=== PATIENT | male | born 1955 ===

== ENCOUNTER 2020-06-27 08:20 | Outpatient (REF) | payer OTHER, SELFPAY ==
[2020-06-27 09:43] LABS: Hematocrit 43.5 % (42-52); Hemoglobin 14.7 g/dl (14.0-18.0); Mean Corpuscular HGB Conc 33.8 g/dl (31.0-36.0); Mean Corpuscular Hemoglobin 31.7 pg (27.0-33.0); Mean Corpuscular Volume 93.8 fL (80-98); Mean Platelet Volume 11.2 fL (9.4-12.4); Platelet Count 212 X10*3/uL (160-400); Red Blood Count 4.64 X10*6/uL (4.60-5.80); Red Cell Distribution Width 12.4 % (11.0-16.0)
[2020-06-27 10:06] LABS: Estimated Average Glucose 128 mg/dL; Hemoglobin A1c % 6.1 %
[2020-06-27 10:27] LABS: Alanine Aminotransferase 22 U/L (0-40); Albumin Level 4.4 g/dL (3.5-5.0); Alkaline Phosphatase 80 U/L (39-117); Anion Gap 12 (12-20); Aspartate Amino Transferase 19 U/L (5-37); Bilirubin Total 1.2 mg/dL (0.0-1.0); Blood Urea Nitrogen 20 mg/dL (9-16); Calcium 8.7 mg/dL (8.4-10.2); Carbon Dioxide 25 mmol/L (22-29); Chloride 106 mmol/L (96-108); Cholesterol 213 mg/dL; Estimated Glomerular Filt Rate > 60; Glucose Random 116 mg/dL (60-115); HDL Cholesterol 46 mg/dL; LDL Cholesterol Calculated 134 mg/dl; Potassium 4.4 mmol/l (3.3-5.1); Sodium 139 mmol/L (135-145); Total Protein 6.8 g/dL (6.5-8.0); Triglycerides 168 mg/dL
[2020-06-27 10:39] LABS: Prostate Specific Antigen 1.99 ng/mL (<0.05-4.0); Vitamin D 25-OH Total 28.1 ng/mL (>30)
[2020-06-27 10:43] LABS: Creatinine Urine 149.12 mg/dL
== END 2020-06-27 08:21 | disposition home or self-care (01) ==
LOC: HO.LAB 08:20
PROVIDERS: PCP Nurse Practitioner Family; Visit Provider Nurse Practitioner Family
DX: E55.9 Vitamin D deficiency, unspecified (principal); E78.2 Mixed hyperlipidemia; I10 Essential (primary) hypertension; N52.9 Male erectile dysfunction, unspecified; R73.09 Other abnormal glucose; Z71.89 Other specified counseling; Z87.442 Personal history of urinary calculi
CPT/HCPCS: 36415; 80053; 80061; 82043; 82306; 83036; 84153; 85027

== ENCOUNTER 2020-07-16 11:06 | Outpatient (REF) | payer MEDICARE, SELFPAY ==
--- NOTE | 2020-07-16 11:12 | XR_ITS ---
EXAMINATION: XR CERVICAL SPINE CLINICAL INFORMATION: Headache, neck pain. COMPARISON: None TECHNIQUE: 6 views of the cervical spine were obtained. FINDINGS: There is mild straightening of the normal cervical lordosis with normal spinal alignment. Mild to moderate multilevel degenerative disc disease is seen most pronounced at C5-6 and C6-7. There is no acute fracture. Mild neural foraminal narrowing is seen at C5-6 and C6-7. The facet joints are unremarkable. The odontoid process is intact. The prevertebral soft tissues are unremarkable. XR/XR cervical spine 4V IMPRESSION: Mild to moderate multilevel degenerative changes as detailed above. Mild straightening of the normal cervical lordosis may be secondary to positioning and/or muscle spasm.
== END 2020-07-16 11:07 | disposition home or self-care (01) ==
LOC: HO.XRAY 11:06
PROVIDERS: PCP Nurse Practitioner Family; Visit Provider Nurse Practitioner Family
DX: M54.2 Cervicalgia (principal); R51.9 Headache, unspecified
CPT/HCPCS: 72050

== ENCOUNTER 2021-06-13 07:29 | Outpatient (REF) | payer MEDICARE, SELFPAY ==
[2021-06-13 09:21] LABS: Cholesterol 225 mg/dL; HDL Cholesterol 41 mg/dL; LDL Cholesterol Calculated 136 mg/dl; Triglycerides 244 mg/dL
== END 2021-06-13 07:30 | disposition home or self-care (01) ==
LOC: HO.LAB 07:29
PROVIDERS: PCP General Practice; Visit Provider General Practice
DX: E78.2 Mixed hyperlipidemia (principal)
CPT/HCPCS: 36415; 80061

== ENCOUNTER 2021-07-13 15:11 | Outpatient (REF) | payer MEDICARE, SELFPAY ==
--- NOTE | ~2021-07-13 | XR_ITS ---
EXAMINATION: XR CHEST CLINICAL INFORMATION: Essential hypertension. COMPARISON: Chest radiograph dated from 11/16/2018. TECHNIQUE: 2 views of the chest were obtained. FINDINGS: No significant abnormality is noted involving the heart, lungs, mediastinum, bony thorax or soft tissues. XR/XR chest 2V IMPRESSION: Unremarkable examination.
== END 2021-07-13 15:12 | disposition home or self-care (01) ==
LOC: HO.XRAY 15:11
PROVIDERS: Absent Provider General Practice; PCP General Practice; Visit Provider Emergency Medicine
DX: I10 Essential (primary) hypertension (principal); M79.622 Pain in left upper arm
CPT/HCPCS: 71046

== ENCOUNTER 2021-07-31 09:03 | Outpatient (REF) | payer MEDICARE, SELFPAY | END 2021-07-31 09:04 | disposition home or self-care (01) | LOC: HO.HMGCLDS 09:03 | PROVIDERS: Visit Provider Internal Medicine | DX: Z20.822 Contact with and (suspected) exposure to COVID-19 (principal) | CPT/HCPCS: C9803; U0003; U0005 ==

== ENCOUNTER 2021-09-21 08:25 | Outpatient (REF) | payer MEDICARE, SELFPAY ==
[2021-09-21 09:45] LABS: Binax Internal Control QC Valid; Binax Now Covid-19 Ag Negative (Negative)
== END 2021-09-21 08:26 | disposition home or self-care (01) ==
LOC: HO.LAB 08:25
PROVIDERS: Visit Provider Internal Medicine
DX: Z20.822 Contact with and (suspected) exposure to COVID-19 (principal)
CPT/HCPCS: C9803

== ENCOUNTER 2021-09-30 07:24 | Outpatient (REF) | payer MEDICARE, SELFPAY ==
--- NOTE | ~2021-09-30 | XR_ITS ---
EXAMINATION: XR HIP, LEFT CLINICAL INFORMATION: Left hip pain. COMPARISON: None TECHNIQUE: AP view of the pelvis as well as AP and frog-leg lateral views of the left hip. FINDINGS: Bilateral coxa varus angulation at the hips. Mild bilateral hip joint space narrowing with small marginal osteophytes. Small marginal osteophytes at the symphysis pubis. No osseous erosion. No fracture or dislocation. No abnormal soft tissue calcification. XR/XR hip LT w PEL1V IMPRESSION: 1. Bilateral coxa varus angulation of the hips. 2. Mild bilateral hip osteoarthritis. 3. Mild degenerative arthritis at the symphysis pubis.
--- NOTE | ~2021-09-30 | XR_ITS ---
EXAMINATION: XR LUMBOSACRAL SPINE CLINICAL INFORMATION: Lumbago, left-sided sciatica COMPARISON: CT abdomen and pelvis noncontrast 08/01/2017, lumbar spine radiographs 03/03/2015. TECHNIQUE: 4 views of the lumbar spine are obtained. FINDINGS: There is normal lumbar segmentation with 5 nonrib-bearing lumbar vertebrae of normal height. There is borderline levocurvature upper lumbar spine similar to prior study. Spina bifida occulta again noted lumbosacral junction. There is no interval lumbar vertebral compression or destructive process or definite spondylolisthesis. Again, there is borderline wedging vertebral body L1. Degenerative disc changes again noted at L1-L2 with L2-L3 and facet degeneration lumbosacral junction. The SI joints and visualized sacrum are unremarkable. Accentuated sacral kyphosis contour is stable. There is a calculus overlying lower pole right kidney approximately 0.6 cm. Other calculi noted previously is not visible on current exam. Surgical clips right upper quadrant are consistent with prior cholecystectomy. No gas unremarkable. XR/XR lumbar spine 2-3V IMPRESSION: 1. Mild wedging T1 similar to prior exams. No acute vertebral compression, spondylolisthesis, or or destructive process. 2. Degenerative disc changes L1-L2 and L2-L3, facet degeneration lumbosacral junction.
== END 2021-09-30 07:25 | disposition home or self-care (01) ==
LOC: HO.XRAY 07:24
PROVIDERS: Absent Provider General Practice; PCP General Practice; Visit Provider Internal Medicine
DX: M25.552 Pain in left hip (principal); M54.42 Lumbago with sciatica, left side
CPT/HCPCS: 72100; 73502

== ENCOUNTER 2021-12-18 09:31 | Outpatient (REF) | payer OTHER, SELFPAY ==
[2021-12-18 10:08] LABS: COVID-19 Test Negative (Negative)
== END 2021-12-18 09:32 | disposition home or self-care (01) ==
LOC: HO.LAB 09:31
PROVIDERS: Visit Provider Internal Medicine
DX: Z20.822 Contact with and (suspected) exposure to COVID-19 (principal)
CPT/HCPCS: 87635; C9803

== ENCOUNTER → 2021-12-23 13:40 | Outpatient (BNVA) | payer OTHER, SELFPAY | PROVIDERS: PCP General Practice; Visit Provider Psychiatry & Neurology Neurology | DX: G24.3 Spasmodic torticollis (principal); M54.2 Cervicalgia | CPT/HCPCS: 99212 ==

== ENCOUNTER → 2022-01-28 10:27 | Outpatient (REF) | payer OTHER, SELFPAY ==
--- NOTE | ~2022-01-28 | XR_ITS ---
EXAMINATION: XR CERVICAL SPINE CLINICAL INFORMATION: Cervicalgia COMPARISON: Cervical spine radiograph from 09/15/2019 TECHNIQUE: 4 views of the cervical spine were obtained. FINDINGS: No acute visible fracture or dislocation. Moderate multilevel degenerative changes disc space narrowing, endplate sclerosis, osteophyte formation, and facet arthropathy. Very slight grade 1 anterolisthesis of C4 on C5. Visualized dens is intact. Lateral masses are symmetric. Vertebral body heights and disc spaces are maintained. Prevertebral soft tissues are unremarkable. Posterior elements are intact. Paraspinal soft tissues are unremarkable. Visualized portions of the upper chest are unremarkable. XR/XR cervical spine 3V IMPRESSION: 1. No acute visible fracture or dislocation. 2. Moderate multilevel degenerative changes. 3. Very slight grade 1 anterolisthesis of C4 on C5
== END | disposition home or self-care (01) ==
LOC: HO.XRAY 10:27
PROVIDERS: PCP General Practice; Visit Provider Psychiatry & Neurology Neurology
DX: M54.2 Cervicalgia (principal)
CPT/HCPCS: 72040

== ENCOUNTER 2022-02-11 06:57 | Outpatient (RCR) | payer OTHER, SELFPAY ==
[2022-02-11 07:08] VITALS: BP 155/82; PULSE 72; O2SAT 97
== END 2022-03-31 14:49 | disposition home or self-care (01) ==
LOC: HO.PT 06:57
PROVIDERS: PCP General Practice; Visit Provider General Practice
DX: M54.2 Cervicalgia (principal)
CPT/HCPCS: 97112; 97162

== ENCOUNTER → 2022-02-23 08:17 | Outpatient (BNVA) | payer OTHER, SELFPAY | PROVIDERS: PCP General Practice; Visit Provider Nurse Practitioner Family | DX: R25.1 Tremor, unspecified (principal); G24.3 Spasmodic torticollis; M54.2 Cervicalgia | CPT/HCPCS: 99212 ==

== ENCOUNTER 2022-06-17 13:18 | Outpatient (REF) | payer OTHER, SELFPAY ==
--- NOTE | 2022-06-17 09:00 | EMG_ITS ---
Right median and ulnar motor and sensory studies were performed. Right radial sensory study was performed. Paraspinal muscles were tested with a needle. IMPRESSION: 1. Mild right median neuropathy across carpal tunnel. 2. Right mid to upper chronic cervical radiculopathy. MD TRACEE Matute/JASE / [id number]
== END 2022-06-17 13:19 | disposition home or self-care (01) ==
LOC: HO.NEURO 13:18
PROVIDERS: Visit Provider Nurse Practitioner Family
DX: G24.3 Spasmodic torticollis (principal); M54.2 Cervicalgia
CPT/HCPCS: 95886; 95909

== ENCOUNTER → 2022-06-29 09:13 | Outpatient (BNVA) | payer OTHER, SELFPAY | PROVIDERS: PCP General Practice; Visit Provider Nurse Practitioner Family | DX: M54.2 Cervicalgia (principal); R25.1 Tremor, unspecified; G47.33 Obstructive sleep apnea (adult) (pediatric); G56.01 Carpal tunnel syndrome, right upper limb | CPT/HCPCS: 99212 ==

== ENCOUNTER → 2022-11-02 08:03 | Outpatient (BNVA) | payer OTHER, SELFPAY | PROVIDERS: PCP General Practice; Visit Provider Nurse Practitioner Family | DX: M48.02 Spinal stenosis, cervical region (principal); M54.2 Cervicalgia; G24.9 Dystonia, unspecified; G47.33 Obstructive sleep apnea (adult) (pediatric); R25.1 Tremor, unspecified | CPT/HCPCS: 99212 ==

== ENCOUNTER 2022-11-10 11:15 | Outpatient (REF) | payer OTHER, SELFPAY ==
--- NOTE | ~2022-11-10 | XR_ITS ---
EXAMINATION: XR CHEST CLINICAL INFORMATION: Bilateral posterior chest pain COMPARISON: None available. TECHNIQUE: 2 views of the chest were obtained. FINDINGS: No significant abnormality is noted involving the heart, lungs, mediastinum, bony thorax or soft tissues. XR/XR chest 2V IMPRESSION: Unremarkable chest examination.
== END 2022-11-10 11:16 | disposition home or self-care (01) ==
LOC: HO.XRAY 11:15
PROVIDERS: PCP General Practice; Visit Provider Emergency Medicine
DX: R07.89 Other chest pain (principal)
CPT/HCPCS: 71046

== ENCOUNTER → 2022-11-23 12:20 | Outpatient (REF) | payer OTHER, SELFPAY | LOC: HO.SL 12:20 | PROVIDERS: Visit Provider Nurse Practitioner Family | DX: G47.33 Obstructive sleep apnea (adult) (pediatric) (principal) | CPT/HCPCS: 95806 ==

== ENCOUNTER → 2022-12-01 08:05 | Outpatient (BNVA) | payer OTHER, SELFPAY | PROVIDERS: PCP General Practice; Visit Provider Physician Assistant | DX: M54.12 Radiculopathy, cervical region (principal) | CPT/HCPCS: 99202 ==

== ENCOUNTER → 2022-12-07 08:39 | Outpatient (BNVA) | payer OTHER, SELFPAY | PROVIDERS: PCP General Practice; Visit Provider Physician Assistant | DX: R25.1 Tremor, unspecified (principal) | CPT/HCPCS: 99202 ==

== ENCOUNTER 2022-12-25 19:36 | Emergency (ER) | payer OTHER, SELFPAY ==
--- NOTE | ~2022-12-25 | CT_ITS ---
EXAMINATION: CT ABDOMEN AND PELVIS WITHOUT CONTRAST CLINICAL INFORMATION: Left-sided flank pain. COMPARISON: Renal ultrasound 06/26/2019. CT abdomen/pelvis 08/01/2017. TECHNIQUE: Multidetector volumetric imaging was performed from the superior aspect of the liver through the pubic symphysis. Sagittal and coronal reformatted images were obtained on the technologist's workstation. This CT examination was performed using dose optimization techniques as appropriate, variously including the following: *Automated exposure control *Adjustment of mA and/or kV according to patient size (this includes techniques or standardized protocols for targeted exams where dose is matched to indication/reason for exam; i.e. extremities or head) *Use of iterative reconstruction technique DLP: 740 mGy-cm FINDINGS: LUNG BASES: Multiple calcified granulomas. Evaluation of parenchymal details and a small pulmonary nodules is limited due to motion. No focal consolidation or pleural effusion. LIVER, GALLBLADDER, AND BILIARY TREE: Decreased attenuation of the liver parenchyma suggesting hepatic steatosis. Otherwise, liver is normal in size and shape. No discrete focal lesion is limited noncontrast examination. Cholecystectomy. No biliary ductal dilatation. PANCREAS: Limited noncontrast examination, unremarkable. SPLEEN: Unremarkable. ADRENAL GLANDS: No adrenal mass. KIDNEYS AND URETERS: There is a 3 mm calculus in the left ureteropelvic junction with mild upstream hydronephrosis. There is a 0.6 cm nonobstructive calculus in the lower right kidney and an additional 0.2 cm calculus in the interpolar right kidney. No evidence of right-sided hydroureteronephrosis. There is a 3.5 cm simple fluid attenuating cortical cyst in the upper left kidney, for which no imaging follow-up is recommended. BLADDER: Partially under distended limiting assessment of wall thickening. No calcified intraluminal calculi or significant perivesical fat stranding. GASTROINTESTINAL TRACT: Nonspecific gastric distention, likely related with postprandial state. The small bowel is nondilated. Normal appendix. Colonic diverticulosis. No pericolonic inflammatory changes or evidence of bowel obstruction. ABDOMINAL WALL: Small left-sided greater than right fat-containing inguinal hernias. LYMPH NODES: No lymphadenopathy. VASCULAR: Abdominal aorta is normal in caliber. PELVIC VISCERA: Mild prostatomegaly. OSSEOUS STRUCTURES: No acute or aggressive appearing osseous abnormalities. Degenerative changes of the spine. CT/CT abdomen pelvis wo IV con IMPRESSION: 1. There is a 3 mm calculus in the left ureteropelvic junction with mild upstream hydroureteronephrosis. 2. Nonobstructive right-sided renal calculi. 3. Nonspecific gastric distention, possibly related with postprandial state. However, gastroparesis is not excluded, correlate clinically. 4. Hepatic steatosis. 5. Diverticulosis but no evidence of acute diverticulitis.
[2022-12-25 19:53] VITALS: BP 145/84; PULSE 88; RESP 16; TEMP 36.7; O2SAT 95; BMI 33.4
--- NOTE | 2022-12-25 19:57 | ED.GENADULT ---
HPI - General Adult General Chief complaint: General Medical <BIN Salazar - Last Filed: 12/25/22 20:02> Stated complaint: lower back and abd pain, difficulty breathing <BIN Salazar - Last Filed: 12/25/22 20:02> Time Seen by Provider: 12/25/22 20:32 <BIN Salazar - Last Filed: 12/25/22 20:02> Source: patient <Riley Rascon MD - Last Filed: 12/26/22 01:22> Mode of arrival: ambulatory <Riley Rascon MD - Last Filed: 12/26/22 01:22> Limitations: no limitations <Riley Rascon MD - Last Filed: 12/26/22 01:22> History of Present Illness HPI narrative: Patient with history of kidney stone noticed sudden onset of pain in the left flank left upper abdomen radiating to left testicle and left thigh no fever no chills no hematuria no urinary symptom <Riley Rascon MD - Last Filed: 12/26/22 01:22> Related Data Home medications: Home Medications Medication Instructions Recorded Confirmed acetaminophen 650 mg 650 mg PO Q8H PRN 12/23/21 11/02/22 tablet,extended release (Mapap Arthritis Pain) fluticasone propionate 50 spray intranasal 12/23/21 11/02/22 mcg/actuation nasal spray,suspension sildenafil 100 mg tablet (Viagra) 50 - 100 mg PO DAILY PRN 12/23/21 11/02/22 ergocalciferol (vitamin D2) 1,250 1,250 mcg PO QWEEK 06/29/22 11/02/22 mcg (50,000 unit) capsule lisinopril 10 1 tab PO DAILY 06/29/22 11/02/22 mg-hydrochlorothiazide 12.5 mg tablet ketorolac 0.5 % eye drops 1 drp ophthalmic (eye) TID 11/02/22 11/02/22 Previous Rx's Medication Instructions Recorded azelastine 137 mcg (0.1 %) nasal 2 spray intranasal BID 28 days #30 11/02/22 spray aerosol mL oxycodone 5 mg tablet 5 mg PO Q6H PRN pain #20 tabs 12/25/22 tamsulosin 0.4 mg capsule (Flomax) 0.4 mg PO BEDTIME #10 caps 12/25/22 <BIN Salazar - Last Filed: 12/25/22 20:02> Allergies/adverse reactions: Allergies Allergy/AdvReac Type Severity Reaction Status Date / Time No Known Allergies Allergy Verified 12/07/22 09:30 <BIN Salazar - Last Filed: 12/25/22 20:02> Review of Systems Review of Systems: Yes all other systems are reviewed and are negative <Riley Rascon MD - Last Filed: 12/26/22 01:22> [facility] Past Medical History Medical History: Medical History HTN (hypertension) Hyperlipidemia Obesity <BIN Salazar - Last Filed: 12/25/22 20:02> Surgical History: Surgical History Hx of carpal tunnel repair Hx of cataract surgery Hx of cholecystectomy Hx of hernia repair Hx of tonsillectomy <BIN Salazar - Last Filed: 12/25/22 20:02> Family History Family History: Family History Sister Diabetes Son GALLO (obstructive sleep apnea) <BIN Salazar - Last Filed: 12/25/22 20:02> Social History Social History: Social History Alcohol intake: never Patient Tobacco Use Status: Never used Tobacco Advance Directives: No Advance Directives Information Provided: Yes Current occupational status: employed 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, 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 <BIN Salazar - Last Filed: 12/25/22 20:02> Physical Exam ED Vital Signs: Vital Signs - 24 hr 12/25/22 19:53 12/25/22 21:05 12/25/22 22:53 Temperature 98.1 F Pulse Rate 88 90 77 Respiratory Rate 16 16 16 Blood Pressure 145/84 H 136/72 122/66 Pulse Oximetry 95 95 95 Oxygen Delivery Method Room Air Room Air Room Air BMI result Body Mass Index 33.4 <BIN Salazar - Last Filed: 12/25/22 20:02> Vital Signs - 24 hr 12/25/22 19:53 12/25/22 21:05 12/25/22 22:53 Temperature 98.1 F Pulse Rate 88 90 77 Respiratory Rate 16 16 16 Blood Pressure 145/84 H 136/72 122/66 Pulse Oximetry 95 95 95 Oxygen Delivery Method Room Air Room Air Room Air BMI result Body Mass Index 33.4 <Riley Rascon MD - Last Filed: 12/26/22 01:22> Appearance: Alert. Oriented X3. In moderate distress. Eyes: No pallor it ENT: Pharynx normal. Oral Mucosa moist Neck: Normal inspection. Neck supple. CVS: Normal heart rate and rhythm. Pulses normal. Respiratory: No respiratory distress. Equal air entry bilateral, no wheezing/rales/rhonchi Abdomen: Soft tender left CVA and left upper abdomen. Bowel sounds are present, no mass palpable, L CVA tenderness Skin: Skin warm and dry. Normal skin color. Normal skin turgor. Extremities: No lower extremity edema. No calf tenderness left sciatic notch tenderness SLR positive at 60 degree left side Neuro: Oriented X 3. No motor deficit. No sensory deficit.No cerebellar signs , cranial nerves II-XII intact <Riley Rascon MD - Last Filed: 12/26/22 01:22> Course Course Course Narrative: This is an RME: Additional HPI, ROS, PE not included below will be deferred to primary provider. This is a 67-year-old male, with a past medical history of hypertension, hyperlipidemia, sleep apnea, and kidney stones presents emergency number with complaints of left-sided flank pain x 45 minutes. Patient denies any nausea or vomiting. Symptoms feel somewhat similar to kidney stones in the past. VSS. No urinary symptoms. No fevers or chills. Pt stable to return to the waiting room until treatment room becomes available. Plan: Labs, UA, CT abd and pelvis. <BIN Salazar - Last Filed: 12/25/22 20:02> Medications Administered Discontinued Medications Generic Name Dose Route Start Last Admin Trade Name Freq PRN Reason Stop Dose Admin Sodium Chloride 1,000 mls @ 999 mls/hr 12/25/22 20:45 12/25/22 22:52 Ns IV 12/25/22 21:45 Infused .Q1H1M ONE Infusion Ketorolac Tromethamine 30 mg 12/25/22 20:44 12/25/22 21:04 Ketorolac Tromethamine 30 Mg/Ml Vial IVPUSH 12/25/22 20:45 30 mg ONCE ONE Administration Morphine Sulfate 4 mg 12/25/22 20:45 12/25/22 21:02 Morphine Sulfate 4 Mg/Ml Cartridge IVPUSH 12/25/22 20:46 4 mg ONCE ONE Administration Protocol Ondansetron HCl 4 mg 12/25/22 20:45 12/25/22 21:02 Ondansetron Hcl 4 Mg/2 Ml Vial IVPUSH 12/25/22 20:46 4 mg ONCE ONE Administration Oxycodone HCl 10 mg 12/25/22 22:19 12/25/22 22:51 Oxycodone Hcl Immed Release 5 Mg Tablet PO 12/25/22 22:20 10 mg ONCE ONE Administration Tamsulosin HCl 0.4 mg 12/25/22 22:19 12/25/22 22:51 Tamsulosin Hcl 0.4 Mg Capsule PO 12/25/22 22:20 0.4 mg ONCE ONE Administration <BIN Salazar - Last Filed: 12/25/22 20:02> Medications Administered Discontinued Medications Generic Name Dose Route Start Last Admin Trade Name Freq PRN Reason Stop Dose Admin Sodium Chloride 1,000 mls @ 999 mls/hr 12/25/22 20:45 12/25/22 22:52 Ns IV 12/25/22 21:45 Infused .Q1H1M ONE Infusion Ketorolac Tromethamine 30 mg 12/25/22 20:44 12/25/22 21:04 Ketorolac Tromethamine 30 Mg/Ml Vial IVPUSH 12/25/22 20:45 30 mg ONCE ONE Administration Morphine Sulfate 4 mg 12/25/22 20:45 12/25/22 21:02 Morphine Sulfate 4 Mg/Ml Cartridge IVPUSH 12/25/22 20:46 4 mg ONCE ONE Administration Protocol Ondansetron HCl 4 mg 12/25/22 20:45 12/25/22 21:02 Ondansetron Hcl 4 Mg/2 Ml Vial IVPUSH 12/25/22 20:46 4 mg ONCE ONE Administration Oxycodone HCl 10 mg 12/25/22 22:19 12/25/22 22:51 Oxycodone Hcl Immed Release 5 Mg Tablet PO 12/25/22 22:20 10 mg ONCE ONE Administration Tamsulosin HCl 0.4 mg 12/25/22 22:19 12/25/22 22:51 Tamsulosin Hcl 0.4 Mg Capsule PO 12/25/22 22:20 0.4 mg ONCE ONE Administration <Riley Rascon MD - Last Filed: 12/26/22 01:22> Medical Decision Making Medical Decision Making [facility] Narrative: Patient is a 3 mm proximal left ureteric stone with mild hydronephrosis felt better after IV pain medication pain-free at time of discharge advised to follow up with his urologist will give him Flomax along with oxycodone for pain control <Riley Rascon MD - Last Filed: 12/26/22 01:22> Lab Data [facility] Lab Attestation statement: I reviewed the patient's lab results. <Riley Rascon MD - Last Filed: 12/26/22 01:22> Result Diagrams: 12/25/22 20:17 12/25/22 20:17 <BIN Salazar - Last Filed: 12/25/22 20:02> Labs: Lab Results 12/25/22 12/25/22 12/25/22 Range/Units 20:17 20:17 20:17 WBC 5.7 (4.8-10.8) X10*3/uL RBC 4.35 L (4.60-5.80) X10*6/uL Hgb 14.0 (14.0-18.0) g/dl Hct 40.7 L (42.0-52.0) % MCV 93.6 (80.0-98.0) fL MCH 32.2 (27.0-33.0) pg MCHC 34.4 (31.0-36.0) g/dl RDW 12.5 (11.0-16.0) % Plt Count 200 (160-400) X10*3/uL MPV 10.5 (9.4-12.4) fL Immature Gran % (Auto) 0.5 H (0.0-0.4) % Neut % (Auto) 57.7 (45-73) % Lymph % (Auto) 29.0 (20-40) % Door % (Auto) 9.2 (2-11) % Eos % (Auto) 2.7 (0-4) % Baso % (Auto) 0.9 (0-2) % Lymph # (Auto) 1.6 (1.2-4.9) X10*3/uL Door # (Auto) 0.5 (0.1-1.2) X10*3/uL Eos # (Auto) 0.2 (0.0-0.4) X10*3/uL Baso # (Auto) 0.1 (0.0-0.2) X10*3/uL Abs Immat Gran (auto) 0.03 (0.00-0.03) X10*3/uL Absolute Neuts (auto) 3.3 (2.0-8.3) x10*3/uL Absolute Nucleated RBC 0.000 (0.0-0.012) X10*3/uL Nucleated RBC % (auto) 0.0 (0.0-0.2) /100WBC Sodium 143 (135-145) mmol/L Potassium 3.9 (3.3-5.1) mmol/L Chloride 106 (96-108) mmol/L Carbon Dioxide 28 (22-29) mmol/L Anion Gap 13 (12-20) BUN 24 H (9-16) mg/dL Creatinine 1.53 H (0.5-1.4) mg/dL Estim Creat Clear Calc 52.1 Estimated GFR 45 Random Glucose 127 H (60-115) mg/dL Calcium 9.7 D (8.4-10.2) mg/dL Magnesium 2.1 (1.6-2.6) mg/dL Total Bilirubin 0.4 (0.0-1.0) mg/dL Direct Bilirubin 0.1 (0.0-0.5) mg/dL AST 16 (5-37) U/L ALT 19 (0-40) U/L Alkaline Phosphatase 81 (39-117) U/L Total Protein 6.8 (6.5-8.0) g/dL Albumin 4.2 (3.5-5.0) g/dL Lipase 64 (8-78) U/L Urine Color Yellow Urine Appearance Clear Urine pH 6.5 (5.0-9.0) Ur Specific Kake 1.015 (1.005-1.025) Urine Protein Negative (Neg-Trace) mg/dL Urine Glucose (UA) Negative (Negative) mg/dL Urine Ketones Negative (Negative) mg/dL Urine Blood Small (1+) H (Negative) Urine Nitrite Negative (Negative) Ur Leukocyte Esterase Negative (Negative) Urine RBC >20 H (0-2) /HPF Urine WBC 0-5 (0-5) /HPF Ur Squamous Epith Cells 0-2 (0-2) /HPF Urine Bacteria None Seen (None Seen) Hyaline Casts 0-2 (0-2) /LPF <BIN Salazar - Last Filed: 12/25/22 20:02> Lab Results 12/25/22 12/25/22 12/25/22 Range/Units 20:17 20:17 20:17 WBC 5.7 (4.8-10.8) X10*3/uL RBC 4.35 L (4.60-5.80) X10*6/uL Hgb 14.0 (14.0-18.0) g/dl Hct 40.7 L (42.0-52.0) % MCV 93.6 (80.0-98.0) fL MCH 32.2 (27.0-33.0) pg MCHC 34.4 (31.0-36.0) g/dl RDW 12.5 (11.0-16.0) % Plt Count 200 (160-400) X10*3/uL MPV 10.5 (9.4-12.4) fL Immature Gran % (Auto) 0.5 H (0.0-0.4) % Neut % (Auto) 57.7 (45-73) % Lymph % (Auto) 29.0 (20-40) % Door % (Auto) 9.2 (2-11) % Eos % (Auto) 2.7 (0-4) % Baso % (Auto) 0.9 (0-2) % Lymph # (Auto) 1.6 (1.2-4.9) X10*3/uL Door # (Auto) 0.5 (0.1-1.2) X10*3/uL Eos # (Auto) 0.2 (0.0-0.4) X10*3/uL Baso # (Auto) 0.1 (0.0-0.2) X10*3/uL Abs Immat Gran (auto) 0.03 (0.00-0.03) X10*3/uL Absolute Neuts (auto) 3.3 (2.0-8.3) x10*3/uL Absolute Nucleated RBC 0.000 (0.0-0.012) X10*3/uL Nucleated RBC % (auto) 0.0 (0.0-0.2) /100WBC Sodium 143 (135-145) mmol/L Potassium 3.9 (3.3-5.1) mmol/L Chloride 106 (96-108) mmol/L Carbon Dioxide 28 (22-29) mmol/L Anion Gap 13 (12-20) BUN 24 H (9-16) mg/dL Creatinine 1.53 H (0.5-1.4) mg/dL Estim Creat Clear Calc 52.1 Estimated GFR 45 Random Glucose 127 H (60-115) mg/dL Calcium 9.7 D (8.4-10.2) mg/dL Magnesium 2.1 (1.6-2.6) mg/dL Total Bilirubin 0.4 (0.0-1.0) mg/dL Direct Bilirubin 0.1 (0.0-0.5) mg/dL AST 16 (5-37) U/L ALT 19 (0-40) U/L Alkaline Phosphatase 81 (39-117) U/L Total Protein 6.8 (6.5-8.0) g/dL Albumin 4.2 (3.5-5.0) g/dL Lipase 64 (8-78) U/L Urine Color Yellow Urine Appearance Clear Urine pH 6.5 (5.0-9.0) Ur Specific Kake 1.015 (1.005-1.025) Urine Protein Negative (Neg-Trace) mg/dL Urine Glucose (UA) Negative (Negative) mg/dL Urine Ketones Negative (Negative) mg/dL Urine Blood Small (1+) H (Negative) Urine Nitrite Negative (Negative) Ur Leukocyte Esterase Negative (Negative) Urine RBC >20 H (0-2) /HPF Urine WBC 0-5 (0-5) /HPF Ur Squamous Epith Cells 0-2 (0-2) /HPF Urine Bacteria None Seen (None Seen) Hyaline Casts 0-2 (0-2) /LPF <Riley Rascon MD - Last Filed: 12/26/22 01:22> Radiology Impression Discussion of test interpretation with radiology: I have reviewed the radiologist's reading. <Riley Rascon MD - Last Filed: 12/26/22 01:22> Radiologist Impression: CT/CT abdomen pelvis wo IV con IMPRESSION: 1.? There is a 3 mm calculus in the left ureteropelvic junction with mild upstream hydroureteronephrosis. 2.? Nonobstructive right-sided renal calculi. 3.? Nonspecific gastric distention, possibly related with postprandial state. However, gastroparesis is not excluded, correlate clinically. 4.? Hepatic steatosis. 5.? Diverticulosis but no evidence of acute diverticulitis <Riley Rascon MD - Last Filed: 12/26/22 01:22> Discharge Plan Discharge Clinical Impression: Kidney stone on left side <BIN Salazar - Last Filed: 12/25/22 20:02> Patient Disposition: Home, Self-Care <BIN Salazar - Last Filed: 12/25/22 20:02> Instructions: Kidney Stones (ED) <BIN Salazar - Last Filed: 12/25/22 20:02> Additional Instructions: Drink plenty of fluids Pain medication as prescribed Take Flomax daily till you have pain/stone Follow with PCP/urologist <BIN Salazar - Last Filed: 12/25/22 20:02> Prescriptions: New oxycodone 5 mg tablet 5 mg PO Q6H PRN (Reason: pain) Qty: 20 0RF Rx Instructions: Partial Fill upon patient request. tamsulosin [Flomax] 0.4 mg capsule 0.4 mg PO BEDTIME Qty: 10 0RF No Action ketorolac 0.5 % drops 1 drp ophthalmic (eye) TID azelastine 137 mcg (0.1 %) aerosol,spray 2 spray intranasal BID 28 Days Qty: 30 3RF Rx Instructions: administer into each nostril fluticasone propionate 50 mcg/actuation spray,suspension intranasal sildenafil [Viagra] 100 mg tablet 50 - 100 mg PO DAILY PRN acetaminophen [Mapap Arthritis Pain] 650 mg tablet extended release 650 mg PO Q8H PRN lisinopril-hydrochlorothiazide 10-12.5 mg tablet 1 tab PO DAILY ergocalciferol (vitamin D2) 1,250 mcg (50,000 unit) capsule 1,250 mcg PO QWEEK <BIN Salazar - Last Filed: 12/25/22 20:02> Interventions: ED Discharge Assessment Last Done: 12/25/22 22:52 <BIN Salazar - Last Filed: 12/25/22 20:02> Discharge Date/Time: 12/25/22 23:01 <BIN Salazar - Last Filed: 12/25/22 20:02>
[2022-12-25 20:22] LABS: MANUAL DIFF FLAG NO
[2022-12-25 20:23] LABS: Basophils Absolute Auto 0.1 X10*3/uL (0.0-0.2); Basophils Percent Auto 0.9 % (0-2); Eosinophils Absolute Auto 0.2 X10*3/uL (0.0-0.4); Eosinophils Percent Auto 2.7 % (0-4); Hematocrit 40.7 % (42.0-52.0); Imm Gran Abs Auto 0.03 X10*3/uL (0.00-0.03); Imm Gran Pct Auto 0.5 % (0.0-0.4); Lymphocytes Absolute Auto 1.6 X10*3/uL (1.2-4.9); Mean Corpuscular HGB Conc 34.4 g/dl (31.0-36.0); Mean Corpuscular Hemoglobin 32.2 pg (27.0-33.0); Mean Corpuscular Volume 93.6 fL (80.0-98.0); Mean Platelet Volume 10.5 fL (9.4-12.4); Monocytes Absolute Auto 0.5 X10*3/uL (0.1-1.2); Monocytes Percent Auto 9.2 % (2-11); Neutrophils Absolute Auto 3.3 x10*3/uL (2.0-8.3); Neutrophils Percent Auto 57.7 % (45-73); Platelet Count 200 X10*3/uL (160-400); Red Blood Count 4.35 X10*6/uL (4.60-5.80); Red Cell Distribution Width 12.5 % (11.0-16.0); White Blood Count 5.7 X10*3/uL (4.8-10.8)
[2022-12-25 20:25] LABS: Appearance Urine Clear; Color Urine Yellow; Glucose Urine UA Negative (Negative); Leukocyte Esterase Urine Negative (Negative); Nitrite Urine Negative (Negative); PH 6.5 (5.0-9.0); Specific Gravity - Urine 1.015 (1.005-1.025); UMIC TRIGGER UACC YES; Urine Blood Small (1+) (Negative); Urine Ketones Negative (Negative); Urine Protein Negative (Neg-Trace)
[2022-12-25 20:38] LABS: Alanine Aminotransferase 19 U/L (0-40); Albumin Level 4.2 g/dL (3.5-5.0); Alkaline Phosphatase 81 U/L (39-117); Anion Gap 13 (12-20); Aspartate Amino Transferase 16 U/L (5-37); Bilirubin Direct 0.1 mg/dL (0.0-0.5); Bilirubin Total 0.4 mg/dL (0.0-1.0); Blood Urea Nitrogen 24 mg/dL (9-16); Calcium 9.7 mg/dL (8.4-10.2); Carbon Dioxide 28 mmol/L (22-29); Chloride 106 mmol/L (96-108); Creatinine Clr Calc Pharmacy 52.1; Estimated Glomerular Filt Rate 45; Glucose Random 127 mg/dL (60-115); Lipase 64 U/L (8-78); Magnesium 2.1 mg/dL (1.6-2.6); Potassium 3.9 mmol/L (3.3-5.1); Sodium 143 mmol/L (135-145); Total Protein 6.8 g/dL (6.5-8.0)
[2022-12-25] MEDS: ondansetron HCL 4 MG/2 ML VIAL IVPUSH (21:02)
[2022-12-25] MEDS: 0.9 % Sodium Chloride 1,000 ML 999 ML IV (21:02)
[2022-12-25] MEDS: Morphine Sulfate 4 MG/ML CARTRIDGE IVPUSH (21:02)
[2022-12-25] MEDS: Ketorolac Tromethamine 30 MG/ML VIAL IVPUSH (21:04)
[2022-12-25 21:05] VITALS: BP 136/72; PULSE 90; RESP 16; O2SAT 95
[2022-12-25 22:17] LABS: Bacteria Urine None Seen (None Seen); Hyaline Casts Urine 0-2 /LPF (0-2); RBC Urine >20 /HPF (0-2); Squamous Epithelial Cell Urine 0-2 /HPF (0-2); WBC Urine 0-5 /HPF (0-5)
[2022-12-25] MEDS: oxyCODONE HCl Immed Release 5 MG TABLET 10 MG PO (22:51)
[2022-12-25] MEDS: Tamsulosin HCL 0.4 MG CAPSULE PO (22:51)
[2022-12-25 22:53] VITALS: BP 122/66; PULSE 77; RESP 16; O2SAT 95
== END 2022-12-25 23:01 | disposition home or self-care (01) ==
PROVIDERS: Physician Assistant Medical; Emergency Provider Internal Medicine; PCP General Practice
DX: N13.2 Hydronephrosis with renal and ureteral calculous obstruction (principal); I10 Essential (primary) hypertension; E78.5 Hyperlipidemia, unspecified; Z79.899 Other long term (current) drug therapy
CPT/HCPCS: 36415; 74176; 80048; 80076; 81001; 83690; 83735; 85025; 96361; 96374; 96375; 99284; J1885; J2270; J2405

== ENCOUNTER → 2023-01-12 08:45 | Outpatient (BNVA) | payer OTHER, SELFPAY | PROVIDERS: PCP General Practice; Visit Provider Nurse Practitioner Family | DX: N40.1 Benign prostatic hyperplasia with lower urinary tract symptoms (principal); N13.8 Other obstructive and reflux uropathy; N39.43 Post-void dribbling; N20.0 Calculus of kidney; Z12.5 Encounter for screening for malignant neoplasm of prostate; Z79.899 Other long term (current) drug therapy | CPT/HCPCS: 51798; 99202 ==

== ENCOUNTER 2023-04-11 10:13 | Outpatient (REF) | payer OTHER, SELFPAY | END 2023-04-11 10:14 | disposition home or self-care (01) | LOC: HO.HMGCX 10:13 | PROVIDERS: PCP General Practice; Visit Provider Nurse Practitioner Family | DX: Z13.89 Encounter for screening for other disorder (principal) ==

== ENCOUNTER 2023-04-12 07:31 | Outpatient (REF) | payer OTHER, SELFPAY ==
[2023-04-12 09:39] LABS: PSA,Total (Free>4and<10) 2.69 ng/mL (0.00-4.00)
== END 2023-04-12 07:32 | disposition home or self-care (01) ==
LOC: HO.LAB 07:31
PROVIDERS: PCP General Practice; Visit Provider Nurse Practitioner Family
DX: Z12.5 Encounter for screening for malignant neoplasm of prostate (principal); N40.0 Benign prostatic hyperplasia without lower urinary tract symptoms
CPT/HCPCS: 36415; 84153

== ENCOUNTER 2023-04-15 08:11 | Outpatient (REF) | payer OTHER, SELFPAY ==
--- NOTE | ~2023-04-15 | US_ITS ---
EXAMINATION: US RETROPERITONEAL COMPLETE (RENAL) CLINICAL INFORMATION: Calculus of kidney. COMPARISON: CT abdomen and pelvis 12/25/2022. Renal ultrasound 06/26/2019 and 01/26/2018. X-ray abdomen KUB 01/21/2016. TECHNIQUE: Real-time imaging of the kidneys and bladder. Limited visualization due to bowel gas. FINDINGS: RIGHT KIDNEY: 11.4 x 5.5 x 6.3 cm (SAG x AP x TRV). There is a 5.0 x 5.3 x 4.4 cm hypoechoic mass superior to the right kidney, difficult to characterize due to limited visualization, possibly related to the right adrenal gland versus an exophytic right renal mass. No hydronephrosis. No renal calculi. Limited visualization. LEFT KIDNEY: 12.6 x 4.8 x 4.1 cm (SAG x AP x TRV). Upper pole 4.3 x 2.8 x 3.7 cm Bosniak 1 cyst. There is no indication for follow up imaging. Limited visualization. Midpole: 0.3 cm and 0.2 cm echogenic foci are characteristic of renal calculi. No hydronephrosis. BLADDER: Partially distended, limiting evaluation. Bilateral ureteral jets are demonstrated. Prevoid bladder volume is 191 mL. Postvoid bladder volume is 8.6 mL. Enlarged prostate, volume 46.8 mL, indents the floor of the bladder. US/US retroperitoneal comp IMPRESSION: 1. A 5.3 cm hypoechoic mass superior to the right kidney, difficult to characterize due to limited visualization, possibly related to the right adrenal gland versus an exophytic right renal mass. 2. Midpole 0.3 cm and 0.2 cm echogenic left renal calculi. No hydronephrosis. 3. Enlarged prostate, volume 46.8 mL, indents the floor of the bladder.
== END 2023-04-15 08:12 | disposition home or self-care (01) ==
LOC: HO.HMGCX 08:11
PROVIDERS: PCP General Practice; Visit Provider Nurse Practitioner Family
DX: N20.0 Calculus of kidney (principal); N39.43 Post-void dribbling
CPT/HCPCS: 76770

== ENCOUNTER 2023-04-18 17:37 | Outpatient (REF) | payer OTHER, SELFPAY ==
[2023-04-19 05:29] LABS: CT PCR NOT DETECTED (Not Detect.); NG PCR NOT DETECTED (Not Detect.)
== END 2023-04-18 17:38 | disposition home or self-care (01) ==
LOC: HO.HHCLNP 17:37
PROVIDERS: Visit Provider Internal Medicine
DX: R30.0 Dysuria (principal)
CPT/HCPCS: 0353U; 87086

== ENCOUNTER 2023-04-22 08:23 | Outpatient (AMB) | payer OTHER, SELFPAY ==
--- NOTE | 2023-04-22 08:35 | MHC.OFFVIS ---
Intake Intake Visit Reasons: 6w/US/PSA(set) Intake Note: Patient presents for follow up ultrasound/psa/nephrolithiasis/BPH Urology Medications: Vitamin B6 Blood Thinner: none PVR: 38ml's Inclusion Internship Required: No Information Interpreted: non-clinical only Accompanied by: Self / Same As Patient Allergies No Known Allergies Allergy (Verified 04/22/23 09:10) Medication List - Last Reconciled 04/22/23 by BO Rg-JAH acetaminophen ER (Mapap Arthritis Pain) 650 mg PO Q8H PRN ergocalciferol (vitamin D2) 1,250 mcg PO QWEEK fluticasone propionate 50 mcg/actuation sprays intranasal ketorolac 0.5% 1 drp ophthalmic (eye) TID lisinopril-hydrochlorothiazide 10-12.5 mg 1 tab PO DAILY pyridoxine (vitamin B6) 100 mg PO DAILY 90 days tamsulosin 0.4 mg PO QAM HPI HPI Comments History of Present Illness Details Palomo is a pleasant 67-year-old male patient of Dr. Lundy. He has a past medical history of hyperlipidemia, hypertension, GALLO, obesity, and cervical radiculopathy. He presents to the office today for a follow up. Of note, patient was seen approximately 3 months ago as a new patient for urinary dribbling and longstanding history of nephrolithiasis at which time a retroperitoneal ultrasound was ordered for further assessment evaluation. These results reviewed with the patient today. There is a 5.0 x 5.3 x 4.4 cm hypoechoic mass superior to the right kidney, difficult to characterize due to limited visualization, possibly related to the right adrenal gland versus an exophytic right renal mass. No hydronephrosis. No renal calculi. Limited visualization. Left kidney with upper pole 4.3 x 2.8 x 3.7 cm Bosniak 1 cyst. There is no indication for follow up imaging. Midpole: 0.3 cm and 0.2 cm echogenic foci are characteristic of renal calculi. No hydronephrosis. The bladder is partially distended, limiting evaluation. Bilateral ureteral jets are demonstrated. Prevoid bladder volume is approximately 200 mL. Postvoid bladder volume is approximately 10 mL. Enlarged prostate with a volume of approximately 45 mL. Patient with previous CT in November showing there is a 3.5 cm simple fluid attenuating cortical cyst in the upper left kidney, for which no imaging follow-up is recommended. However besides stones being noted within the right kidney no mass and or cyst noted in November imaging. Discussed ultrasound results compared to CT findings at length. Discussed further work up for assessment and evaluation. Patient agreeable. Discussed at length enlarged prostate noted on ultrasound as well as PSA 04/20--2.7. Discussed continuation of surveillance monitoring verses trial from master I would given lower urinary tract symptoms. He otherwise currently denies urinary urgency, urinary frequency, incontinence, hematuria, dysuria, foul smelling urine,flank pain, fever, and or chills. He does report urinary dribbling, nocturia, and changes to urinary stream. In office urinalysis results reviewed with the patient today. PVR 38 mL. Discussed at length importance of drinking adequate amount of fluid daily. Discussed pelvic floor exercises for urinary dribbling. Discussed limiting fluids 3-4 hours prior to bed to assist with decreasing episodes of nocturia. Patient otherwise denies any other issues or concerns at this time. 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 Review of Systems Const Reports as per HPI Eyes Reports no additional complaints ENT Reports no additional complaints Card Reports as per HPI Resp Reports as per HPI GI Reports no additional complaints Reports as per HPI Musc Reports no additional complaints Neuro Reports no additional complaints Psych Reports no additional complaints Endo Reports no additional complaints Ezekiel/Lymph Reports no additional complaints Aller/Immun Reports no additional complaints Physical Exam Const General: cooperative, healthy appearing, comfortable, no acute distress, well developed, alert and awake Orientation/consciousness: patient oriented x3 Limitations: no limitations HEENT Head: Yes normal to inspection, Yes normocephalic and Yes atraumatic Ears: hearing grossly normal bilaterally Eyes General: appearance normal, both eyes and all related structures Neck Neck: Yes normal visual inspection and Yes trachea midline Chest Chest palpation & inspection: normal inspection of the chest Resp Effort & Inspection: normal respiratory effort and able to speak in complete sentences Cardio Rate: regular rate GI Inspection: Yes normal to inspection General: Yes no CVA tenderness Back/Spine/Pelvis Back: no CVA tenderness Skin General skin exam: no rashes or lesions noted Neuro General: patient oriented x3 Extrem General: Yes normal to inspection Psych Appearance: grossly normal and well kempt Mental Status: mental status grossly normal Speech and movement: Normal speech and movement present and Clear speech present Affect: normal affect Attitude: cooperative Thought process: Normal thought process present Thought content: Normal thought content present Insight: Good insight present (Psych) Judgement: Good judgement present (Psych) Office Procedures Post Void Residual Post Residual Void Post Void Residual (PVR): 38 [id number] Void Residual by ultrasound Results AMB Urinalysis, Automated UA Leukoctes 0 Vesna/uL Last Edit by [employer] on 04/22/23 08:59 UA Nitrite Last Edit by [employer] on 04/22/23 08:59 UA Urobilinogen 0.2 mg/dL Last Edit by [employer] on 04/22/23 08:59 UA Protein 15 mg/dL Last Edit by [employer] on 04/22/23 08:59 UA pH 6.0 Last Edit by [employer] on 04/22/23 08:59 UA Blood 0 Ray/uL Last Edit by [employer] on 04/22/23 08:59 UA Specific [place] 1.025 Last Edit by [employer] on 04/22/23 08:59 UA Ketone Negative Last Edit by [employer] on 04/22/23 08:59 UA Bilirubin 0 mg/dL Last Edit by [employer] on 04/22/23 08:59 UA Glucose 0 mg/dL Last Edit by [employer] on 04/22/23 08:59 Results Reviewed Results Reviewed: Laboratory Last Values Urine pH (Auto) 6.0 04/22/23 08:45 Specific [place] (Auto) 1.025 04/22/23 08:45 Urine Protein (Auto) 15 mg/dL 04/22/23 08:45 Glucose (UA)(Auto) 0 mg/dL 04/22/23 08:45 Urine Ketones (Auto) Negative 04/22/23 08:45 Urine Blood (Auto) 0 Ray/uL 04/22/23 08:45 Urine Bilirubin (Auto) 0 mg/dL 04/22/23 08:45 Urine Urobilinogen (Auto) 0.2 mg/dL 04/22/23 08:45 Leukocyte Esterase (Auto) 0 Vesna/uL 04/22/23 08:45 Date of Service: 04/15/23 Procedure(s): US retroperitoneal comp FINDINGS: RIGHT KIDNEY: 11.4 x 5.5 x 6.3 cm (SAG x AP x TRV). There is a 5.0 x 5.3 x 4.4 cm hypoechoic mass superior to the right kidney, difficult to characterize due to limited visualization, possibly related to the right adrenal gland versus an exophytic right renal mass. No hydronephrosis. No renal calculi. Limited visualization. LEFT KIDNEY: 12.6 x 4.8 x 4.1 cm (SAG x AP x TRV). Upper pole 4.3 x 2.8 x 3.7 cm Bosniak 1 cyst. There is no indication for follow up imaging. Limited visualization. Midpole: 0.3 cm and 0.2 cm echogenic foci are characteristic of renal calculi. No hydronephrosis. BLADDER: Partially distended, limiting evaluation. Bilateral ureteral jets are demonstrated. Prevoid bladder volume is 191 mL. Postvoid bladder volume is 8.6 mL. Enlarged prostate, volume 46.8 mL, indents the floor of the bladder. IMPRESSION: 1. A 5.3 cm hypoechoic mass superior to the right kidney, difficult to characterize due to limited visualization, possibly related to the right adrenal gland versus an exophytic right renal mass. ? 2. Midpole 0.3 cm and 0.2 cm echogenic left renal calculi. No hydronephrosis. ? 3. Enlarged prostate, volume 46.8 mL, indents the floor of the bladder. 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 PVR 38 mL. Recent PSA results reviewed with the patient today; as noted above Recent retroperitoneal ultrasound results reviewed with the patient today; as noted above Previous CT results reviewed with the patient today; as noted above. Will obtain MRI renal mass protocol further assessment evaluation. Discussed, educated, and encouraged to continue drinking adequate amount of fluid daily. Discussed adding 1 oz of lemon juice to water daily. Discussed near future in office cystoscopy if symptoms persist and/or worsen. Start finasteride as discussed and prescribed. Follow-up in 1 month with imaging to be completed prior or sooner with any questions, concerns, and or issues. Orders: Orders MR abdomen wo/w con 04/22/23 N28.89 - Other specified disorders of kidney and ureter AMB Urinalysis Automated 04/22/23 N20.0 - Calculus of kidney, Z13.9 - Encounter for screening, unspecified AMB Post Void Residual by ultrasound 04/22/23 N39.43 - Post-void dribbling Medications: New finasteride 5 mg PO DAILY 90 days 90 tabs 3RF N40.0 - Benign prostatic hyperplasia without lower urinary tract symptoms Patient Instructions: The patient had an opportunity to ask questions regarding the treatment plan. All questions were answered. Physical exam, labs, and imaging were discussed and reviewed in detail. As well as risks, benefits, and discussion of treatment choices. No major barriers to understanding were identified. The patient expressed understanding and agreement with the above treatment plan. The patient was made aware they should contact our office by phone for worsening of their current condition, the appearance of new symptoms, or with any questions or concerns. Compliance is encouraged with any medications and follow up testing that is ordered. It is a privilege to be allowed the opportunity to participate in? your urological care.? Again, if you have any questions or concerns If you have any questions or concerns please do not hesitate to contact me. The office is [phone]. This note is constructed using voice recognition software. While every effort has been made to ensure accuracy research interviewer errors may have been included. Yours sincerely, Catarina Guevara, INVENTORY CONTROL CLERK-BC Coding Level of Care Code Est Pt Level 4 (42632) Diagnoses Renal mass N28.89 Angiolipoma D17.9 Recurrent nephrolithiasis N20.0 Urinary dribbling N39.43 Weak urinary stream R39.12 CPT Codes Post Residual Void - PVR CPT Code: 84297-Qtta Void Residual by ultrasound ([id number])
== END 2023-04-22 09:23 | disposition home or self-care (01) ==
PROVIDERS: PCP General Practice; Visit Provider Nurse Practitioner Family
DX: Z13.9 Encounter for screening, unspecified (principal); N20.0 Calculus of kidney
CPT/HCPCS: 99214

== ENCOUNTER → 2023-04-22 08:23 | Outpatient (BNVA) | payer OTHER, SELFPAY | PROVIDERS: Visit Provider Nurse Practitioner Family | DX: N28.89 Other specified disorders of kidney and ureter (principal); N20.0 Calculus of kidney; N39.43 Post-void dribbling; R39.12 Poor urinary stream; D17.9 Benign lipomatous neoplasm, unspecified | CPT/HCPCS: 51798; 81003; 99212 ==

== ENCOUNTER 2023-05-09 01:27 | Emergency (ER) | payer OTHER, SELFPAY ==
--- NOTE | ~2023-05-09 | XR_ITS ---
EXAMINATION: XR CHEST CLINICAL INFORMATION: Pain COMPARISON: 01/10/2023 TECHNIQUE: Frontal view of the chest was obtained. FINDINGS: The cardiomediastinal silhouette is normal. There is no focal lung consolidation or pleural effusion. The bony structures and soft tissues are unremarkable. XR/XR chest 1V IMPRESSION: No active cardiopulmonary disease.
--- NOTE | ~2023-05-09 | CT_ITS ---
EXAMINATION: CT ABDOMEN AND PELVIS WITHOUT CONTRAST CLINICAL INFORMATION: Abdominal pain. COMPARISON: None available. TECHNIQUE: Multidetector volumetric imaging was performed from the superior aspect of the liver through the pubic symphysis. Sagittal and coronal reformatted images were obtained on the technologist's workstation. This CT examination was performed using dose optimization techniques as appropriate, variously including the following: *Automated exposure control *Adjustment of mA and/or kV according to patient size (this includes techniques or standardized protocols for targeted exams where dose is matched to indication/reason for exam; i.e. extremities or head) *Use of iterative reconstruction technique DLP: 845 mGy-cm FINDINGS: LUNG BASES: The visualized lung bases are unremarkable. LIVER, GALLBLADDER, AND BILIARY TREE: The liver is of diminished attenuation. No focal liver lesions are seen. There is no intrahepatic biliary duct dilatation has been a prior cholecystectomy. PANCREAS: Unremarkable. SPLEEN: Unremarkable. ADRENAL GLANDS: Unremarkable. KIDNEYS AND URETERS: The kidneys are normal in size and position. There is a 4 cm cyst upper pole left kidney. There is a nonobstructing calculus within the right renal pelvis measuring 6 mm. There is also a 1 to 2 mm right midpole calculus. There is no hydronephrosis. BLADDER: Unremarkable. GASTROINTESTINAL TRACT: The small and large bowel are unremarkable. The appendix is unremarkable. ABDOMINAL WALL: No significant hernia is appreciated. LYMPH NODES: Normal. VASCULAR: Unremarkable. PELVIC VISCERA: Unremarkable. OSSEOUS STRUCTURES: There is diffuse thoracolumbar disc degenerative change. CT/CT abdomen pelvis wo IV con IMPRESSION: No left renal calculi or hydronephrosis. Nonobstructing right renal calculi. Fatty infiltration of the liver. Fleischner guidelines were followed.
--- NOTE | 2023-05-09 01:28 | ECG_ITS ---
Test Reason : CHEST PAIN Blood Pressure : / mmHG Vent. Rate : 068 BPM Atrial Rate : 068 BPM P-R Int : 162 ms QRS Dur : 140 ms QT Int : 386 ms P-R-T Axes : 054 -39 008 degrees QTc Int : 410 ms Normal sinus rhythm Left axis deviation Right bundle branch block Minimal voltage criteria for LVH, may be normal variant ( R in aVL ) Abnormal ECG When compared with ECG of 16-NOV-2018 10:58, No significant change was found Referred By: Generic ED Physician Electronically Signed By:MAMI CRUZ
[2023-05-09 01:36] VITALS: BP 132/75; PULSE 72; RESP 18; TEMP 36.7; O2SAT 97; BMI 33.0
[2023-05-09 02:02] LABS: MANUAL DIFF FLAG NO
[2023-05-09 02:04] LABS: Basophils Percent Auto 0.5 % (0-2); Eosinophils Absolute Auto 0.1 X10*3/uL (0.0-0.4); Eosinophils Percent Auto 1.5 % (0-4); Hematocrit 40.1 % (42.0-52.0); Imm Gran Abs Auto 0.03 X10*3/uL (0.00-0.03); Imm Gran Pct Auto 0.5 % (0.0-0.4); Lymphocytes Absolute Auto 1.8 X10*3/uL (1.2-4.9); Lymphocytes Percent Auto 29.5 % (20-40); Mean Corpuscular HGB Conc 34.9 g/dl (31.0-36.0); Mean Corpuscular Hemoglobin 32.6 pg (27.0-33.0); Mean Corpuscular Volume 93.3 fL (80.0-98.0); Mean Platelet Volume 10.8 fL (9.4-12.4); Monocytes Absolute Auto 0.7 X10*3/uL (0.1-1.2); Monocytes Percent Auto 11.5 % (2-11); Neutrophils Absolute Auto 3.4 x10*3/uL (2.0-8.3); Neutrophils Percent Auto 56.5 % (45-73); Platelet Count 186 X10*3/uL (160-400); Red Cell Distribution Width 12.9 % (11.0-16.0)
[2023-05-09 02:05] LABS: Appearance Urine Clear; Color Urine Yellow; Glucose Urine UA Negative (Negative); Leukocyte Esterase Urine Negative (Negative); Nitrite Urine Negative (Negative); PH 5.5 (5.0-9.0); Urine Blood Negative (Negative); Urine Ketones Negative (Negative); Urine Protein Negative (Neg-Trace)
[2023-05-09 02:10] LABS: Bacteria Urine None Seen (None Seen); RBC Urine 0-2 /HPF (0-2); Squamous Epithelial Cell Urine 0-2 /HPF (0-2); WBC Urine 0-5 /HPF (0-5)
[2023-05-09 02:32] VITALS: BP 113/82; PULSE 66; RESP 21; TEMP 36.8; O2SAT 96
[2023-05-09 02:35] LABS: Alanine Aminotransferase 33 U/L (0-40); Albumin Level 4.3 g/dL (3.5-5.0); Alkaline Phosphatase 57 U/L (39-117); Anion Gap 14 (12-20); Aspartate Amino Transferase 24 U/L (5-37); Bilirubin Total 0.5 mg/dL (0.0-1.0); Blood Urea Nitrogen 27 mg/dL (9-16); Calcium 10.5 mg/dL (8.4-10.2); Carbon Dioxide 25 mmol/L (22-29); Chloride 105 mmol/L (96-108); Creatinine Clr Calc Pharmacy 51.1; Estimated Glomerular Filt Rate 44; Glucose Random 107 mg/dL (60-115); Potassium 4.2 mmol/L (3.3-5.1); Sodium 140 mmol/L (135-145); Total Protein 7.1 g/dL (6.5-8.0); Troponin-I High Sensitivity < 2.7 ng/L (<3.5-35.0)
--- NOTE | 2023-05-09 02:35 | PC.NURSE ---
patient brought back from waiting room, changed into gown and placed on monitor. pt normal sinus rhythm, offers no complaints except for left flank pain x1 day. Reports increased frequency of urination but no burning or pain with urination
--- NOTE | 2023-05-09 03:11 | ED.GENADULT ---
HPI - General Adult General Chief complaint: Abdominal Pain Stated complaint: Chest Pain Time Seen by Provider: 05/09/23 03:08 Source: patient Mode of arrival: ambulatory Limitations: no limitations History of Present Illness HPI narrative: Patient with history of kidney stone woke up from sleep with sharp left flank pain no nausea no vomiting no hematuria no rash, pain increases on deep breath now feels better no chest pain or shortness of breath no fever or chills no urine complaints Related Data Home Medications Medication Instructions Recorded Confirmed acetaminophen 650 mg 650 mg PO Q8H PRN 12/23/21 04/22/23 tablet,extended release (Mapap Arthritis Pain) fluticasone propionate 50 spray intranasal 12/23/21 04/22/23 mcg/actuation nasal spray,suspension ergocalciferol (vitamin D2) 1,250 1,250 mcg PO QWEEK 06/29/22 04/22/23 mcg (50,000 unit) capsule lisinopril 10 1 tab PO DAILY 06/29/22 04/22/23 mg-hydrochlorothiazide 12.5 mg tablet ketorolac 0.5 % eye drops 1 drp ophthalmic (eye) TID 11/02/22 04/22/23 tamsulosin 0.4 mg capsule 0.4 mg PO QAM 04/22/23 04/22/23 Previous Rx's Medication Instructions Recorded pyridoxine (vitamin B6) 100 mg 100 mg PO DAILY 90 days #90 tabs 01/12/23 tablet finasteride 5 mg tablet 5 mg PO DAILY 90 days #90 tabs 04/22/23 Allergies Allergy/AdvReac Type Severity Reaction Status Date / Time No Known Allergies Allergy Verified 04/22/23 09:10 Review of Systems Review of Systems: Yes all other systems are reviewed and are negative [facility] Past Medical History Medical History Hyperlipidemia HTN (hypertension) Obesity Surgical History Hx of cataract surgery Hx of hernia repair Hx of cholecystectomy Hx of tonsillectomy Hx of carpal tunnel repair Family History Family History Sister Diabetes Son GALLO (obstructive sleep apnea) Social History Social History Alcohol intake: never Patient Tobacco Use Status: Never used Tobacco Smoked in Last 30 Days: No Use of substances other than those prescribed or required for medical reasons: No Advance Directives: No Advance Directives Information Provided: Yes Current occupational status: employed 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 Oriented X3. No acute distress. ENT: Pharynx normal. Oral Mucosa moist Neck: Normal inspection. Neck supple. CVS: Normal heart rate and rhythm. Pulses normal. Respiratory: No respiratory distress. Equal air entry bilateral, no wheezing/rales/rhonchi Abdomen: Soft and nontender. Bowel sounds are present, no mass palpable, mild L CVA tenderness Skin: Skin warm and dry. Normal skin color. Normal skin turgor. Extremities: No lower extremity edema. No calf tenderness Neuro: Oriented X 3. Medical Decision Making Medical Decision Making [facility] Narrative: Patient with acute onset of left flank pain etiology not clear CT scan negative for any kidney stone urine also negative labs are stable high sensitive troponin negative , will do chest x-ray just to rule out pneumonitis/pneumothorax/pneumonia along with do the D-dimer to rule PE Chest x-ray negative D-dimer negative patient feeling much better discharge patient home likely muscular pain Differential Diagnosis Differential Diagnoses: The differential diagnosis associated with the presentation includes Kidney stone/UTI/PE/pneumonia/pneumothorax Lab Data [facility] Lab Attestation statement: I reviewed the patient's lab results. 05/09/23 01:55 05/09/23 01:55 Labs: Lab Results 05/09/23 05/09/23 05/09/23 Range/Units 01:55 01:57 05:44 WBC 6.0 (4.8-10.8) X10*3/uL RBC 4.30 L (4.60-5.80) X10*6/uL Hgb 14.0 (14.0-18.0) g/dl Hct 40.1 L (42.0-52.0) % MCV 93.3 (80.0-98.0) fL MCH 32.6 (27.0-33.0) pg MCHC 34.9 (31.0-36.0) g/dl RDW 12.9 (11.0-16.0) % Plt Count 186 (160-400) X10*3/uL MPV 10.8 (9.4-12.4) fL Immature Gran % (Auto) 0.5 H (0.0-0.4) % Neut % (Auto) 56.5 (45-73) % Lymph % (Auto) 29.5 (20-40) % [place] % (Auto) 11.5 H (2-11) % Eos % (Auto) 1.5 (0-4) % Baso % (Auto) 0.5 (0-2) % Lymph # (Auto) 1.8 (1.2-4.9) X10*3/uL [place] # (Auto) 0.7 (0.1-1.2) X10*3/uL Eos # (Auto) 0.1 (0.0-0.4) X10*3/uL Baso # (Auto) 0.0 (0.0-0.2) X10*3/uL Abs Immat Gran (auto) 0.03 (0.00-0.03) X10*3/uL Absolute Neuts (auto) 3.4 (2.0-8.3) x10*3/uL Absolute Nucleated RBC 0.000 (0.0-0.012) X10*3/uL Nucleated RBC % (auto) 0.0 (0.0-0.2) /100WBC PT 10.8 L (11.1-13.3) SEC INR 0.9 (0.9-1.1) D-Dimer High Sensitivty < 150 NG/ML Sodium 140 (135-145) mmol/L Potassium 4.2 (3.3-5.1) mmol/L Chloride 105 (96-108) mmol/L Carbon Dioxide 25 (22-29) mmol/L Anion Gap 14 (12-20) BUN 27 H (9-16) mg/dL Creatinine 1.56 H (0.5-1.4) mg/dL Estim Creat Clear Calc 51.1 Estimated GFR 44 Random Glucose 107 (60-115) mg/dL Calcium 10.5 H D (8.4-10.2) mg/dL Total Bilirubin 0.5 (0.0-1.0) mg/dL AST 24 (5-37) U/L ALT 33 (0-40) U/L Alkaline Phosphatase 57 (39-117) U/L Troponin I High Sens < 2.7 (<3.5-35.0) ng/L Total Protein 7.1 (6.5-8.0) g/dL Albumin 4.3 (3.5-5.0) g/dL Urine Color Yellow Urine Appearance Clear Urine pH 5.5 (5.0-9.0) Ur Specific [place] 1.020 (1.005-1.025) Urine Protein Negative (Neg-Trace) mg/dL Urine Glucose (UA) Negative (Negative) mg/dL Urine Ketones Negative (Negative) mg/dL Urine Blood Negative (Negative) Urine Nitrite Negative (Negative) Ur Leukocyte Esterase Negative (Negative) Urine RBC 0-2 (0-2) /HPF Urine WBC 0-5 (0-5) /HPF Ur Squamous Epith Cells 0-2 (0-2) /HPF Urine Bacteria None Seen (None Seen) Hyaline Casts 3-5 (0-2) /LPF Discharge Plan Discharge Clinical Impression: Left flank pain Patient Disposition: Home, Self-Care Instructions: Flank Pain (ED) Additional Instructions: Cause of your left flank pain not clear possible muscular Take Tylenol/Motrin for pain Follow with PCP if not better or report to the ER Prescriptions: No Action ketorolac 0.5 % drops 1 drp ophthalmic (eye) TID fluticasone propionate 50 mcg/actuation spray,suspension intranasal acetaminophen [Mapap Arthritis Pain] 650 mg tablet extended release 650 mg PO Q8H PRN lisinopril-hydrochlorothiazide 10-12.5 mg tablet 1 tab PO DAILY ergocalciferol (vitamin D2) 1,250 mcg (50,000 unit) capsule 1,250 mcg PO QWEEK tamsulosin 0.4 mg capsule 0.4 mg PO QAM finasteride 5 mg tablet 5 mg PO DAILY 90 Days Qty: 90 3RF pyridoxine (vitamin B6) 100 mg tablet 100 mg PO DAILY 90 Days Qty: 90 4RF
[2023-05-09 04:46] VITALS: BP 127/67; PULSE 71; RESP 14; O2SAT 97
[2023-05-09 05:46] VITALS: BP 119/75; PULSE 67; RESP 19; O2SAT 96
[2023-05-09 05:56] LABS: INTERNATIONAL NORM RATIO 0.9 (0.9-1.1); Prothrombin Time 10.8 SEC (11.1-13.3)
[2023-05-09 06:02] LABS: D Dimer High Sensitivity < 150 NG/ML
== END 2023-05-09 06:31 | disposition home or self-care (01) ==
PROVIDERS: Emergency Provider Internal Medicine
DX: R10.30 Lower abdominal pain, unspecified (principal); R07.89 Other chest pain; Z79.899 Other long term (current) drug therapy
CPT/HCPCS: 36415; 71045; 74176; 80053; 81001; 84484; 85025; 85379; 85610; 93005; 99284; 99285

== ENCOUNTER → 2023-05-24 13:57 | Outpatient (BNVA) | payer OTHER, SELFPAY | PROVIDERS: PCP General Practice; Visit Provider Nurse Practitioner Family ==

== ENCOUNTER 2023-05-26 15:19 | Outpatient (AMB) | payer OTHER, SELFPAY ==
--- NOTE | 2023-05-26 15:39 | A.OFFVIS_ITS ---
Intake Intake Visit Reasons: follow up MRI(set) Intake Note: Patient presents for follow up MRI results/nephrolithiasis Urology Medications: Vitamin B6, finasteride Blood Thinner: none Fish Receiver Required: No Accompanied by: Self / Same As Patient Allergies No Known Allergies Allergy (Verified 05/26/23 15:59) Medication List - Last Reconciled 05/26/23 by WEI Rg acetaminophen ER (Mapap Arthritis Pain) 650 mg PO Q8H PRN ergocalciferol (vitamin D2) 1,250 mcg PO QWEEK finasteride 5 mg PO DAILY 90 days fluticasone propionate 50 mcg/actuation sprays intranasal ketorolac 0.5% 1 drp ophthalmic (eye) TID lisinopril-hydrochlorothiazide 10-12.5 mg 1 tab PO DAILY pyridoxine (vitamin B6) 100 mg PO DAILY 90 days HPI HPI Comments History of Present Illness Details Palomo is a pleasant 68-year-old male patient of Dr. Lundy. He has a past medical history of hyperlipidemia, hypertension, GALLO, obesity, and cervical radiculopathy. He presents to the office today for a follow up. Of note, patient was seen approximately 1 month ago at which time an MRI was ordered for further assessment evaluation of question right renal mass noted on retroperitoneal ultrasound verses findings on previous CT scan. MRI results reviewed with the patient today. Kidneys with no hydronephrosis. Bilateral duplex morphology with somewhat lobulated renal contour. Few bilateral simple cysts, largest measuring 3.6 cm upper pole left kidney. No suspicious mass. Specifically no suspicious lesions in region of right upper pole. In office urinalysis results reviewed with the patient today. He otherwise offers no issues or concerns at this time. When asked he reports compliance with 5 mg of finasteride daily. He denies any bothersome urinary issues. He reports to be happy with current voiding parameters. He does discuss having pain in his lower back radiating to his left leg. He discusses having a follow-up on 05/30 with his PCP at which time he will discuss further recommendations. He otherwise offers no other issues or concerns at this time. 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 Review of Systems Const Reports as per HPI Eyes Reports no additional complaints ENT Reports no additional complaints Card Reports as per HPI Resp Reports as per HPI GI Reports no additional complaints Reports as per HPI Musc Reports no additional complaints Neuro Reports no additional complaints Psych Reports no additional complaints Endo Reports no additional complaints Ezekiel/Lymph Reports no additional complaints Aller/Immun Reports no additional complaints Physical Exam Const General: cooperative, healthy appearing, comfortable, no acute distress, well developed, alert and awake Orientation/consciousness: patient oriented x3 Limitations: no limitations HEENT Head: Yes normal to inspection, Yes normocephalic and Yes atraumatic Ears: hearing grossly normal bilaterally Eyes General: appearance normal, both eyes and all related structures Neck Neck: Yes normal visual inspection and Yes trachea midline Chest Chest palpation & inspection: normal inspection of the chest Resp Effort & Inspection: normal respiratory effort and able to speak in complete sentences Cardio Rate: regular rate GI Inspection: Yes normal to inspection General: Yes no CVA tenderness Back/Spine/Pelvis Back: no CVA tenderness Skin General skin exam: no rashes or lesions noted Neuro General: patient oriented x3 Extrem General: Yes normal to inspection Psych Appearance: grossly normal and well kempt Mental Status: mental status grossly normal Speech and movement: Normal speech and movement present and Clear speech present Affect: normal affect Attitude: cooperative Thought process: Normal thought process present Thought content: Normal thought content present Insight: Good insight present (Psych) Judgement: Good judgement present (Psych) Results AMB Urinalysis, Automated UA Leukoctes 0 Vesna/uL Last Edit by Paola Vicente on 05/26/23 15:59 UA Nitrite Last Edit by [email or web address] Vicente on 05/26/23 15:59 UA Urobilinogen 0.2 mg/dL Last Edit by Brandgibson Vicente on 05/26/23 15:59 UA Protein 0 mg/dL Last Edit by Paola Vicente on 05/26/23 15:59 UA pH 6.0 Last Edit by Paola Vicente on 05/26/23 15:59 UA Blood 0 Ray/uL Last Edit by Paola Vicente on 05/26/23 15:59 UA Specific [place] 1.025 Last Edit by Paola Vicente on 05/26/23 15:59 UA Ketone Last Edit by Paola Vicente on 05/26/23 15:59 UA Bilirubin 0 mg/dL Last Edit by Paola Vicente on 05/26/23 15:59 UA Glucose 0 mg/dL Last Edit by Paola Vicente on 05/26/23 15:59 Results Reviewed Results Reviewed: Laboratory Last Values Urine pH (Auto) 6.0 05/26/23 15:40 Specific [place] (Auto) 1.025 05/26/23 15:40 Urine Protein (Auto) 0 mg/dL 05/26/23 15:40 Glucose (UA)(Auto) 0 mg/dL 05/26/23 15:40 Urine Blood (Auto) 0 Ray/uL 05/26/23 15:40 Urine Bilirubin (Auto) 0 mg/dL 05/26/23 15:40 Urine Urobilinogen (Auto) 0.2 mg/dL 05/26/23 15:40 Leukocyte Esterase (Auto) 0 Vesna/uL 05/26/23 15:40 Assessment & Plan Assessment & Plan (1) Renal cyst: Code(s): N28.1 - Cyst of kidney, acquired (2) Recurrent nephrolithiasis: Code(s): N20.0 - Calculus of kidney Plan In office urinalysis results reviewed with the patient today; as noted above. Recent MRI imaging results reviewed with the patient today; as noted above. Patient denies any bothersome urinary issues at this time. Will obtain PSA in 1 year. Will obtain renal ultrasound in 1 year. Continue finasteride 5 mg daily and vitamin B6 as discussed and prescribed Educated, encouraged, instructed on the importance of drinking plenty of water daily. Follow-up in 1 year with imaging and labs to be completed prior; or sooner with any issues, concerns, and or questions. Orders: Orders US renal BI 364 Days D17.9 - Benign lipomatous neoplasm, unspecified Prostate Specific Antigen 364 Days N39.43 - Post-void dribbling, R39.12 - Poor urinary stream AMB Urinalysis Automated Today Z13.9 - Encounter for screening, unspecified Patient Instructions: The patient had an opportunity to ask questions regarding the treatment plan. All questions were answered. Physical exam, labs, and imaging were discussed and reviewed in detail. As well as risks, benefits, and discussion of treatment choices. No major barriers to understanding were identified. The patient expressed understanding and agreement with the above treatment plan. The patient was made aware they should contact our office by phone for worsening of their current condition, the appearance of new symptoms, or with any questions or concerns. Compliance is encouraged with any medications and follow up testing that is ordered. It is a privilege to be allowed the opportunity to participate in? your urological care.? Again, if you have any questions or concerns If you have any questions or concerns please do not hesitate to contact me. The office is [phone]. This note is constructed using voice recognition software. While every effort has been made to ensure accuracy digital imaging specialist errors may have been included. Yours sincerely, WEI Rg Coding Level of Care Code Est Pt Level 3 (39417) Diagnoses Renal cyst N28.1 Recurrent nephrolithiasis N20.0
== END 2023-05-26 16:12 | disposition home or self-care (01) ==
PROVIDERS: PCP General Practice; Visit Provider Nurse Practitioner Family
DX: N28.1 Cyst of kidney, acquired (principal); N20.0 Calculus of kidney; Z13.9 Encounter for screening, unspecified
CPT/HCPCS: 99213

== ENCOUNTER → 2023-05-26 15:19 | Outpatient (BNVA) | payer OTHER, SELFPAY | PROVIDERS: PCP General Practice; Visit Provider Nurse Practitioner Family | DX: N28.1 Cyst of kidney, acquired (principal); N20.0 Calculus of kidney | CPT/HCPCS: 81003; 99212 ==

== ENCOUNTER 2024-03-25 18:40 | Emergency (ER) | payer OTHER, SELFPAY ==
--- NOTE | ~2024-03-25 | CT_ITS ---
EXAMINATION: CT HEAD WITHOUT CONTRAST CLINICAL INFORMATION: Left arm numbness and tingling of greater than 24 hours' duration. COMPARISON: None available. TECHNIQUE: Contiguous axial imaging was performed from the skull base to vertex without intravenous administration of contrast. This CT examination was performed using dose optimization techniques as appropriate, variously including the following: *Automated exposure control *Adjustment of mA and/or kV according to patient size (this includes techniques or standardized protocols for targeted exams where dose is matched to indication/reason for exam; i.e. extremities or head) *Use of iterative reconstruction technique DLP: 708 mGy-cm FINDINGS: There is no acute intracranial hemorrhage or evidence of territorial infarction. No abnormal mass effect or midline shift is seen. Hull to white matter differentiation is well preserved. There is no abnormal attenuation within the brain parenchyma. The ventricles are normal in size. No extra-axial fluid collections are identified. The calvarium and scalp soft tissues are normal. The middle ear cavity and mastoid air cells are clear. The visualized paranasal sinuses are clear. CT/CT head/brain wo IV con IMPRESSION: No acute intracranial pathology.
[2024-03-25 18:52] VITALS: BP 155/91; PULSE 94; RESP 18; TEMP 36.4; O2SAT 96; BMI 33.2
--- NOTE | 2024-03-25 19:02 | ECG_ITS ---
Test Reason : L ARM PAIN Blood Pressure : / mmHG Vent. Rate : 074 BPM Atrial Rate : 074 BPM P-R Int : 166 ms QRS Dur : 140 ms QT Int : 386 ms P-R-T Axes : 044 -44 013 degrees QTc Int : 428 ms Sinus rhythm with Premature supraventricular complexes Left axis deviation Right bundle branch block Minimal voltage criteria for LVH, may be normal variant ( R in aVL ) Abnormal ECG When compared with ECG of 09-MAY-2023 01:31, Premature supraventricular complexes are now Present Referred By: Brea Hubbard Electronically Signed By:Kaushal Cervantes
--- NOTE | 2024-03-25 19:03 | ED_ITS ---
HPI - Extremity Problem General Chief complaint: Extremity Injury, Upper Stated complaint: LT arm pain, tingling sensation LT hand Time Seen by Provider: 03/25/24 18:53 Source: patient and family Mode of arrival: ambulatory Limitations: no limitations History of Present Illness ED Provider: Dr. Brea Hubbard HPI Narrative: Patient comes to the emergency room complaining of 24+ hours of left arm numbness and tingling. Patient states he has a shooting like pain radiating from the spine down to the left hand. Patient states that he has no motor strength disability on his left hand. He has chronic right-sided hand weakness which has already been addressed by neurology. Patient denies any other neurological symptoms. Patient is concerned about the pain in his left arm because he can not do anything useful with his right arm and the left arm is his only ?good arm . Patient denies any chest pain or shortness of breath, no motor strength in lower extremities, no facial droop, numbness tingling in face. Denies any recent URI or UTI symptoms Related Data Home Medications ?Medication ?Instructions ?Recorded ?Confirmed acetaminophen 650 mg 650 mg PO Q8H PRN 12/23/21 04/22/23 tablet,extended release (Mapap Arthritis Pain) fluticasone propionate 50 spray intranasal 12/23/21 04/22/23 mcg/actuation nasal spray,suspension ergocalciferol (vitamin D2) 1,250 1,250 mcg PO QWEEK 06/29/22 04/22/23 mcg (50,000 unit) capsule lisinopril 10 1 tab PO DAILY 06/29/22 04/22/23 mg-hydrochlorothiazide 12.5 mg tablet ketorolac 0.5 % eye drops 1 drp ophthalmic (eye) TID 11/02/22 04/22/23 Previous Rx's ?Medication ?Instructions ?Recorded pyridoxine (vitamin B6) 100 mg 100 mg PO DAILY 90 days #90 tabs 01/12/23 tablet finasteride 5 mg tablet 5 mg PO DAILY 90 days #90 tabs 04/22/23 gabapentin 100 mg capsule 100 mg PO TID #90 caps 03/25/24 Allergies Allergy/AdvReac Type Severity Reaction Status Date / Time No Known Allergies Allergy Verified 03/25/24 18:54 [facility] Past Medical History Medical History Hyperlipidemia HTN (hypertension) Obesity Surgical History Hx of cataract surgery Hx of hernia repair Hx of cholecystectomy Hx of tonsillectomy Hx of carpal tunnel repair Family History Family History Sister Diabetes Son GALLO (obstructive sleep apnea) Social History Social History Alcohol intake: never Patient Tobacco Use Status: Never used Tobacco Smoked in Last 30 Days: No Use of substances other than those prescribed or required for medical reasons: No Advance Directives: No Advance Directives Information Provided: No Current occupational status: employed 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 Oriented X3. No acute distress. Eyes: Pupils equal, round and reactive to light. ENT: Pharynx normal. Neck: Normal inspection. Neck supple. No lymph nodes noted. No crepitus CVS: Normal heart rate and rhythm. Pulses normal. Normal S1 and S2 Respiratory: No respiratory distress. Breath sounds normal. No Wheezing. No rales Abdomen: Soft and nontender. No rigidity. No distention. Skin: Skin warm and dry. Normal skin color. Normal skin turgor. Extremities: No lower extremity edema. No Lacerations. No Rash Neuro: Oriented X 3. Moving all extremities, decreased strength on the right arm chronically with tremor. Left arm has normal range of motion and strength. Psych: calm, cooperative, normal affect Course Course Course Narrative: Patient's labs, EKG and CT scan pending Medical Decision Making Medical Decision Making MDM Narrative: -I reviewed patient's medical records, patient has been seen by Neurology in the past, patient has been diagnosed with cervicalgia: Patient has retrolisthesis of C6 on 02/0207. Grade 1 anterolisthesis of 7 1 on T1. Minimal central protrusions from C2-C3 levels with moderate to severe right and moderate left neural foraminal narrowing. -Patient states that he has never had surgery in the cervical spine before. Per patient, he was not a candidate for Neurosurgery due to lack of symptoms. However, patient states that now his left arm is really becoming numb and tingly. -my interpretation of CT scan of the head: No intracranial bleed. -my interpretation of labs, normal hematology, chemistry at baseline -I discussed with the patient that the symptoms that he is feeling is likely secondary to cervical radiculopathy. -patient was provided with a prescription for gabapentin. However, I discussed with the patient that this will not cure him, overall he will likely need a combination of physical therapy and possibly surgery which can be determined by his neurologist/neurosurgeon Differential Diagnosis Differential Diagnoses: The differential diagnosis associated with the presentation includes (TIA, CVA, cervical radiculopathy) Admission/Observation Consideration of admission/observation: Escalation of care including admission/observation considered (Given patient's symptoms, observation was considered) Lab Data MDM Lab Attestation statement: I reviewed the patient's lab results. 03/25/24 19:18 03/25/24 19:18 Labs: Lab Results 03/25/24 Range/Units 19:18 WBC 5.6 (4.8-10.8) X10*3/uL RBC 4.26 L (4.60-5.80) X10*6/uL Hgb 14.1 (14.0-18.0) g/dl Hct 39.8 L (42.0-52.0) % MCV 93.4 (80.0-98.0) fL MCH 33.1 H (27.0-33.0) pg MCHC 35.4 (31.0-36.0) g/dl RDW 12.7 (11.0-16.0) % Plt Count 192 (160-400) X10*3/uL MPV 10.8 (9.4-12.4) fL Immature Gran % (Auto) 0.7 H (0.0-0.4) % Neut % (Auto) 63.9 (45-73) % Lymph % (Auto) 23.4 (20-40) % [place] % (Auto) 9.5 (2-11) % Eos % (Auto) 1.8 (0-4) % Baso % (Auto) 0.7 (0-2) % Lymph # (Auto) 1.3 (1.2-4.9) X10*3/uL [place] # (Auto) 0.5 (0.1-1.2) X10*3/uL Eos # (Auto) 0.1 (0.0-0.4) X10*3/uL Baso # (Auto) 0.0 (0.0-0.2) X10*3/uL Abs Immat Gran (auto) 0.04 H (0.00-0.03) X10*3/uL Absolute Neuts (auto) 3.5 (2.0-8.3) x10*3/uL Absolute Nucleated RBC 0.000 (0.0-0.012) X10*3/uL Nucleated RBC % (auto) 0.0 (0.0-0.2) /100WBC Sodium 140 (135-145) mmol/L Potassium 3.9 (3.3-5.1) mmol/L Chloride 108 (96-108) mmol/L Carbon Dioxide 21 L (22-29) mmol/L Anion Gap 15 (12-20) BUN 25 H (9-16) mg/dL Creatinine 1.48 H (0.5-1.4) mg/dL Estim Creat Clear Calc 53.0 Estimated GFR 47 Random Glucose 158 H (60-115) mg/dL Calcium 10.0 (8.4-10.2) mg/dL Total Bilirubin 0.5 (0.0-1.0) mg/dL Direct Bilirubin 0.1 (0.0-0.5) mg/dL AST 19 (5-37) U/L ALT 22 (0-40) U/L Alkaline Phosphatase 70 (39-117) U/L Troponin I High Sens 2.9 (<3.5-35.0) ng/L Total Protein 7.1 (6.5-8.0) g/dL Albumin 4.2 (3.5-5.0) g/dL Independent Interpretation I performed an independent interpretation of an: CT Scan Radiology Impression Discussion of test interpretation with radiology: I have reviewed the radiologist's reading. Radiologist Impression: There is no acute intracranial hemorrhage or evidence of territorial infarction. No abnormal mass effect or midline shift is seen. Hull to white matter differentiation is well preserved. There is no abnormal attenuation within the brain parenchyma. The ventricles are normal in size. No extra-axial fluid collections are identified. The calvarium and scalp soft tissues are normal. The middle ear cavity and mastoid air cells are clear. The visualized paranasal sinuses are clear. CT/CT head/brain wo IV con IMPRESSION: No acute intracranial pathology Critical Care Time Critical Care Time Critical Care Time: Yes Total Critical Care Time: 35 Attestation: I have personally provided critical care time. Time includes review of lab data, radiology results, discussion with consultants, and monitoring for potential decompensation. Intervention performed as documented. Discharge Plan Discharge Clinical Impression: Cervical radiculopathy, Arm paresthesia, left Patient Disposition: Home, Self-Care Instructions: Paresthesia (ED), Cervical Radiculopathy (ED) Additional Instructions: Please follow-up with your primary care physician tomorrow. If you have any worsening or new symptoms, please return to the emergency room or call 911 Prescriptions: New gabapentin 100 mg capsule 100 mg PO TID Qty: 90 0RF No Action ketorolac 0.5 % drops 1 drp ophthalmic (eye) TID fluticasone propionate 50 mcg/actuation spray,suspension intranasal acetaminophen [Mapap Arthritis Pain] 650 mg tablet extended release 650 mg PO Q8H PRN lisinopril-hydrochlorothiazide 10-12.5 mg tablet 1 tab PO DAILY ergocalciferol (vitamin D2) 1,250 mcg (50,000 unit) capsule 1,250 mcg PO QWEEK finasteride 5 mg tablet 5 mg PO DAILY 90 Days Qty: 90 3RF pyridoxine (vitamin B6) 100 mg tablet 100 mg PO DAILY 90 Days Qty: 90 4RF Print Language: Citizen Of [place]
--- NOTE | 2024-03-25 19:20 | PC.NURSE ---
this rn assumed care of pt, pt a&ox4, respirations even and unlabored. pt reporting onset of left shoulder pain that worsens with movement starting yesterday. pt reports the pain has been causing increasing headaches. pt neuros in tact. 20G placed in left ac, labs obtained and sent.
[2024-03-25 19:22] LABS: MANUAL DIFF FLAG NO
[2024-03-25 19:23] LABS: Basophils Percent Auto 0.7 % (0-2); Eosinophils Absolute Auto 0.1 X10*3/uL (0.0-0.4); Eosinophils Percent Auto 1.8 % (0-4); Hematocrit 39.8 % (42.0-52.0); Hemoglobin 14.1 g/dl (14.0-18.0); Imm Gran Abs Auto 0.04 X10*3/uL (0.00-0.03); Imm Gran Pct Auto 0.7 % (0.0-0.4); Lymphocytes Absolute Auto 1.3 X10*3/uL (1.2-4.9); Lymphocytes Percent Auto 23.4 % (20-40); Mean Corpuscular HGB Conc 35.4 g/dl (31.0-36.0); Mean Corpuscular Hemoglobin 33.1 pg (27.0-33.0); Mean Corpuscular Volume 93.4 fL (80.0-98.0); Mean Platelet Volume 10.8 fL (9.4-12.4); Monocytes Absolute Auto 0.5 X10*3/uL (0.1-1.2); Monocytes Percent Auto 9.5 % (2-11); Neutrophils Absolute Auto 3.5 x10*3/uL (2.0-8.3); Neutrophils Percent Auto 63.9 % (45-73); Platelet Count 192 X10*3/uL (160-400); Red Blood Count 4.26 X10*6/uL (4.60-5.80); Red Cell Distribution Width 12.7 % (11.0-16.0); White Blood Count 5.6 X10*3/uL (4.8-10.8)
[2024-03-25 19:58] LABS: Alanine Aminotransferase 22 U/L (0-40); Albumin Level 4.2 g/dL (3.5-5.0); Alkaline Phosphatase 70 U/L (39-117); Anion Gap 15 (12-20); Aspartate Amino Transferase 19 U/L (5-37); Bilirubin Direct 0.1 mg/dL (0.0-0.5); Bilirubin Total 0.5 mg/dL (0.0-1.0); Blood Urea Nitrogen 25 mg/dL (9-16); Carbon Dioxide 21 mmol/L (22-29); Chloride 108 mmol/L (96-108); Estimated Glomerular Filt Rate 47; Glucose Random 158 mg/dL (60-115); Potassium 3.9 mmol/L (3.3-5.1); Sodium 140 mmol/L (135-145); Total Protein 7.1 g/dL (6.5-8.0)
[2024-03-25 20:02] LABS: Troponin-I High Sensitivity 2.9 ng/L (<3.5-35.0)
[2024-03-25 21:23] VITALS: BP 145/79; PULSE 76; RESP 16; TEMP 36.7; O2SAT 96
[2024-03-25 21:24] VITALS: BP 145/79; PULSE 76; RESP 16; TEMP 36.7; O2SAT 96
== END 2024-03-25 21:27 | disposition home or self-care (01) ==
PROVIDERS: Emergency Provider Emergency Medicine; PCP General Practice
DX: M54.12 Radiculopathy, cervical region (principal); M54.50 Low back pain, unspecified; M79.602 Pain in left arm; R51.9 Headache, unspecified; I45.10 Unspecified right bundle-branch block; R20.2 Paresthesia of skin; R94.31 Abnormal electrocardiogram [ECG] [EKG]; Z79.899 Other long term (current) drug therapy
CPT/HCPCS: 36415; 70450; 80048; 80076; 84484; 85025; 93005; 99284; 99285

== ENCOUNTER → 2024-03-25 19:02 | Outpatient (BNV) | payer OTHER, SELFPAY | PROVIDERS: Emergency Provider Emergency Medicine; PCP General Practice; Visit Provider Internal Medicine Cardiovascular Disease | DX: R94.31 Abnormal electrocardiogram [ECG] [EKG] (principal); I45.10 Unspecified right bundle-branch block; I49.1 Atrial premature depolarization | CPT/HCPCS: 93010 ==

== ENCOUNTER 2024-03-30 14:09 | Outpatient (AMB) | payer OTHER, SELFPAY ==
--- NOTE | 2024-03-30 14:51 | A.SPINEOV_ITS ---
Intake Visit Reasons: Hand tremors Intake Note: Mr. Falcon is here today c/o hand tremors. 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 We previously saw him for a right hand tremor. A few weeks ago he started to develop severe pain going down his left arm into h is 4th and 5th digits. His whole palm feels like it is cramping in his severe and unrelenting discomfort. He was seen in the emergency room. He has been on gabapentin and [id number] medications like Tylenol. He underwent a brain CT just to make sure was not having a stroke and per report that was negative. On my exam today he is very uncomfortable holding his arm in a flexed position. He is uncomfortable even just squeezing my hand. His reflexes are intact. No Mohr's sign. I suspect he has got a cervical herniated disc or he has an acute radiculopathy secondary to the arthritis seen on his previous MRI a few years ago at [facility]. I am going to send him for a cervical MRI to evaluate. He would like to do this at [facility] because of the open MRI. Total amount of time spent in this visit was 20 minutes in discussion of symptoms, previous cervical imaging results and subsequent plan of care Sumit Jacob MD,PhD [facility] Orders: Orders MR cervical spine wo con Today M54.12 - Radiculopathy, cervical region Coding Level of Care Code Est Pt Level 3 (71398) Diagnoses Cervical radiculopathy M54.12
== END 2024-03-30 15:02 | disposition home or self-care (01) ==
PROVIDERS: PCP General Practice; Visit Provider Physician Assistant
DX: M54.12 Radiculopathy, cervical region (principal)
CPT/HCPCS: 99213

== ENCOUNTER → 2024-03-30 14:09 | Outpatient (BNVA) | payer OTHER, SELFPAY | PROVIDERS: PCP General Practice; Visit Provider Physician Assistant | DX: M54.12 Radiculopathy, cervical region (principal) | CPT/HCPCS: 99212 ==

== ENCOUNTER 2024-04-04 10:01 | Outpatient (AMB) | payer OTHER, SELFPAY ==
[2024-04-04 10:12] VITALS: BP 121/58; PULSE 72; BMI 33.8
--- NOTE | 2024-04-04 10:12 | A.OFFVIS_ITS ---
Vital Signs 04/04/24 10:12 Height 5 ft 8 in Weight 222 lb BMI 33.8 BP 121/58 L Blood Pressure Location Lt brachial Position Sitting Pulse 72 Intake Visit Reasons: Bleeding Hemhorroids Intake Note: This patient presents for Bleeding Hemorrhoids. Pt c/o; reports rectal bleeding after bowel movements when wiping, occasional constipation. 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 Accompanied by: Self / Same As Patient Allergies No Known Allergies Allergy (Verified 04/04/24 10:20) Medication List - Last Reconciled 04/04/24 by Ric Reed MD acetaminophen ER (Mapap Arthritis Pain) 650 mg PO Q8H PRN ergocalciferol (vitamin D2) 1,250 mcg PO QWEEK finasteride 5 mg PO DAILY 90 days fluticasone propionate 50 mcg/actuation sprays intranasal gabapentin 100 mg PO TID ketorolac 0.5% 1 drp ophthalmic (eye) TID lisinopril-hydrochlorothiazide 10-12.5 mg 1 tab PO DAILY pyridoxine (vitamin B6) 100 mg PO DAILY 90 days HPI HPI Bleeding Hemhorroids: Details: 68-year-old male referred for bleeding hemorrhoids. He says he has been noticing passage of bright blood per rectum on wiping after bowel movements for about 2-3 months. He says that this does not happen every day. He denies pain with bowel movements. He says he may be occasionally constipated. He says that the bleeding does not seem to be heavy. Review of his records show that he had a colonoscopy with Dr. Jimenez in 2019. He had mild diverticulosis, and internal hemorrhoids at that time. 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 Review of Systems Const Denies chills and Denies fever(s) Card Denies chest pain, Denies dyspnea and Denies dyspnea on exertion Resp Denies cough, Denies dyspnea and Denies dyspnea on exertion GI Denies hematochezia and Denies change in bowel habits Denies hematuria and Denies difficulty urinating Musc Denies back pain and Denies limited range of motion Neuro Denies focal weakness and Denies convulsions Psych Denies depression and Denies mood swings Physical Exam Vital Signs: Last Vital Signs Pulse 72 04/04/24 10:12 BP 121/58 L 04/04/24 10:12 BMI result Body Mass Index 33.8 Const General: comfortable and no acute distress Orientation/consciousness: patient oriented x3 Neck Neck: Yes no lymphadenopathy Resp Auscultation: clear to auscultation bilaterally Cardio Rhythm: regular rhythm GI Other: Rectal exam shows an external hemorrhoid on the right side, moderate size, with note appears to be an epidermal cyst adjacent to this in the perianal skin Palpation (GI): Soft to palpation, nontender and no guarding Neuro General: patient oriented x3 Office Procedures Anoscopy He was in corby-knife position. The anoscope was gently inserted. A full examination of the anal canal was done. He had a moderate size internal external hemorrhoidal column on the right side. There were no lesions in the anal canal. There was no fissure. There was no ulceration. There was no induration. There was no bleeding. There was note of what appeared to be an epidermal cyst in the perianal area in the right side. [id number] Assessment & Plan Assessment & Plan (1) Bleeding hemorrhoids: Code(s): K64.9 - Unspecified hemorrhoids Category: Medical Plan: Examination does reveal a moderate-sized hemorrhoidal column, mix of internal external on the right. This is a likely source of his periodic bleeding. I explained to him the option of hemorrhoidectomy. I discussed with him the technique of this procedure. I reviewed the risks including but not limited to bleeding, infections, postop pain as well as the benefits and alternatives. I explained to him what to expect postoperatively. He would like to hold off on surgical intervention at this time. I also asked him to reach out to Dr. Jimenez to check if he is due for his colonoscopy. I did tell him that he can follow-up in the office down the line if he wants these hemorrhoids re-evaluated. Coding Level of Care Code New Pt Level 3 (59545) Diagnoses Bleeding hemorrhoids K64.9 CPT Codes Details - CPT: [id number] ([id number])
== END 2024-04-04 10:32 | disposition home or self-care (01) ==
PROVIDERS: PCP General Practice; Visit Provider Surgery
DX: K64.9 Unspecified hemorrhoids (principal)
CPT/HCPCS: 46600; 99203

== ENCOUNTER → 2024-04-04 10:01 | Outpatient (BNVA) | payer OTHER, SELFPAY | PROVIDERS: PCP General Practice; Visit Provider Surgery | DX: K64.9 Unspecified hemorrhoids (principal) | CPT/HCPCS: 46600; 99202 ==

== ENCOUNTER 2024-04-23 13:06 | Outpatient (AMB) | payer OTHER, SELFPAY ==
--- NOTE | 2024-04-23 13:37 | A.SPINEOV_ITS ---
Intake Visit Reasons: MRI f/u possible sx discussion Intake Note: Mr. Falcon is here today to F/u on MRI results. 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 3-4 weeks ago he developed spontaneous onset of pain going down his left arm into his hand. When I 1st saw him about this he thought it was going into his 4th and 5th digits but now he tells me he is just going into his whole palm area of his hand. If he turns to the left look while he is driving he will get worse shooting pain down his arm that he is ever experienced. He is having trouble sleeping. Thankfully on exam he has not have any weakness, but does have diminished reflexes at the biceps. No Mohr's sign. We discussed the fact that his MRI done at [place] does show multilevel degenerative disc disease. It is not a great quality image but I believe that there is foraminal stenosis on the left at C5-6 compressing the left C6 nerve root that might explain his symptoms. Although the dermatome does not overlap perfectly with the C6 based on his description of the symptoms, we know that this is not always go by the text books. I am going to start him on some basic conservative therapy since he is already failed medical management with Tylenol, ibuprofen and gabapentin. This would include a referral to Dr. Naqvi for either an epidural injection or transforaminal epidural depending on if he thinks he can get into the space okay. I will defer that decision to him. Also, I gave him a referral to PT. I would like to see him back in 6 weeks and we can re-evaluate. Total amount of time spent in this visit was 20 minutes in discussion of symptoms, cervical MRI imaging results and subsequent plan of care Sumit Jacob MD,PhD [facility] Orders: Orders PT Evaluation and Treatment Today M54.12 - Radiculopathy, cervical region Referrals Physiatry Referral M54.12 - Radiculopathy, cervical region Coding Level of Care Code Est Pt Level 3 (44647) Diagnoses Cervical radiculopathy M54.12
== END 2024-04-23 14:33 | disposition home or self-care (01) ==
PROVIDERS: PCP General Practice; Visit Provider Physician Assistant
DX: M54.12 Radiculopathy, cervical region (principal)
CPT/HCPCS: 99213

== ENCOUNTER → 2024-04-23 13:06 | Outpatient (BNVA) | payer OTHER, SELFPAY | PROVIDERS: PCP General Practice; Visit Provider Physician Assistant | DX: M54.12 Radiculopathy, cervical region (principal) | CPT/HCPCS: 99212 ==

== ENCOUNTER 2024-05-10 07:42 | Outpatient (REF) | payer OTHER, SELFPAY ==
--- NOTE | ~2024-05-10 | US_ITS ---
EXAMINATION: US RETROPERITONEAL LIMITED (RENAL ONLY) CLINICAL INFORMATION: Benign lipomatous neoplasm, unspecified. COMPARISON: CT abdomen and pelvis 05/09/2023. Ultrasound kidneys and bladder 04/15/2023. Renal ultrasound 06/26/2019. X-ray abdomen KUB 01/21/2016 and 09/24/2015. TECHNIQUE: Real-time imaging of the kidneys. FINDINGS: RIGHT KIDNEY: 11.8 x 6.6 x 4.7 cm (SAG x AP x TRV). The kidney is normal in size, contour, and echogenicity. Renal cortical thickness is normal. No renal calculi or hydronephrosis. Benign-appearing renal cysts measuring up to 1.1 cm. No follow-up imaging is recommended. LEFT KIDNEY: 13.1 x 4.8 x 3.9 cm (SAG x AP x TRV). The kidney is normal in size, contour, and echogenicity. Renal cortical thickness is normal. No hydronephrosis. Benign-appearing renal cyst measuring 4.4 cm. No follow up imaging is recommended. Nonobstructing stones measuring 3 mm and 2 mm in the midpole, new from prior CT. US/US renal BI IMPRESSION: Nonobstructing left renal stones measuring 3 mm and 2 mm, new from prior CT. Electronically signed by: Sheela Pop MD 05/21/2024 05:49 PM EDT
== END 2024-05-10 07:43 | disposition home or self-care (01) ==
LOC: HO.US 07:42
PROVIDERS: PCP General Practice; Visit Provider Nurse Practitioner Family
DX: D17.9 Benign lipomatous neoplasm, unspecified (principal)
CPT/HCPCS: 76775

== ENCOUNTER 2024-05-18 04:51 | Emergency (ER) | payer OTHER, SELFPAY ==
--- NOTE | ~2024-05-18 | XR_ITS ---
EXAMINATION: XR KNEE LT 2V CLINICAL INFORMATION: Pain. COMPARISON: None. TECHNIQUE: 2 views of the left knee. FINDINGS: The bone mineralization is within normal limits. The joint spaces are fairly well-maintained for patient age. There is a moderate to large joint effusion. Soft tissues are grossly unremarkable. XR/XR knee LT 2V IMPRESSION: 1. Moderate to large joint effusion. 2. No fracture or dislocation. Electronically signed by: Javi Smith MD 05/18/2024 06:48 AM EDT
[2024-05-18 05:03] VITALS: BP 143/66; PULSE 72; RESP 20; TEMP 36.7; O2SAT 97; BMI 32.7
--- NOTE | 2024-05-18 07:23 | ED.EXTPRO ---
HPI - Extremity Problem General Chief complaint: Extremity Problem Stated complaint: left knee pain Time Seen by Provider: 05/18/24 06:41 Source: patient Mode of arrival: ambulatory Limitations: no limitations History of Present Illness ED Provider: Katlyn HPI Narrative: 69 yo M PMHx HTN, recurrent nephrolithiasis, HLD, GALLO, presenting with a one-day history of 10/10 left knee pain. Patient states it came on suddenly and denies trauma/falls. Is having trouble walking due to the pain. 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 Denies fevers, chills, N/V, CP, SOB. Related Data Home Medications ?Medication ?Instructions ?Recorded ?Confirmed acetaminophen 650 mg 650 mg PO Q8H PRN 12/23/21 04/04/24 tablet,extended release (Mapap Arthritis Pain) fluticasone propionate 50 spray intranasal 12/23/21 04/04/24 mcg/actuation nasal spray,suspension ergocalciferol (vitamin D2) 1,250 1,250 mcg PO QWEEK 06/29/22 04/04/24 mcg (50,000 unit) capsule lisinopril 10 1 tab PO DAILY 06/29/22 04/04/24 mg-hydrochlorothiazide 12.5 mg tablet ketorolac 0.5 % eye drops 1 drp ophthalmic (eye) TID 11/02/22 04/04/24 Previous Rx's ?Medication ?Instructions ?Recorded pyridoxine (vitamin B6) 100 mg 100 mg PO DAILY 90 days #90 tabs 01/12/23 tablet finasteride 5 mg tablet 5 mg PO DAILY 90 days #90 tabs 04/22/23 gabapentin 100 mg capsule 100 mg PO TID #90 caps 03/25/24 acetaminophen 325 mg capsule 325 mg PO Q4H PRN pain #30 caps 05/18/24 (Tylenol) morphine 15 mg immediate release 15 mg PO Q6H PRN pain 5 days #10 05/18/24 tablet tabs prednisone 20 mg tablet 40 mg (2 x 20 mg) PO DAILY 5 days 05/18/24 #10 tabs Allergies Allergy/AdvReac Type Severity Reaction Status Date / Time No Known Allergies Allergy Verified 05/18/24 05:06 Review of Systems Review of Systems: Yes all other systems are reviewed and are negative PMFSH Past Medical History Attestation statement: The following information was validated with the patient. Source: old records reviewed and nursing notes reviewed Medical History Bleeding hemorrhoids Hyperlipidemia HTN (hypertension) Obesity Surgical History Hx of cataract surgery Hx of hernia repair Hx of cholecystectomy Hx of tonsillectomy Hx of carpal tunnel repair Family History Family History Sister Diabetes Son GALLO (obstructive sleep apnea) Social History Social History Alcohol intake: never Patient Tobacco Use Status: Never used Tobacco Smoked in Last 30 Days: No Use of substances other than those prescribed or required for medical reasons: No Advance Directives: Yes Advance Directives Information Provided: Yes Advance Directives on File: No Current occupational status: employed 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 Oriented X3. No acute distress. ? No accessory muscle use Head: Normal external exam. Normocephalic. Atraumatic. ? Eyes: PERRLA. ENT: Pharynx normal. Neck: ?Soft full range of motion, no JVD CVS: ?Heart regular rate and rhythm no murmurs and rubs Respiratory: ?Breath sounds are clear to auscultation bilaterally. No wheezing or stridor.? No accessory muscle use noted. Abdomen: ?Soft nontender no rebound or guarding positive bowel sounds Skin: Skin warm and dry.? Normal skin color.? Normal skin turgor. No rashes/lesions/lacerations noted. Extremities: Mild L knee edema, TTP. Slightly warm to touch. No erythema noted. ROM limited by pain, but able to ROM to b/l knees ( L knee painful due to pain) . Ipsilateral hip and ankle WNL. 2+ Dp,at, pt b/l. Neuro: Oriented X 3.? Course Reevaluation(s) Reevaluation #1: X-ray with moderate to large joint effusion, no fracture dislocation. Alexis wrap applied. CBC with a mild normocytic anemia, no leukocytosis. Chemistry with baseline JESSICA. Uric acid level elevated 7.8, this could be consistent with gout. CRP within normal limits. I do not suspect septic joint. Patient to be discharged with pain control, prednisone, orthopedic follow-up. Educated patient on diagnosis and treatment plan, answered all question, patient verbalizes understanding. At this time patient will be discharged home, advised to return with new or worsening symptoms. Educated on worrisome signs and symptoms and when to return. At this time I feel comfortable discharge home. Time: 08:29 Medications Administered Discontinued Medications Generic Name Dose Route Start Last Admin Trade Name Freq PRN Reason Stop Dose Admin Acetaminophen 650 mg 05/18/24 07:44 05/18/24 08:18 Acetaminophen 325 Mg Tablet PO 05/18/24 07:45 650 mg ONCE ONE Administration Morphine Sulfate 15 mg 05/18/24 07:55 05/18/24 08:19 Morphine Sulfate Immed Release 15 Mg Tablet PO 05/18/24 07:56 15 mg ONCE ONE Administration Medical Decision Making Medical Decision Making [facility] Narrative: 69 yo M PMHx HTN, recurrent nephrolithiasis, HLD, GALLO, presenting with a one-day history of 10/10 left knee pain, no trauma to affected joint. PE: Mild L knee edema, TTP. Slightly warm to touch. No erythema noted. ROM limited by pain. Hx and PE concerning for gout vs osteoarthritis vs bursitis. Less likely, septic arthritis, fracture, threat to limb, nv compromise Plan: labs, imaging Differential Diagnosis Differential Diagnoses: The differential diagnosis associated with the presentation includes (Hx and PE concerning for gout vs osteoarthritis vs bursitis. Less likely, septic arthritis, fracture, threat to limb. ) Admission/Observation Consideration of admission/observation: Escalation of care including admission/observation considered Unlikely Lab Data [facility] Lab Attestation statement: I reviewed the patient's lab results. 05/18/24 07:44 05/18/24 07:43 Labs: Lab Results 05/18/24 05/18/24 Range/Units 07:43 07:44 WBC 7.1 (4.8-10.8) X10*3/uL RBC 4.14 L (4.60-5.80) X10*6/uL Hgb 13.5 L (14.0-18.0) g/dl Hct 39.9 L (42.0-52.0) % MCV 96.4 (80.0-98.0) fL MCH 32.6 (27.0-33.0) pg MCHC 33.8 (31.0-36.0) g/dl RDW 12.5 (11.0-16.0) % Plt Count 175 (160-400) X10*3/uL MPV 10.5 (9.4-12.4) fL Immature Gran % (Auto) 0.7 H (0.0-0.4) % Neut % (Auto) 71.8 (45-73) % Lymph % (Auto) 17.3 L (20-40) % Republic % (Auto) 8.1 (2-11) % Eos % (Auto) 1.7 (0-4) % Baso % (Auto) 0.4 (0-2) % Lymph # (Auto) 1.2 (1.2-4.9) X10*3/uL Republic # (Auto) 0.6 (0.1-1.2) X10*3/uL Eos # (Auto) 0.1 (0.0-0.4) X10*3/uL Baso # (Auto) 0.0 (0.0-0.2) X10*3/uL Abs Immat Gran (auto) 0.05 H (0.00-0.03) X10*3/uL Absolute Neuts (auto) 5.1 (2.0-8.3) x10*3/uL Absolute Nucleated RBC 0.000 (0.0-0.012) X10*3/uL Nucleated RBC % (auto) 0.0 (0.0-0.2) /100WBC ESR 5 (0-15) MM/HR Sodium 141 (135-145) mmol/L Potassium 4.6 (3.3-5.1) mmol/L Chloride 109 H (96-108) mmol/L Carbon Dioxide 27 (22-29) mmol/L Anion Gap 10 L (12-20) BUN 21 H (9-16) mg/dL Creatinine 1.52 H (0.5-1.4) mg/dL Estim Creat Clear Calc 50.4 Estimated GFR 45 Random Glucose 123 H (60-115) mg/dL Uric Acid 7.8 H (3.4-7.0) mg/dL Calcium 10.0 (8.4-10.2) mg/dL Magnesium 2.2 (1.6-2.6) mg/dL Total Bilirubin 0.4 (0.0-1.0) mg/dL AST 17 (5-37) U/L ALT 20 (0-40) U/L Alkaline Phosphatase 67 (39-117) U/L C-Reactive Protein 0.12 (< or = 0.50) mg/dL Total Protein 6.7 (6.5-8.0) g/dL Albumin 4.0 (3.5-5.0) g/dL Independent Interpretation I performed an independent interpretation of an: Plain X-Ray (XR/XR knee LT 2V IMPRESSION: 1. Moderate to large joint effusion. 2. No fracture or dislocation. ) Radiology Impression Discussion of test interpretation with radiology: I have reviewed the radiologist's reading. Chronic Conditions Patient?s care impacted by: Other (HTN, obesity, GALLO, HLD ) Critical Care Time Critical Care Time Critical Care Time: Yes Total Critical Care Time: 35 Attestation: I attest to this time spent taking care of the patient, obtaining history, physical, reviewing labs, imaging, treatment of patients condition +/- specialist/hospitalist consult Discharge Plan Discharge Clinical Impression: Gout Patient Disposition: Home, Self-Care Instructions: Low Purine Diet (ED), Gout (ED) Additional Instructions: Take your medications as prescribed. If you were prescribed antibiotics today, it is important that you take your medication to their entirety, do not skip any doses, do not finish them early. Follow-up with your primary care provider this week. Return to the emergency department with new or worsening symptoms. Such as fevers, chills, chest pain, shortness of breath, nausea, vomiting, dizziness, headache, vision changes, lethargy In case of emergency call 911 A narcotic has been sent to your pharmacy please take this as prescribed. Do not take more than the prescribed dose. Narcotic medications can cause addiction. Please do not mix them with alcohol. Do not take them while driving or operating machinery. Do not take them with any other narcotics. Do not share them with friends or family. They can cause constipation. Take them only for severe pain. Prescriptions: New morphine 15 mg tablet 15 mg PO Q6H PRN (Reason: pain) 5 Days Qty: 10 0RF Rx Instructions: Partial Fill upon patient request. prednisone 20 mg tablet 40 mg PO DAILY 5 Days Qty: 10 0RF acetaminophen [Tylenol] 325 mg capsule 325 mg PO Q4H PRN (Reason: pain) Qty: 30 0RF No Action gabapentin 100 mg capsule 100 mg PO TID Qty: 90 0RF ketorolac 0.5 % drops 1 drp ophthalmic (eye) TID fluticasone propionate 50 mcg/actuation spray,suspension intranasal acetaminophen [Mapap Arthritis Pain] 650 mg tablet extended release 650 mg PO Q8H PRN lisinopril-hydrochlorothiazide 10-12.5 mg tablet 1 tab PO DAILY ergocalciferol (vitamin D2) 1,250 mcg (50,000 unit) capsule 1,250 mcg PO QWEEK finasteride 5 mg tablet 5 mg PO DAILY 90 Days Qty: 90 3RF pyridoxine (vitamin B6) 100 mg tablet 100 mg PO DAILY 90 Days Qty: 90 4RF Referrals: Christine Lundy MD [Primary Care Provider] - 2 days Stand Alone Forms: Work/School Release Discharge Date/Time: 05/18/24 08:45 Print Language: Kyrgyz
--- NOTE | 2024-05-18 07:37 | PC.NURSE ---
patient left knee noted to be swollen and warm to the touch. patient states pain is worse in the middle of his knee. 06/07
[2024-05-18 07:49] LABS: MANUAL DIFF FLAG NO
[2024-05-18 07:50] LABS: Basophils Percent Auto 0.4 % (0-2); Eosinophils Absolute Auto 0.1 X10*3/uL (0.0-0.4); Eosinophils Percent Auto 1.7 % (0-4); Hematocrit 39.9 % (42.0-52.0); Hemoglobin 13.5 g/dl (14.0-18.0); Imm Gran Abs Auto 0.05 X10*3/uL (0.00-0.03); Imm Gran Pct Auto 0.7 % (0.0-0.4); Lymphocytes Absolute Auto 1.2 X10*3/uL (1.2-4.9); Lymphocytes Percent Auto 17.3 % (20-40); Mean Corpuscular HGB Conc 33.8 g/dl (31.0-36.0); Mean Corpuscular Hemoglobin 32.6 pg (27.0-33.0); Mean Corpuscular Volume 96.4 fL (80.0-98.0); Mean Platelet Volume 10.5 fL (9.4-12.4); Monocytes Absolute Auto 0.6 X10*3/uL (0.1-1.2); Monocytes Percent Auto 8.1 % (2-11); Neutrophils Absolute Auto 5.1 x10*3/uL (2.0-8.3); Neutrophils Percent Auto 71.8 % (45-73); Platelet Count 175 X10*3/uL (160-400); Red Blood Count 4.14 X10*6/uL (4.60-5.80); Red Cell Distribution Width 12.5 % (11.0-16.0); White Blood Count 7.1 X10*3/uL (4.8-10.8)
[2024-05-18 08:05] LABS: Alanine Aminotransferase 20 U/L (0-40); Alkaline Phosphatase 67 U/L (39-117); Anion Gap 10 (12-20); Aspartate Amino Transferase 17 U/L (5-37); Bilirubin Total 0.4 mg/dL (0.0-1.0); Blood Urea Nitrogen 21 mg/dL (9-16); C Reactive Protein 0.12 mg/dL (< or = 0.50); Carbon Dioxide 27 mmol/L (22-29); Chloride 109 mmol/L (96-108); Creatinine Clr Calc Pharmacy 50.4; Estimated Glomerular Filt Rate 45; Glucose Random 123 mg/dL (60-115); Magnesium 2.2 mg/dL (1.6-2.6); Potassium 4.6 mmol/L (3.3-5.1); Sodium 141 mmol/L (135-145); Total Protein 6.7 g/dL (6.5-8.0); Uric Acid 7.8 mg/dL (3.4-7.0)
[2024-05-18] MEDS: Acetaminophen 325 MG TABLET 650 MG PO (08:18)
[2024-05-18] MEDS: Morphine Sulfate Immed Release 15 MG TABLET PO (08:19)
--- NOTE | 2024-05-18 08:23 | PC.NURSE ---
leandro wrap applied to patient left knee. patient tolerated well.
[2024-05-18 08:35] LABS: Erythrocyte Sedimentation Rate 5 MM/HR (0-15)
[2024-05-18 08:44] VITALS: BP 131/71; PULSE 79; RESP 16; TEMP 36.2; O2SAT 94
== END 2024-05-18 08:45 | disposition home or self-care (01) ==
PROVIDERS: Physician Assistant; Emergency Provider Emergency Medicine; PCP General Practice
DX: M10.062 Idiopathic gout, left knee (principal); M25.562 Pain in left knee; Z79.899 Other long term (current) drug therapy
CPT/HCPCS: 36415; 73560; 80053; 83735; 84550; 85025; 85652; 86140; 99283; 99284

== ENCOUNTER 2024-06-07 08:06 | Outpatient (REF) | payer OTHER, SELFPAY ==
[2024-06-07 12:14] LABS: Cholesterol 209 mg/dL (<200); HDL Cholesterol 67 mg/dL (>40); LDL Cholesterol Calculated 113 mg/dL (<100); Triglycerides 145 mg/dL (<150)
[2024-06-07 12:17] LABS: Prostate Specific Antigen 2.34 ng/mL (<0.05-4.0)
== END 2024-06-07 08:07 | disposition home or self-care (01) ==
LOC: HO.HHCL 08:06
PROVIDERS: Nurse Practitioner Family; Visit Provider Family Medicine
DX: E78.1 Pure hyperglyceridemia (principal); R39.12 Poor urinary stream; N39.43 Post-void dribbling; Z12.5 Encounter for screening for malignant neoplasm of prostate
CPT/HCPCS: 36415; 80061; 84153

== ENCOUNTER 2024-06-08 13:08 | Outpatient (AMB) | payer OTHER, SELFPAY ==
--- NOTE | 2024-06-08 13:19 | A.SPINEOV_ITS ---
Intake Visit Reasons: f/up after therapy Intake Note: Mr. Falcon is here to F/u after PT. 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 His arm pain is significantly improved. He did try physical therapy but it only aggravated him so he stopped it. As seems very reasonable. He was considering getting the injection with Dr. Naqvi but now that the pain is better he is likely going to defer this. I told him to call me if the pain gets worse down the road we would be happy to re-evaluate for surgery again at the C5-6 disc. Total amount of time spent in this visit was 20 minutes in discussion of symptoms, cervical imaging results and subsequent plan of care Sumit Jacob MD,PhD [facility] Coding Level of Care Code Est Pt Level 3 (23007) Diagnoses Cervical radiculopathy M54.12
== END 2024-06-08 14:45 | disposition home or self-care (01) ==
PROVIDERS: PCP General Practice; Visit Provider Physician Assistant
DX: M54.12 Radiculopathy, cervical region (principal)
CPT/HCPCS: 99213

== ENCOUNTER → 2024-06-08 13:08 | Outpatient (BNVA) | payer OTHER, SELFPAY | PROVIDERS: PCP General Practice; Visit Provider Physician Assistant | DX: M54.12 Radiculopathy, cervical region (principal) | CPT/HCPCS: 99212 ==

== ENCOUNTER 2024-06-28 13:07 | Outpatient (AMB) | payer OTHER, SELFPAY ==
--- NOTE | 2024-06-28 13:09 | A.OFFVIS_ITS ---
Intake Visit Reasons: 1yr follow up/US(set) Intake Note: Patient presents for follow up MRI results/nephrolithiasis Urology Medications: Vitamin B6, finasteride Blood Thinner: none Work Distributor Required: No Accompanied by: Self / Same As Patient Allergies No Known Allergies Allergy (Verified 06/28/24 14:09) Medication List - Last Reconciled 06/28/24 by BO Rg-JAH acetaminophen (Tylenol) 325 mg PO Q4H PRN acetaminophen ER ([place] Arthritis Pain) 650 mg PO Q8H PRN ergocalciferol (vitamin D2) 1,250 mcg PO QWEEK finasteride 5 mg PO DAILY 90 days fluticasone propionate 50 mcg/actuation sprays intranasal gabapentin 100 mg PO TID ketorolac 0.5% 1 drp ophthalmic (eye) TID lisinopril-hydrochlorothiazide 10-12.5 mg 1 tab PO DAILY pyridoxine (vitamin B6) 100 mg PO DAILY 90 days HPI Comments Details: Palomo is a pleasant 69 year-old male patient of Dr. Lundy. He has a past medical history of hyperlipidemia, hypertension, GALLO, obesity, and cervical radiculopathy. He presents to the office today for a follow up of his lower urinary tract symptoms and nephrolithiasis. Recent renal imaging results reviewed with the patient today. Right kidney with no calculi or hydronephrosis. Benign-appearing renal cysts measuring up to 1.1 cm that require no additional follow-up imaging per radiology report. Left kidney with no hydronephrosis. Benign-appearing renal cysts measuring 4.4 cm that require no additional follow-up per radiology report. Nonobstructing stones measuring 3 mm and 2 mm in the mid pole. In discussion with the patient today he reports noting weak urinary stream when he misses a dose of his tamsulosin. He reports noting increased swelling and pain to the left testicle. In assessment of the patient today the penis is uncircumcised small to moderate left hydrocele palpated. Otherwise no open areas, lesions, and or drainage noted to the area. We discussed further intervention to include surgical intervention verses in office drainage. Risks and benefits of these interventions were discussed. He otherwise denies urinary urgency, urinary frequency, incontinence, nocturia, hematuria, dysuria, foul smelling urine, flank pain, fever, and or chills. He is happy with his current voiding parameters on Flomax. In office urinalysis results reviewed with the patient today. Recent PSA results reviewed with the patient today. PSAs are as follows: 08/15 2.2, 04/20 2.7, 06/21 2.3 When asked he reports compliance with finasteride and vitamin B6 as prescribed. He also reports to be drinking plenty of water daily. He otherwise offers no other issues or concerns at this time. 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 Review of Systems Const Reports as per HPI Eyes Reports no additional complaints ENT Reports no additional complaints Card Reports as per HPI Resp Reports as per HPI GI Reports no additional complaints Reports as per HPI Musc Reports no additional complaints Neuro Reports no additional complaints Psych Reports no additional complaints Endo Reports no additional complaints Ezekiel/Lymph Reports no additional complaints Aller/Immun Reports no additional complaints Physical Exam Const General: cooperative, healthy appearing, comfortable, no acute distress, well developed, alert and awake Nutritional Appearance: overweight Orientation/consciousness: patient oriented x3 Limitations: no limitations HEENT Head: Yes normal to inspection, Yes normocephalic and Yes atraumatic Ears: hearing grossly normal bilaterally Eyes General: appearance normal, both eyes and all related structures Neck Neck: Yes normal visual inspection and Yes trachea midline Chest Chest palpation & inspection: normal inspection of the chest Resp Effort & Inspection: normal respiratory effort and able to speak in complete sentences Cardio Rate: regular rate GI Inspection: Yes normal to inspection General: Yes no CVA tenderness Back/Spine/Pelvis Back: no CVA tenderness Skin General skin exam: no rashes or lesions noted Neuro General: patient oriented x3 Extrem General: Yes normal to inspection Psych Appearance: grossly normal and well kempt Mental Status: mental status grossly normal Speech and movement: Normal speech and movement present and Clear speech present Affect: normal affect Attitude: cooperative Thought process: Normal thought process present Thought content: Normal thought content present Insight: Fair insight present (Psych) Judgement: Fair judgement present (Psych) Results AMB Urinalysis, Automated UA Leukoctes 0 Vesna/uL Last Edit by [employer] on 06/28/24 13:26 UA Nitrite Last Edit by [employer] on 06/28/24 13:26 UA Urobilinogen 0.2 mg/dL Last Edit by [employer] on 06/28/24 13:26 UA Protein 0 mg/dL Last Edit by [employer] on 06/28/24 13:26 UA pH 6.0 Last Edit by [employer] on 06/28/24 13:26 UA Blood 0 Ray/uL Last Edit by [employer] on 06/28/24 13:26 UA Specific [place] 1.025 Last Edit by [employer] on 06/28/24 13:26 UA Ketone Last Edit by [employer] on 06/28/24 13:26 UA Bilirubin 0 mg/dL Last Edit by [employer] on 06/28/24 13:26 UA Glucose 0 mg/dL Last Edit by [employer] on 06/28/24 13:26 Results Reviewed Results Reviewed: Laboratory Last Values Urine pH (Auto) 6.0 06/28/24 13:19 Specific [place] (Auto) 1.025 06/28/24 13:19 Urine Protein (Auto) 0 mg/dL 06/28/24 13:19 Glucose (UA)(Auto) 0 mg/dL 06/28/24 13:19 Urine Blood (Auto) 0 Ray/uL 06/28/24 13:19 Urine Bilirubin (Auto) 0 mg/dL 06/28/24 13:19 Urine Urobilinogen (Auto) 0.2 mg/dL 06/28/24 13:19 Leukocyte Esterase (Auto) 0 Vesna/uL 06/28/24 13:19 Date of Service: 05/10/24 EXAMINATION: US RETROPERITONEAL LIMITED (RENAL ONLY) FINDINGS: RIGHT KIDNEY: 11.8 x 6.6 x 4.7 cm (SAG x AP x TRV). The kidney is normal in size, contour, and echogenicity. Renal cortical thickness is normal. No renal calculi or hydronephrosis. Benign-appearing renal cysts measuring up to 1.1 cm. No follow-up imaging is recommended. LEFT KIDNEY: 13.1 x 4.8 x 3.9 cm (SAG x AP x TRV). The kidney is normal in size, contour, and echogenicity. Renal cortical thickness is normal. No hydronephrosis. Benign-appearing renal cyst measuring 4.4 cm. No follow up imaging is recommended. Nonobstructing stones measuring 3 mm and 2 mm in the midpole, new from prior CT. US/US renal BI IMPRESSION: Nonobstructing left renal stones measuring 3 mm and 2 mm, new from prior CT. Assessment & Plan Assessment & Plan (1) Renal cyst: Code(s): N28.1 - Cyst of kidney, acquired Category: Medical (2) Weak urinary stream: Code(s): R39.12 - Poor urinary stream Category: Medical (3) Recurrent nephrolithiasis: Code(s): N20.0 - Calculus of kidney Category: Medical (4) Hydrocele: Code(s): N43.3 - Hydrocele, unspecified Category: Medical Plan In office urinalysis results reviewed with the patient today; as noted above. Recent renal imaging results reviewed with the patient today; as noted above. Discussed obtaining scrotal ultrasound for further assessment evaluation of left-sided hydrocele. Discussed further interventions to include surgical intervention verses in office drainage; risks and benefits of these interventions were discussed. Continue Flomax as prescribed. Continue finasteride and vitamin B6 as discussed and prescribed. Refills provided on urological medications. Discussed, educated, and stressed the importance of adequate hydration relation to nephrolithiasis. We discussed potential causes of nephrolithiasis, weak urinary stream, and hydroceles. Follow-up in 1-3 months with imaging to be completed prior; or sooner with any issues, concerns, and or questions. Orders: Orders US scrotum Today N43.3 - Hydrocele, unspecified AMB Urinalysis Automated Today Z13.9 - Encounter for screening, unspecified Medications: New tamsulosin 0.4 mg PO BEDTIME 90 days 90 caps 1RF N40.1 - Benign prostatic hyperplasia with lower urinary tract symptoms, R35.1 - Nocturia Refilled pyridoxine (vitamin B6) 100 mg PO DAILY 90 days 90 tabs 4RF finasteride 5 mg PO DAILY 90 days 90 tabs 3RF N40.0 - Benign prostatic hyperplasia without lower urinary tract symptoms Patient Instructions: The patient had an opportunity to ask questions regarding the treatment plan. All questions were answered. Physical exam, labs, and imaging were discussed and reviewed in detail. As well as risks, benefits, and discussion of treatment choices. No major barriers to understanding were identified. The patient expressed understanding and agreement with the above treatment plan. The patient was made aware they should contact our office by phone for worsening of their current condition, the appearance of new symptoms, or with any questions or concerns. Compliance is encouraged with any medications and follow up testing that is ordered. It is a privilege to be allowed the opportunity to participate in? your urological care.? Again, if you have any questions or concerns If you have any questions or concerns please do not hesitate to contact me. The office is [phone]. This note is constructed using voice recognition software. While every effort has been made to ensure accuracy manufacturing engineering professor errors may have been included. Yours sincerely, WEI Rg Coding Level of Care Code Est Pt Level 3 (14127) Complex EM visit Add On G2211 Diagnoses Renal cyst N28.1 Weak urinary stream R39.12 Recurrent nephrolithiasis N20.0 Hydrocele N43.3
== END 2024-06-28 13:48 | disposition home or self-care (01) ==
LOC: HO.HUSH 13:07
PROVIDERS: PCP General Practice; Visit Provider Nurse Practitioner Family
DX: N28.1 Cyst of kidney, acquired (principal); R39.12 Poor urinary stream; N20.0 Calculus of kidney; N43.3 Hydrocele, unspecified; Z13.9 Encounter for screening, unspecified
CPT/HCPCS: 99213; G2211

== ENCOUNTER → 2024-06-28 13:07 | Outpatient (BNVA) | payer OTHER, SELFPAY | PROVIDERS: PCP General Practice; Visit Provider Nurse Practitioner Family | DX: N28.1 Cyst of kidney, acquired (principal); R39.12 Poor urinary stream; N20.0 Calculus of kidney; N43.3 Hydrocele, unspecified | CPT/HCPCS: 81003; 99212 ==

== ENCOUNTER 2024-08-06 12:34 | Outpatient (REF) | payer OTHER, SELFPAY ==
--- OUTSIDE RECORDS SUMMARY | 2024-08-08 15:28 | XMS_ITS | Continuity of Care Document ---
Author Organization [facility] [place] Address [address], [facility] [address] [place] [address]- Care Team Providers Care Student Outreach Coordinator Name Role Phone Kamron VARGAS, Christine Bullard Primary Care Physician Encounter 07/31/24 - 08/07/24 [facility] [place] [address], [address] [place] [address]- Attending Physician: Renetta Mcmullen Admitting Physician: Renetta Mcmullen Referring Physician: Renetta Mcmullen Encounter Type: OutPatient One Time Allergies, Adverse Reactions, Alerts No Known Allergies Medications amLODIPine 5 mg oral tablet 5 mg, 1, tablet, By Mouth, Daily in AM, Refills 0, Maintenance, 10/11/17 11:15:33 AM EST Start Date: 10/11/17 Status: Ordered Repeat number: 1 dexamethasone/neomycin/polymyxin B ophthalmic 1 mg-3.5 mg-65635 u/ml suspension 5 mL, 0 Refill(s), INSTILL 1 DROP INTO BOTH EYES FOUR TIMES A DAY USE FOR 2 WEEKS THEN STOP, 0 Refills, 03/27/24 8:50:00 AM EDT, Partial fill upon patient request if the prescription is for a scheduleII opioid drug. Start Date: 03/27/24 Status: Ordered Repeat number: 1 ergocalciferol 29324 iu oral capsule 4 each, 0 Refill(s), TAKE 1 CAPSULE (50,000 UNITS TOTAL) BY MOUTH ONCE WEEKLY, Refills 0, 03/27/24 8:50:00 AM EDT, Partial fill upon patient request if the prescription is for a schedule II opioid drug. Start Date: 03/27/24 Status: Ordered Repeat number: 1 fexofenadine 60 mg oral tablet 90 each, 0 Refill(s), TAKE 1 TABLET BY MOUTH IF NEEDED EACH DAY (ALLERGIES)., 0 Refills, 03/27/24 8:50:00 AM EDT, Partial fill upon patient request if the prescription is for a schedule II opioid drug. Start Date: 03/27/24 Status: Ordered Repeat number: 1 hydrochlorothiazide-lisinopril 12.5 mg-10 mg oral tablet 90 each, 0 Refill(s), TAKE 1 TABLET BY MOUTH EVERY DAY, 0 Refills, 03/27/24 8:50:00 AM EDT, Partial fill upon patient request if the prescription is for a schedule II opioid drug. Start Date: 03/27/24 Status: Ordered Repeat number: 1 hydrocortisone 2.5% topical cream 60 Gm, 0 Refill(s), APPLY TO RECTUM AFTER BOWEL MOVEMENT, 0 Refills, 03/27/24 8:50:00 AM EDT, Partial fill upon patient request if the prescription is for a schedule II opioid drug. Start Date: 03/27/24 Status: Ordered Repeat number: 1 hydrocortisone/neomycin/polymyxin B otic 1%-0.35%-01401 u/ml solution 10 mL, 0 Refill(s), PUT 3 DROPS INTO AFFECTED EAR(S) 4 TIMES DAILY., 0 Refills, 03/27/24 8:50:00 AM EDT, Partial fill upon patient request if the prescription is for a schedule II opioid drug. Start Date: 03/27/24 Status: Ordered Repeat number: 1 ibuprofen 800 mg oral tablet 800 Unknown, Oral, 0 Refill(s), Take 800 mg by mouth every 8 (eight) hours if needed., Refills 0, 12/22/23 8:00:00 PM EDT, Partial fill upon patient request if the prescription is for a schedule II opioid drug. Start Date: 12/22/23 Status: Ordered Repeat number: 1 tamsulosin 0.4 mg oral capsule 90 each, 0 Refill(s), TAKE 1 CAPSULE BY MOUTH EVERY DAY IN THE MORNING, Refills 0, 03/27/24 8:50:00 AM EDT, Partial fill upon patient request if the prescription is for a schedule II opioid drug. Start Date: 03/27/24 Status: Ordered Repeat number: 1 Vitamin D3 1 capsule, By Mouth, Every 7 days, 0 Refills, Maintenance, 03/20/19 3:18:38 PM EDT Start Date: 03/20/19 Status: Ordered Repeat number: 1 Problem List Condition Confirmation Course Effective Dates Status H ealth Status Informant Postprandial abdominal bloating Confirmed Active Burping Confirmed Active Dystonia Confirmed Active EMG (electromyogram) abnormalities 1 Confirmed Active Limitation due to disability 2 Confirmed Active H/O heartburn Confirmed Active Weakness of right hand Confirmed Active Abdominal wall hernia Confirmed Active Obese class I Confirmed Active ; abnormal EMG. 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 They are mild and they are symmetric 2initial Oswestry Disability Index: 30% ( moderate disability ) on 02/12/15 Results Radiology Reports * Exam Date Time Procedure Performing Provider Status 07/31/24 7:[address] Abd/Pelvis W/O Contrast Cydnee Angel; Modified Notes: (CT Abd/Pelvis W/O Contrast) Reason For Exam: stone RESULT: CT Abd/Pelvis W/O Contrast CT Abd/Pelvis W/O Contrast THE STUDY WAS PERFORMED AT [facility] , [address] [place] [address] Reason: stone TECHNIQUE: Spiral CT through the abdomen and pelvis without IV contrast formatted in 3 planes. Upper liver and spleen excluded to minimize radiation. This study was performed without oral contrast. Weight-based protocol using automatic tube modulation was used to optimize exposure parameters. Radiation dose: Not available. COMPARISON: Oral and IV contrast CT abdomen pelvis 01/30/2018 FINDINGS: Office Services Clerk View Findings, Lines and Tubes: None. Visualized Chest: Visualized posterior lung bases are clear. No evidence of pleural effusion. Diaphragm: Visualized portion unremarkable. Liver: Steatosis. There is a subtle rounded focus of slightly and relatively greater attenuation near the junction of segments 8 and 4A (35 Hounsfield units), less evident than that seen on 01/30/2018,probably focal fatty sparing. Gallbladder: Absent consistent with prior cholecystectomy. Bile ducts: No biliary ductal dilation. Spleen: Several small calcified granulomata. Pancreas: Normal. Adrenal glands: Normal. Right kidney and ureter: In the right renal pelvis there is a 7.5 x 5.5 mm calculus measuring 1200 Hounsfield units internally. There is also a 2 mm calculus in the lower pole. No hydronephrosis. Normal ureter. Left kidney and ureter: No hydronephrosis, stones, or noncontrast evidence of suspicious masses. Atthe upper pole there is a 3.5 cm fluid attenuation structure consistent with a cyst. 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 Normal ureter. Bladder: Normal. Reproductive organs: The prostate measures 5.2 cm transverse by 4.1 cm AP by 5.8 cm craniocaudal, 66 cc. Stomach, small bowel, and large bowel: Normal. Appendix: Normal. Peritoneum and retroperitoneum: No ascites or pneumoperitoneum. No omental or mesenteric lesions. Lymph nodes: No enlarged lymph nodes. Blood vessels: Normal. No aneurysm. Abdominal and pelvic wall: Moderate size fat-containing left inguinal hernia. Bones: No acute abnormality. Moderate degenerative disease of the lumbar spine. IMPRESSION: 1. There are 2 nonobstructing calculi of the right kidney. 2. There is a 3.5 cm cyst of the left upper renal pole, slightly increased since 2018. 3. Hepatic steatosis. 4. Cholecystectomy. 5. Moderate-sized, fatty left inguinal hernia, appears slightly larger than 2018. WSN: [id number] Ordering Physician: Renetta De La Fuente Dictated By: Wilbur Fallon MD Dictated Date/Time: 07/31/24 2:46 pm Reviewed By: Wilbur Fallon MD Signed By: Wilbur Fallon MD Signed Date/Time: 07/31/24 2:46 pm Transcribed By: GAGAN Transcribed Date/Time: 07/31/24 2:45 pm Social History Social History Type Response Smoking Status Never smoker; Tobacc o user in household: No entered on: 10/01/14 Sex Sex Representation Male (finding) Patient Care team information Care Team Personnel Name: Christine Lundy MD Position: [facility] Physician - Primary Care Member Role: PCP [address]: [address] [place] [address], [address] [place] [address] Telecom: Name: Alyson Morgan Position: [facility] AMB Nurse Member Role: Lifetime Consulting Physician Care Team Related Persons Name: NIKA DOWELL Insurance Providers Guarantor name: TANMAY ANGULO Health Plan Information #: 1 Payer: NA Member Number: [id number] Policy Number: NA Group Number: [facility] Health Plan Information #: 2 Payer: NA Member Number: [id number] Policy Number: NA Group Number: NA
--- OUTSIDE RECORDS SUMMARY | 2024-08-08 15:28 | XMS_ITS | Continuity of Care Document ---
Author Organization [facility] Address [address] [facility] [address] [place] [address]- Care Team Providers Care Glue Spreader Name Role Phone Kamron VARGAS, Christine Bullard Primary Care Physician [phone] Encounter 07/11/24 - 07/18/24 [facility] [address], [address] [place] [address]- Attending Physician: Renetta Mcmullen Admitting Physician: Renetta Mcmullen Referring Physician: Renetta Mcmullen Encounter Type: OutPatient One Time Allergies, Adverse Reactions, Alerts No Known Allergies Medications amLODIPine 5 mg oral tablet 5 mg, 1, tablet, By Mouth, Daily in AM, Refills 0, Maintenance, 10/11/17 11:15:33 AM EST Start Date: 10/11/17 Status: Ordered Repeat number: 1 dexamethasone/neomycin/polymyxin B ophthalmic 1 mg-3.5 mg-36461 u/ml suspension 5 mL, 0 Refill(s), INSTILL 1 DROP INTO BOTH EYES FOUR TIMES A DAY USE FOR 2 WEEKS THEN STOP, 0 Refills, 03/27/24 8:50:00 AM EDT, Partial fill upon patient request if the prescription is for a scheduleII opioid drug. Start Date: 03/27/24 Status: Ordered Repeat number: 1 ergocalciferol 31977 iu oral capsule 4 each, 0 Refill(s), [...] Ordered Repeat number: 1 hydrocortisone/neomycin/polymyxin B otic 1%-0.35%-04288 u/ml solution 10 mL, 0 Refill(s), PUT [...] Exam Date Time Procedure Performing Provider Status 07/10/24 3:35 PM US Pelvic Doppler Comp Alec Angel; Auth (Verified) Notes: (US Pelvic Doppler Comp) Reason For Exam: testicular pain unsp RESULT: US Pelvic Doppler Comp US Scrotum and Contents, US Pelvic Doppler Comp Examination performed at [facility]. Reason: testicular pain unsp COMPARISON: None TECHNIQUE: High-resolution sonography with grayscale, color and spectral Doppler analysis. FINDINGS: RIGHT: Right testicle size: 4.7 x 2.2 x 3.1 cm (16.8 cc). Normal right testicle size, contour and echotexture without focal lesions. Normal arterial and venous waveforms. The epididymis is unremarkable. No significant hydrocele or varicocele. LEFT: Left testicle size: 4.3 x 2.1 x 3.4 cm (16 point cc). Normal left testicle size, contour and echotexture without focal lesions. The epididymis is not visualized. No significant hydrocele or varicocele. IMPRESSION: Normal scrotal ultrasound. WSN: [id number] Ordering Physician: Renetta De La Fuente Dictated By: Sumit Benito MD Dictated Date/Time: 07/11/24 9:20 am Reviewed By: Sumit Benito MD Signed By: Sumit Benito MD Signed Date/Time: 07/11/24 9:20 am Transcribed By: GAGAN Transcribed Date/Time: 07/11/24 9:18 am * Exam Date Time Procedure Performing Provider Status 07/10/24 3:35 PM US Scrotum and Contents Jak Angel; Modified Notes: (US Scrotum and Contents) Reason For Exam: testicular pain unsp RESULT: US Scrotum and Contents US Scrotum and Contents, US Pelvic Doppler Comp Examination performed at [facility]. Reason: testicular pain unsp COMPARISON: None TECHNIQUE: High-resolution sonography with grayscale, color and spectral Doppler analysis. FINDINGS: RIGHT: Right testicle size: 4.7 x 2.2 x 3.1 cm (16.8 cc). Normal right testicle size, contour and echotexture without focal lesions. Normal arterial and venous waveforms. The epididymis is unremarkable. No significant hydrocele or varicocele. LEFT: Left testicle size: 4.3 x 2.1 x 3.4 cm (16 point cc). Normal left testicle size, contour and echotexture without focal lesions. The epididymis is not visualized. No significant hydrocele or varicocele. IMPRESSION: Normal scrotal ultrasound. WSN: [id number] Ordering Physician: Renetta De La Fuente Dictated By: Sumit Benito MD Dictated Date/Time: 07/11/24 9:20 am Reviewed By: Sumit Benito MD Signed By: Sumit Benito MD Signed Date/Time: 07/11/24 9:20 am Transcribed By: GAGAN Transcribed Date/Time: 07/11/24 9:18 am Social History Social History Type Response Smoking Status Never smoker; Tobacc o user in household: No entered on: 10/01/14 Sex Sex Representation Male (finding) Patient Care team information Care Team Personnel Name: Christine Lundy MD Position: [facility] Physician - Primary Care Member Role: PCP Address: [address] [place] [address], [address] [place] [address] Telecom: Name: Alyson Morgan Position: [facility] AMB Nurse Member Role: Lifetime Consulting Physician Care Team Related Persons Name: NIKA DOWELL Insurance Providers Guarantor name: TANMAY KEV Health Plan Information #: 1 Payer: NA Member Number: [id number] Policy Number: NA Group Number: [facility] Health Plan Information #: 2 Payer: NA Member Number: [id number] Policy Number: NA Group Number: NA
--- OUTSIDE RECORDS SUMMARY | 2024-08-08 15:28 | XMS_ITS | Continuity of Care Document ---
Author Organization [employer] [facility], [place] [employer] - [employer] Address [address] [place] [id number] Care Team Providers Care Logger Driving Horses Name Role Phone [facility] OTHER [facility] OTHER Assessment Encounter Date Assessment Date Assessment LastModified by Organization Details LastModified Time 07/16/2024 07/16/2024 service called for LLE pain found 69 yom wit hx HTN c/o 4d LLE pain with wgt bearing pain aggravated with walking no pain at rest some relief to topical heat denies trauma or other inciting event denies leg swelling, redness VSS reported exam neg for swelling or marked difference in leg circumference non-tender knee, calf muscle, achilles, heel ROM intact #Soleus strain uncomplicated at this time topical heat, gentle stretching notify service if worsening otherwise return to primary team [email or web address] Not available 07/16/2024 18:57:13 Plan of Treatment Reminders Order Date Submit Date Provider Last Modified By Organization Details Last Modified Time Details Appointments None record ed. Lab None record ed. Referral None record ed. Procedures None record ed. Surgeries None record ed. Imaging None record ed. Medication Orders None record ed. Patient TargetsNo targets recorded. Patient InstructionsNo instructions recorded. Reason for Referral None Reported. Medical Equipment None Reported. Allergies No known drug allergies Medications Name Sig Start Date Stop Date Status Note LastModified by Organization Details LastModified Time cyclobenzapr ine 10 mg tablet TAKE 1 TABLET (10 MG) BY MOUTH EVERY 8 (EIGHT) HOURS IF NEEDED FOR MUSCLE SPASMS FOR UP TO 15 DAYS. active Not Available Not Available No t Available atorvastatin 80 mg tablet TAKE 1 TABLET BY MOUTH EVERY DAY IN THE EVENING active Not Available Not Available No t Available amlodipine 5 mg tablet TAKE 1 TABLET BY MOUTH EVERY DAY active Not Available Not Available No t Available ketorolac 0.5 % eye drops PLEASE SEE ATTACHED FOR DETAILED DIRECTIONS active Not Available Not Available N ot Available tamsulosin 0.4 mg capsule TAKE 1 CAPSULE BY MOUTH EVERY DAY IN THE MORNING active Not Available Not Available No t Available lorazepam 2 mg tablet TAKE 1 TABLET (2 MG) BY MOUTH 1 (ONE) TIME IF NEEDED FOR ANXIETY (FLIGHT ANXIETY) FOR UP TO 2 DOSES. active Not Available Not Available No t Available polymyxin B sulfate 10,000 unit-trimeth oprim 1 mg/mL eye drops INSTILL 1 DROP BY OPHTHALMIC ROUTE EVERY 6 HOURS INTO RIGHT EYE FOR 3-5 DAYS active Not Available Not Available No t Available pyridoxine (vitamin B6) 100 mg tablet TAKE 1 TABLET BY MOUTH EVERY DAY active Not Available Not Available No t Available ergocalcifer ol (vitamin D2) 1,250 mcg (50,000 unit) capsule TAKE 1 CAPSULE BY MOUTH ONCE A WEEK active Not Available Not Available No t Available lorazepam 1 mg tablet TAKE 1 TABLET BY ORAL ROUTE 20 MINUTES PRIOR TO FLIGHT active Not Available Not Available No t Available azelastine 137 mcg (0.1 %) nasal spray SPRAY 2 SPRAY INTRANASALL Y 2 TIMES A DAY FOR 28 DAYS ADMINISTER INTO EACH NOSTRIL active Not Available Not Available No t Available Viagra 100 mg tablet TAKE 1/2 TO 1 TABLET BY MOUTH ONCE DAILY NEEDED & DIRECTED active Not Available Not Available No t Available lisinopril 10 mg-hydrochlo rothiazide 12.5 mg tablet TAKE 1 TABLET BY MOUTH EVERY DAY active Not Available Not Available No t Available fluticasone propionate 50 mcg/actuatio n nasal spray,suspen stefania SPRAY 2 SPRAYS INTO EACH NOSTRIL EVERY DAY active Not Available Not Available No t Available amoxicillin 875 mg-potassium clavulanate 125 mg tablet TAKE 1 TABLET BY MOUTH EVERY 12 HOURS FOR 7 DAYS active Not Available Not Available N ot Available oxycodone 5 mg tablet TAKE 1 TABLET BY MOUTH EVERY 6 HOURS NEEDED FOR PAIN active Not Available Not Available No t Available hydrochlorot hiazide 12.5 mg tablet TAKE 1 TABLET BY MOUTH 1 TIME EACH DAY. active Not Available Not Available No t Available Vitals Date Recorded Oxygen saturation Oxygen saturation in Arterial blood by Pulse oximetry Respiratory rate Heart rate Systolic blood pressure Diastolic blood pressure Provider Name and Address Organization Details Last Updated DateTime 4 99 % 99 % 16 /min 78 /min 185 mm[Hg] 95 mm[Hg] Not Available [facility] - [facility] 4 16:54:44 Social History None recorded. Functional Status None recorded. Mental Status None recorded. Family History Nothing Reported. Medical History No medical history recorded. Past Encounters Encounter ID Performer Location Encounter Start Date Encounter Closed Date Diagnosis/Indication Diagnosis SNOMED-CT Code Diagnosis ICD10 Code [id number] Shailesh Leong MD Main - [facility] [address] [place] [address] 07/16/2024 16:38:11 07/16/2024 22:38:07 Strain of muscle of right lower leg [id number] S86.911A Health Concerns Section Related Observation LastModified by Organization Detai ls LastModified Time None Recorded Concern Status LastModified by Organization Details LastModified Time None Recorded Payers Encounter Date Sequence Insurance Name Policy Number Policy Aquino Covered Member ID Aquino Member ID Guarantor Name 07/16/2024 1 [facility] - DOS ON OR AFTER 2022 - DUAL ELIGIBLE - FPC OPTIONS AND ONE CARE (MEDICARE REPLACEMENT/ADV ANTAGE - HMO) Palomo Falcon [id number] Palomo Song Colon Notes Date Note Type Note Provider Name and Address Organization Details Recorded Time 07/16/2024 text/html HPI: Patient with complaints of left back of knee and calf pain. No swelling or redness. 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 but reports this pain is different. ................... ................... ................... ................... ................... ................... ................... ........ CRC Nurse Triage Notes (Romina Matamoros): Chief Complaints: Leg pain/swelling PMH: Hypertension Comments: CRC RN did not require any additional information to process this visit. ................... ................... ................... ................... ................... ................... ................... ........ President And Chief Commercial Officer Note From Raza Perez: Dispatched to stated address for a 69yo male with left lower leg pain. Pt states he has lower left calf pain when he bares weight. Pt denies any pain while seated. Denies any pain with palpation. Pt denies any pain with flexing and extending foot. Pt denies pain radiating anywhere else. Pt states pain has been going on for 3 days. Pt states he called today after he a visit to the store where he did more walking than he has done in the last few days. Pt denies any trauma to leg. Pt denies any h/a, dizziness, cp, sob or nausea. [facility] was consulted. Pt was informed of red flags and when to seek further medical attention. Pt found seated and speaking in full clear sentences with no signs of distress. AO and GCS-15. PERRL. Skin P/W/D. Airway open and lung sounds clear. ABD soft nontender. No notable swelling, discoloration or temperature changes noted to left leg. Pt able to bare full weight with mild discomfort. Pt has full range of motion of foot and knee. Rest of exam unremarkable. ................... ................... ................... ................... ................... ................... ................... ........ [facility] Consulted: Kudesia, Valmeek ................... ................... ................... ................... ................... ................... ................... ........ Disposition: Fulfilled Shailesh Leong MD [address] [facility],[address], [place], [address], [facility] [employer], [facility] 07/16/2024 18:58:20
--- OUTSIDE RECORDS SUMMARY | 2024-08-08 15:28 | XMS_ITS | Data Portability ---
Author Organization [employer], [place] [employer] Address [address] [place] [phone] Care Team Providers Care Multimedia Designer Name Role Phone [facility] OTHER [facility] OTHER Assessment Encounter Date Assessment Date Assessment LastModified by Organization Details LastModified Time 04/09/2022 04/09/2022 I have reviewed and agree with the assessment and plan as documented by the apartment hotel manager. I provided real-time medical direction for this encounter and was immediately available to provide additional phone-based assistance as needed. Patient seen for assessment of LE edema iso CKD. AVSS And well appearing per report w/ no dyspnea so doubt life threatening volume overload. Send labs per visit request and recommened close care team follow up. pallfather Not available 05/28/2022 17:50:59 07/16/2024 07/16/2024 service called for LLE pain [...] Not Available [facility] - [facility] 4 16:54:44 Date Recorded Respiratory rate Oxygen saturation Oxygen saturation in Arterial blood by Pulse oximetry Heart rate Respiratory rate Body temperature Heart rate Oxygen saturation Oxygen saturation in Arterial blood by Pulse oximetry Systolic blood pressure Diastolic blood pressure Systolic blood pressure Diastolic blood pressure Provider Name and Address Organization Details Last Updated DateTime 2 16 /min 98 % 98 % 83 /min 16 /min 97.9 [degF] 83 /min 98 % 98 % 127 mm[Hg] 85 mm[Hg] 127 mm[Hg] 85 mm[Hg] Not Available [facility] - production 2 15:46:13 Social History None recorded. Functional Status None recorded. Mental Status None recorded. Family History Nothing Reported. Medical History No medical history recorded. Past Encounters Encounter ID Performer Location Encounter Start Date Encounter Closed Date Diagnosis/Indication Diagnosis SNOMED-CT Code Diagnosis ICD10 Code [id number] Marcial Alcaraz MD Main - [facility] [address] [place] [phone] 04/09/2022 15:03:37 06/03/2022 11:17:21 Edema of lower extremity [id number] R60.0 [id number] Shailesh Leong MD Main - [facility] [address] [place] [phone] 07/16/2024 16:38:11 07/16/2024 22:38:07 Strain of muscle of right lower leg [id number] S86.911A Health Concerns Section Related Observation LastModified by Organization Detai ls LastModified Time None Recorded Concern Status LastModified by Organization Details LastModified Time None Recorded Advance Directives Directive None Recorded Payers Encounter Date Sequence Insurance Name Policy Number Policy Aquino Covered Member ID Aquino Member ID Guarantor Name 04/09/2022 1 [facility] - DOS PRIOR TO 2022 - DUAL ELIGIBLE (MEDICARE REPLACEMENT/ADV ANTAGE - HMO) Palomo Colon [id number] Palomo Song Colon 07/16/2024 1 [facility] - DOS ON OR AFTER 2022 - DUAL ELIGIBLE - PENITENTIARY OPTIONS AND ONE CARE (MEDICARE REPLACEMENT/ADV ANTAGE - HMO) Palomo Colon [id number] Palomo Song Colon Notes Date Note Type Note Provider Name and Address Organization Details Recorded Time 04/09/2022 text/html HPI: Patient with HTN CKD stage 3 , obesity,. 2 week history of increased bilat. lower leg edema pitting. Now with pain in both legs. ................... ................... ................... ................... ................... ................... ................... ........ CRC Nursing Assessment: Comments: CRC RN did not require any additional information to process this visit. ................... ................... ................... ................... ................... ................... ................... ........ Solderer Barrel Ribs Note: vitals, assessment, CMP ................... ................... ................... ................... ................... ................... ................... ........ Disposition: Fulfilled Marcial Alcaraz MD [address] [facility],[address], [place], [address], [facility] 05/28/2022 17:51:08 07/16/2024 text/html HPI: Patient with complaints of [...] ................... ................... ................... ................... ................... ................... ........ Solderer Barrel Ribs Note From Ana, Raza: Dispatched to stated address for a 69yo [...] any h/a, dizziness, cp, sob or nausea. [facility] was consulted. Pt was informed of red [...] ................... ................... ................... ................... ................... ................... ........ [facility] Consulted: Shailesh Leong ................... ................... ................... ................... ................... ................... ................... ........ Disposition: Fulfilled Shailesh Leong MD [address] [facility],[address], [place], [address], ELIF - VIVIAN, NAVID 07/16/2024 18:58:20
== END 2024-08-06 12:35 | disposition home or self-care (01) ==
LOC: HO.US 12:34
PROVIDERS: PCP General Practice; Visit Provider Nurse Practitioner Family
DX: N43.3 Hydrocele, unspecified (principal)
CPT/HCPCS: 76870

== ENCOUNTER 2024-08-15 06:11 | Outpatient (REF) | payer OTHER, SELFPAY ==
--- OUTSIDE RECORDS SUMMARY | 2024-08-15 06:14 | XMS_ITS | Continuity of Care Document ---
Author Organization [employer] [facility], [place] [employer] Address [address] [place] [phone] Care Team Providers Care Toolroom Attendant Name Role Phone [facility] OTHER [phone] [facility] OTHER Assessment Encounter Date Assessment Date Assessment [...] Diagnosis/Indication Diagnosis SNOMED-CT Code Diagnosis ICD10 Code [id number] Shailesh Leong MD Main - [facility] [address] [place] [address] 07/16/2024 16:38:11 07/16/2024 22:38:07 Strain of muscle of right lower leg [id number] S86.911A Health Concerns Section Related Observation LastModified by Organization Detai ls LastModified Time None Recorded Concern Status LastModified by Organization Details LastModified Time None Recorded Payers Encounter Date Sequence Insurance Name Policy Number Policy Aquino Covered Member ID Aquino Member ID Guarantor Name 07/16/2024 1 [facility] - DOS ON OR AFTER 2022 - DUAL ELIGIBLE - RETIREMENT OPTIONS AND ONE CARE (MEDICARE REPLACEMENT/ADV ANTAGE - HMO) Palomo Falcon [id number] Palomo Song Colon Notes Date Note Type [...] ................... ................... ................... ................... ................... ................... ........ Forest Fire Management Officer Note From Raza Perez: Dispatched to [...] any h/a, dizziness, cp, sob or nausea. [facility] [place]. Pt was informed of red [...] ................... ................... ................... ................... ................... ................... ........ [facility] Consulted: Kudesia, Valmeek ................... ................... ................... ................... ................... ................... ................... ........ Disposition: Fulfilled Shailesh Leong MD [address] [facility],[address], [place], [phone], [facility] - [employer], [facility] 07/16/2024 18:58:20
--- OUTSIDE RECORDS SUMMARY | 2024-08-15 06:14 | XMS_ITS | Data Portability ---
Author Organization [employer], [employer] Address [address] [place] [phone] Care Team Providers Care Data Programmer Name Role Phone [facility] OTHER [facility] OTHER Assessment Encounter Date Assessment Date Assessment LastModified by Organization Details LastModified Time 04/09/2022 04/09/2022 I have reviewed and agree with the assessment and plan as documented by the consumer studies professor. I provided real-time medical direction for this [...] [id number] Marcial Alcaraz MD Main - [facility] [address] [place] [phone] 04/09/2022 15:03:37 06/03/2022 11:17:21 Edema of lower extremity [id number] R60.0 [id number] Shailesh Leong MD Main - [facility] [address] [place] [phone] 07/16/2024 16:38:11 07/16/2024 22:38:07 Strain of muscle of right lower leg [id number] S86.911A Health Concerns Section Related Observation LastModified by Organization Detai ls LastModified Time None Recorded Concern Status LastModified by Organization Details LastModified Time None Recorded Advance Directives Directive None Recorded Payers Encounter Date Sequence Insurance Name Policy Number Policy Aquino Covered Member ID Aquino Member ID Guarantor Name 04/09/2022 1 [facility] - DOS PRIOR TO 2022 - DUAL ELIGIBLE (MEDICARE REPLACEMENT/ADV ANTAGE - HMO) Palomo Colon [id number] Palomo Song Colon 07/16/2024 1 [facility] - DOS ON OR AFTER 2022 - DUAL ELIGIBLE - DETENTION OPTIONS AND ONE CARE (MEDICARE REPLACEMENT/ADV ANTAGE - HMO) Palomo Colon [id number] Palomo Song Colon Notes Date Note Type [...] ................... ................... ................... ................... ................... ................... ........ Yarn Man Note: vitals, assessment, CMP ................... ................... ................... ................... ................... ................... ................... ........ Disposition: Fulfilled Marcial Alcaraz MD [address] [facility],[address], [place], [address], ELIF NAVID APRK 05/28/2022 17:51:08 07/16/2024 text/html HPI: Patient with [...] ................... ................... ................... ................... ................... ................... ........ Yarn Man Note From Ana, Raza: Dispatched to stated [...] any h/a, dizziness, cp, sob or nausea. [facility] was consulted. Pt was informed [...] ................... ................... ................... ................... ................... ................... ........ [facility] Consulted: Shailesh Leong ................... ................... ................... ................... ................... ................... ................... ........ Disposition: Fulfilled Shailesh Leong MD [address] [facility],[address], [place], [phone], ELIF - VIVIAN, NAVID 07/16/2024 18:58:20
[2024-08-15 07:35] LABS: Alanine Aminotransferase 41 U/L (0-40); Albumin Level 4.4 g/dL (3.5-5.0); Alkaline Phosphatase 61 U/L (39-117); Anion Gap 12 (12-20); Aspartate Amino Transferase 30 U/L (5-37); Bilirubin Total 0.7 mg/dL (0.0-1.0); Blood Urea Nitrogen 27 mg/dL (9-16); Calcium 9.3 mg/dL (8.4-10.2); Carbon Dioxide 26 mmol/L (22-29); Chloride 106 mmol/L (96-108); Estimated Glomerular Filt Rate 43; Glucose Random 122 mg/dL (60-115); Potassium 3.9 mmol/L (3.3-5.1); Sodium 140 mmol/L (135-145)
[2024-08-21 19:48] LABS: CK-BB None Detected (None Detected); CK-MB 0 % (<5); CK-MM 90 % (95-100); Creatine Kinase,Total,Serum 102 U/L (44-196)
== END 2024-08-15 06:12 | disposition home or self-care (01) ==
LOC: HO.LAB 06:11
PROVIDERS: PCP General Practice; Visit Provider Internal Medicine
DX: M79.661 Pain in right lower leg (principal); M79.662 Pain in left lower leg
CPT/HCPCS: 36415; 80053; 82552

== ENCOUNTER 2024-08-21 13:28 | Outpatient (AMB) | payer OTHER, SELFPAY ==
--- NOTE | 2024-08-21 13:35 | A.OFFVIS_ITS ---
Intake Visit Reasons: 2m/US Intake Note: Patient presents for follow up on: nephrolithiasis and ultrasound results Imaging Completed: 08/06/24 Urology Medications: Vitamin B6, finasteride Blood Thinner: none Leasing Sales Consultant Required: No Accompanied by: Self / Same As Patient Allergies No Known Allergies Allergy (Verified 08/21/24 14:27) Medication List - Last Reconciled 08/21/24 by BO Rg-JAH acetaminophen (Tylenol) 325 mg PO Q4H PRN acetaminophen ER (Mapap Arthritis Pain) 650 mg PO Q8H PRN ergocalciferol (vitamin D2) 1,250 mcg PO QWEEK finasteride 5 mg PO DAILY 90 days fluticasone propionate 50 mcg/actuation sprays intranasal lisinopril-hydrochlorothiazide 10-12.5 mg 1 tab PO DAILY pyridoxine (vitamin B6) 100 mg PO DAILY 90 days tamsulosin 0.4 mg PO BEDTIME 90 days HPI Comments Details: Palomo is a pleasant 69 year-old male patient of Dr. Lundy. He has a past medical history of hyperlipidemia, hypertension, GALLO, obesity, and cervical radiculopathy. He presents to the office today for a follow up of his lower urinary tract symptoms, nephrolithiasis and scrotal discomfort. Of note, patient was seen approximately 2 months ago at which time we discussed further treatment options of was left-sided hydrocele. In discussion with the patient today he reports he would like to move forward with surgical intervention of left-sided hydrocele. He reports he continues with left-sided scrotal discomfort and feels this is affecting his ADLs. Previous workup has included a scrotal ultrasound that noted bilateral hydroceles left side greater than right. However, patient denies any bothersome to right testicle and or right side of the scrotum. In assessment of the patient today the penis is uncircumcised and moderate left hydrocele is palpated otherwise no open areas, lesions, and or drainage noted to the area. He also has a longstanding history of nephrolithiasis. Most recent renal ultrasound 05/22 notes right kidney with no calculi or hydronephrosis. Benign-appearing renal cysts measuring up to 1.1 cm that require no additional follow-up imaging per radiology report. Left kidney with no hydronephrosis. Benign-appearing renal cysts measuring 4.4 cm that require no additional follow-up per radiology report. Nonobstructing stones measuring 3 mm and 2 mm in the mid pole. He reports compliance with finasteride and Flomax as prescribed. He denies any bothersome lower urinary tract symptoms. He reports be happy with current voiding parameters. He denies urinary urgency, urinary frequency, incontinence, nocturia, hematuria, dysuria, foul smelling urine, flank pain, fever, and or chills. In office urinalysis results reviewed with the patient today. PSAs are as follows: 08/15 2.2, 04/20 2.7, 06/21 2.3 He also reports compliance with vitamin B6 and adequate hydration. He otherwise offers no other issues or concerns at this time. 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 Review of Systems Const Reports as per HPI Eyes Reports no additional complaints ENT Reports no additional complaints Card Reports as per HPI Resp Reports as per HPI GI Reports no additional complaints Reports as per HPI Musc Reports no additional complaints Neuro Reports no additional complaints Psych Reports no additional complaints Endo Reports no additional complaints Ezekiel/Lymph Reports no additional complaints Aller/Immun Reports no additional complaints Physical Exam Const General: cooperative, healthy appearing, comfortable, no acute distress, well developed, alert and awake Nutritional Appearance: overweight Orientation/consciousness: patient oriented x3 Limitations: no limitations HEENT Head: Yes normal to inspection, Yes normocephalic and Yes atraumatic Ears: hearing grossly normal bilaterally Eyes General: appearance normal, both eyes and all related structures Neck Neck: Yes normal visual inspection and Yes trachea midline Chest Chest palpation & inspection: normal inspection of the chest Resp Effort & Inspection: normal respiratory effort and able to speak in complete sentences Cardio Rate: regular rate GI Inspection: Yes normal to inspection General: Yes no CVA tenderness Back/Spine/Pelvis Back: no CVA tenderness Skin General skin exam: no rashes or lesions noted Neuro General: patient oriented x3 Extrem General: Yes normal to inspection Psych Appearance: grossly normal and well kempt Mental Status: mental status grossly normal Speech and movement: Normal speech and movement present and Clear speech present Affect: normal affect Attitude: cooperative Thought process: Normal thought process present Thought content: Normal thought content present Insight: Fair insight present (Psych) Judgement: Fair judgement present (Psych) Office Procedures Post Void Residual Post Residual Void Post Void Residual (PVR): 28 [id number] Void Residual by ultrasound Results AMB Urinalysis, Automated UA Leukoctes 0 Vesna/uL Last Edit by [employer] on 08/21/24 14:13 UA Nitrite Last Edit by [employer] on 08/21/24 14:13 UA Urobilinogen 0.2 mg/dL Last Edit by [employer] on 08/21/24 14:13 UA Protein 15 mg/dL Last Edit by [employer] on 08/21/24 14:13 UA pH 5.5 Last Edit by [employer] on 08/21/24 14:13 UA Blood 0 Ray/uL Last Edit by [employer] on 08/21/24 14:13 UA Specific [place] 1.030 Last Edit by [employer] on 08/21/24 14:13 UA Ketone Last Edit by [employer] on 08/21/24 14:13 UA Bilirubin 0 mg/dL Last Edit by [employer] on 08/21/24 14:13 UA Glucose 0 mg/dL Last Edit by [employer] on 08/21/24 14:13 Results Reviewed Results Reviewed: Laboratory Last Values Urine pH (Auto) 5.5 08/21/24 14:12 Specific [place] (Auto) 1.030 08/21/24 14:12 Urine Protein (Auto) 15 mg/dL 08/21/24 14:12 Glucose (UA)(Auto) 0 mg/dL 08/21/24 14:12 Urine Blood (Auto) 0 Ray/uL 08/21/24 14:12 Urine Bilirubin (Auto) 0 mg/dL 08/21/24 14:12 Urine Urobilinogen (Auto) 0.2 mg/dL 08/21/24 14:12 Leukocyte Esterase (Auto) 0 Vesna/uL 08/21/24 14:12 Assessment & Plan Assessment & Plan (1) Hydrocele: Code(s): N43.3 - Hydrocele, unspecified Category: Medical (2) Renal cyst: Code(s): N28.1 - Cyst of kidney, acquired Category: Medical (3) Recurrent nephrolithiasis: Code(s): N20.0 - Calculus of kidney Category: Medical (4) Weak urinary stream: Code(s): R39.12 - Poor urinary stream Category: Medical Plan: Risks, benefits and alternatives to therapy were discussed. These include but are not limited to infection, bleeding, damage to local organs and tissues, need for further interventions. ? Anesthetic risks regarding cardiac arrhythmia, blood clots, and potential mortality were discussed. The patient understands the typical recovery time and the outpatient nature of the procedure. After consideration of these risks the patient gives full informed consent and they wish to move ahead with the procedure. Plan In office urinalysis results reviewed with the patient today; as noted above. PVR 28 mL. He currently denies any bothersome urinary issues. He reports be happy with current voiding parameters. Will continue with surveillance monitoring of nephrolithiasis. Continue vitamin B6, finasteride, and Flomax as prescribed. We discussed further intervention of left-sided hydrocele with in office drainage verses surgical intervention; risks and benefits of these interventions were discussed. All questions were answered. Will schedule for left-sided hydrocelectomy. Follow-up per doctor's orders; or sooner with any issues, concerns, and or questions. Orders: Orders AMB Urinalysis Automated Today Z13.9 - Encounter for screening, unspecified AMB Post Void Residual by ultrasound Today R39.12 - Poor urinary stream Patient Instructions: The patient had an opportunity to ask questions regarding the treatment plan. All questions were answered. Physical exam, labs, and imaging were discussed and reviewed in detail. As well as risks, benefits, and discussion of treatment choices. No major barriers to understanding were identified. The patient expressed understanding and agreement with the above treatment plan. The patient was made aware they should contact our office by phone for worsening of their current condition, the appearance of new symptoms, or with any questions or concerns. Compliance is encouraged with any medications and follow up testing that is ordered. It is a privilege to be allowed the opportunity to participate in? your urological care.? Again, if you have any questions or co ncerns If you have any questions or concerns please do not hesitate to contact me. The office is [phone]. This note is constructed using voice recognition software. While every effort has been made to ensure accuracy steersman errors may have been included. Yours sincerely, WEI Rg Coding Level of Care Code Est Pt Level 4 (47901) Diagnoses Hydrocele N43.3 Renal cyst N28.1 Recurrent nephrolithiasis N20.0 Weak urinary stream R39.12 CPT Codes Post Residual Void - PVR CPT Code: 60854-Hftm Void Residual by ultrasound ([id number])
== END 2024-08-21 14:07 | disposition home or self-care (01) ==
PROVIDERS: PCP General Practice; Visit Provider Nurse Practitioner Family
DX: N43.3 Hydrocele, unspecified (principal); N28.1 Cyst of kidney, acquired; N20.0 Calculus of kidney; R39.12 Poor urinary stream; Z13.9 Encounter for screening, unspecified
CPT/HCPCS: 99214

== ENCOUNTER → 2024-08-21 13:28 | Outpatient (BNVA) | payer OTHER, SELFPAY | PROVIDERS: PCP General Practice; Visit Provider Nurse Practitioner Family | DX: N43.3 Hydrocele, unspecified (principal); N28.1 Cyst of kidney, acquired; N20.0 Calculus of kidney; R39.12 Poor urinary stream | CPT/HCPCS: 51798; 81003; 99212 ==

== ENCOUNTER 2024-11-13 11:54 | Day surgery (SDC) | payer OTHER, SELFPAY ==
--- OUTSIDE RECORDS SUMMARY | 2024-09-11 12:56 | XMS_ITS | Continuity of Care Document ---
Author Organization [facility] [place] - [employer] Address [address] [place] [phone] Care Team Providers Care Signalman Name Role Phone [facility] OTHER [phone] [facility] OTHER Assessment Encounter Date Assessment Date Assessment [...] Diagnosis/Indication Diagnosis SNOMED-CT Code Diagnosis ICD10 Code Diagnosis Note [id number] Shailesh Leong MD [facility] - [address] [phone] 07/16/2024 16:38:11 07/16/2024 22:38:07 Strain of muscle of right lower leg [id number] S86.911A Health Concerns Section Related Observation LastModified by Organization Detai ls LastModified Time None Recorded Concern Status LastModified by Organization Details LastModified Time None Recorded Payers Encounter Date Sequence Insurance Name Policy Number Policy Aquino Covered Member ID Aquino Member ID Guarantor Name 07/16/2024 1 [facility] - DOS ON OR AFTER 2022 - DUAL ELIGIBLE - LONG TERM OPTIONS AND ONE CARE (MEDICARE REPLACEMENT/ADV ANTAGE - HMO) Palomo Falcon [id number] Palomo Song Colon Notes Date Note Type [...] ................... ................... ................... ................... ................... ................... ........ Pipeline Operator Note From Raza Perez: Dispatched to stated [...] any h/a, dizziness, cp, sob or nausea. [facility] was consulted. Pt was informed of red [...] ................... ................... ................... ................... ................... ................... ........ [facility] Consulted: Shailesh Leong ................... ................... ................... ................... ................... ................... ................... ........ Disposition: Fulfilled Shailesh Leong MD [address] [facility],[address], [place], [address], [place] - [place] 07/16/2024 18:58:20
--- OUTSIDE RECORDS SUMMARY | 2024-09-11 12:56 | XMS_ITS | Data Portability ---
Author Organization [employer] [place], [place] in - [employer] Address [address] [place] [id number] Care Team Providers Care Airframe Design Engineer Name Role Phone [facility] OTHER [phone] [facility] OTHER Assessment Encounter Date Assessment Date Assessment LastModified by Organization Details LastModified Time 04/09/2022 04/09/2022 I have reviewed and agree with the assessment and plan as documented by the platform power technician. I provided real-time medical direction for this [...] SNOMED-CT Code Diagnosis ICD10 Code Diagnosis Note [id number] Marcial Alcaraz MD [facility] [address] [place] [phone] 04/09/2022 15:03:37 06/03/2022 11:17:21 Edema of lower extremity [id number] R60.0 [id number] Shailesh Leong MD [facility] [address] [place] [phone] 07/16/2024 16:38:11 07/16/2024 22:38:07 Strain of muscle of right lower leg [id number] S86.911A Health Concerns Section Related Observation LastModified by Organization Detai ls LastModified Time None Recorded Concern Status LastModified by Organization Details LastModified Time None Recorded Advance Directives Directive None Recorded Payers Encounter Date Sequence Insurance Name Policy Number Policy Aquino Covered Member ID Aquino Member ID Guarantor Name 04/09/2022 1 [facility] - DOS PRIOR TO 2022 - DUAL ELIGIBLE (MEDICARE REPLACEMENT/ADV ANTAGE - HMO) Palomo Colon [id number] Palomo Song Colon 07/16/2024 1 [facility] - DOS ON OR AFTER 2022 - DUAL ELIGIBLE - CUSTODIAL OPTIONS AND ONE CARE (MEDICARE REPLACEMENT/ADV ANTAGE - HMO) Palomo Colon [id number] Palomo Song Colon Notes Date Note Type [...] ................... ................... ................... ................... ................... ................... ........ Truck Trailer Mechanic Note: vitals, assessment, CMP ................... ................... ................... ................... ................... ................... ................... ........ Disposition: Fulfilled Marcial Alcaraz MD [address] [facility], [place], [address], [facility] [employer] 05/28/2022 17:51:08 07/16/2024 text/html HPI: Patient with [...] ................... ................... ................... ................... ................... ................... ........ Truck Trailer Mechanic Note From Raza Perez: Dispatched to stated [...] any h/a, dizziness, cp, sob or nausea. [facility] was consulted. Pt was informed of red [...] ................... ................... ................... ................... ................... ................... ........ [facility] Consulted: Shailesh Leong ................... ................... ................... ................... ................... ................... ................... ........ Disposition: Fulfilled Shailesh Leong MD [address] [facility],[address], [place], [phone], [place], [place] 07/16/2024 18:58:20
[2024-11-13] VITALS (10 sets, daily range): BP systolic 121–134; BP diastolic 62–73; PULSE 63–78; RESP 12–16; TEMP 36.1–36.7; O2SAT 95–99; BMI 33.1
--- NOTE | 2024-11-13 12:52 | P.CONAN_ITS ---
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) Right carpal tunnel syndrome (Acute) Tremor (Acute) Dystonia (Acute) Spasmodic torticollis (Acute) Cervicalgia (Acute) Obstructive sleep apnea (Acute) Bleeding hemorrhoids (Acute) Hyperlipidemia (Acute) HTN (hypertension) (Acute) Obesity (Acute) Past Medical History Medical History Tremor Renal cyst Back pain Cervical radiculopathy GALLO on CPAP Bleeding hemorrhoids Hyperlipidemia HTN (hypertension) Obesity Family History Family History Sister Diabetes Son GALLO (obstructive sleep apnea) Surgical History Surgical History Hx of cataract surgery Hx of hernia repair Hx of cholecystectomy Hx of tonsillectomy Hx of carpal tunnel repair History of Problems with Anesthesia: No Social History Social History Do you presently have visiting nurse or other home services: No Alcohol intake: never Patient Tobacco Use Status: Never used Tobacco Use of substances other than those prescribed or required for medical reasons: No Have you been hit, kicked, punched, or otherwise hurt by someone within the past year? 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 Meds Allergies Allergy/AdvReac Type Severity Reaction Status Date / Time No Known Allergies Allergy Verified 11/13/24 12:29 Home Medications ?Medication ?Instructions ?Recorded ?Confirmed ?Last Taken ?Type fluticasone propionate 50 1 spray intranasal DAILY 12/23/21 11/13/24 Unknown History mcg/actuation nasal spray,suspension ergocalciferol (vitamin D2) 1,250 1,250 mcg PO QWEEK 06/29/22 11/13/24 Unknown History mcg (50,000 unit) capsule lisinopril 10 1 tab PO DAILY 06/29/22 11/13/24 Unknown History mg-hydrochlorothiazide 12.5 mg tablet acetaminophen 325 mg capsule 650 mg PO Q6H PRN pain 11/09/24 11/13/24 Unknown History Exam Height,Weight and Vital Signs: Height 5 ft 8.5 in Weight 100.2 kg Last Vital Signs Temp 98.1 F 11/13/24 12:40 Pulse 75 11/13/24 12:40 Resp 16 11/13/24 12:40 BP 123/70 11/13/24 12:40 Pulse Ox 95 11/13/24 12:40 O2 Del Method Room Air 11/13/24 12:40 Airway Mallampati Class: III TM Dist: >3cm Neck ROM: Full Partial: Upper and Lower Loose/Missing/Broken Teeth: Yes, Upper and Lower Heart: RRR Lungs: CTA Assessment and Plan Assessment Anesthesia Assessment: Anesthesia Plan Discussed and Chart Reviewed Final Anesthetic Review History of Problems with Anesthesia: No NPO: Yes ASA Class: III Final Preanesthetic Review: Meds/Allgs Chart Reviewed, Consent Obtained/Reviewed and Anes Risks/Benef Reviewed Patient Risk: Intermediate Procedure Risk: Low Anesthetic Plan Anesthetic Plan: GA Disposition: Standard PACU
--- NOTE | 2024-11-13 13:45 | MHC.SHP ---
Pre-Procedural Eval Section A - 24 Hr Update-Section A only Date of Service: 11/13/24 The patient is an INPATIENT: No The patient has been examined within 24 hours of the surgical procedure. The History & Physical has been completed within 30 days and I have reviewed it.: Yes Section B - Complete if H&P > 30 days Chief Complaint: Hydrocele, unspecified Allergies: Allergies Allergy/AdvReac Type Severity Reaction Status Date / Time No Known Allergies Allergy Verified 11/13/24 12:29 Plan Diagnosis/Plan: Unchanged I have reviewed the history and physical and performed a pertinent physical examination on my patient. No changes have occurred unless specified. Left Hydrocelectomy, hydrocele repair. Time Spent With Patient Time: Total time managing care of this patient today ____ minutes.
[2024-11-13] MEDS: ceFAZolin Sodium/Dextrose,Iso 2 GM/50 ML PIGGYBACK IV (14:00)
--- NOTE | 2024-11-13 15:08 | W.PM.OPN ---
Operative Note Operative Note Date of Service: 11/13/24 Narrative: PreOperative Diagnosis:? ? left hydrocele Post Operative Diagnosis: left hydrocele Procedure: Left hydrocele repair, removal of appendage of the testis Surgeon:?Dr Johnny Penny Anesthesia:? General Procedure: After informed consent was verified the patient was brought to the operating room and placed in a supine position.? Anesthesia was performed per protocol. The patient was prepped and draped in the usual sterile fashion. Safety pause time-out was performed. Antibiotics confirmed. On inspection, there was fullness along the upper portion of the scrotum along the inguinal area. A marker was used to mar the median raphe. Attention was taken to the left hemiscrotum. A horizontal incision was made through the skin with a 15 blade knife, cautery was used to incise the dartos fascia, the plane between the dartos fascia and the tunical vaginalis was developed with blunt dissection. the testicle is delivered into the operative field. The gubernaclar attachments are taken down with electrocautery. The tunica vaginalis was opened with sharp dissection vertically in the midline, small incision into the hydrocele sac and the hydrocele fluid is drained and suctioned, the hydrocele fluid was clear yellow. The fluid was sent to pathology. The hydrocele was small, The hydrocele sac was opened the edges were oversewn with 3-0 chromic. Cautery was used for hemostasis. Evaluation of the testis noted an appendage of the testis approximately 5-6mm which was removed using cautery at the base and sent to pathology. There was fullness palpated along the cord, there was no significant varicoceles reported on ultrasound, therefore further surgical dissection along the cord was not felt to be indicated at this time and further evaluation on follow up will be done. The dartos fascia was closed with running locking 3-0 chromic and the skin was closed with interrupted 3-0 chromic there was good hemostasis noted. The patient tolerated the procedure well and was transferred to the recovery area upon completion. Complications: None EBL: minimal (<5 mL) Drains: None
[2024-11-13] MEDS: fentaNYL citrate/PF 100 MCG/2 ML VIAL 25 MCG IVPUSH (15:47)
[2024-11-13] MEDS: oxyCODONE HCl Immed Release 5 MG TABLET PO (16:00)
== END 2024-11-13 16:30 | disposition home or self-care (01) ==
PROVIDERS: PCP General Practice; Visit Provider Urology
PROC: (CPT 55060; principal; 2024-11-13 13:30)
DX: N43.3 Hydrocele, unspecified (principal); N44.03 Torsion of appendix testis; G47.33 Obstructive sleep apnea (adult) (pediatric)
CPT/HCPCS: 55000; 54512; 88112; 88302; 88304; 88305; J0131; J0690; J1100; J2003; J2405; J2704; J2795; J3010

== ENCOUNTER → 2024-11-13 11:54 | Outpatient (BNV) | payer OTHER, SELFPAY | PROVIDERS: PCP General Practice; Visit Provider Urology | DX: N43.3 Hydrocele, unspecified (principal) | CPT/HCPCS: 55040 ==

== ENCOUNTER → 2024-11-16 09:37 | Outpatient (BNVA) | payer OTHER, SELFPAY | PROVIDERS: PCP General Practice; Visit Provider Urology ==

== ENCOUNTER → 2024-11-23 10:46 | Outpatient (BNVA) | payer OTHER, SELFPAY | PROVIDERS: PCP General Practice; Visit Provider Urology ==

== ENCOUNTER 2024-11-28 14:54 | Outpatient (REF) | payer OTHER, SELFPAY ==
--- NOTE | ~2024-11-28 | US_ITS ---
EXAMINATION: US SCROTUM CLINICAL INFORMATION: Left testicular swelling status post hydrocele repair 11/13/2024. Rule out hernia. COMPARISON: None available. TECHNIQUE: A sonogram of the scrotum was performed assessing forbes-scale appearance and color Doppler flow. Spectral Doppler analysis of the arterial and venous flow were performed in the testes bilaterally. FINDINGS: RIGHT: Right testicle measures 4.8 x 2.3 x 3.6 cm, volume 20.5 mL. No focal testicular parenchymal lesions are visualized. Spectral Doppler analysis of the arterial and venous flow is normal in the right testis. Right epididymal head is normal in size. There is a moderate size right hydrocele with echogenic debris.. There is a very small right varicocele. Right epididymal Doppler flow is normal. There is a right inguinal fat-containing hernia present extending into the inguinal canal, with diastases measuring 3.4 cm. LEFT: Left testicle measures 4.5 x 2.5 x 3.5 cm, volume 18.4 mL. No focal testicular parenchymal lesions are visualized. Spectral Doppler analysis of the arterial and venous flow is normal in the left testis. Left epididymal head is normal in size. There is a small 3 mm epididymal head cyst. Left epididymal Doppler flow is normal. There is a large left septated hydrocele, with the larger aspect measuring 5.8 x 3.3 x 5.6 cm. There is associated mild skin thickening. There is no left varicocele. US/US scrotum IMPRESSION: 1. Normal testicles bilaterally. No significant epididymal abnormality. 2. Small right varicocele. 3. Right inguinal fat-containing hernia suspected. Diastases measures approximately 3.4 cm. 4. Moderate size right hydrocele with echogenic debris. 5. Complex large left hydrocele with septations. Electronically signed by: Darrius Mckay MD 11/28/2024 04:13 PM EDT
--- OUTSIDE RECORDS SUMMARY | 2024-11-28 17:28 | XMS_ITS | Data Portability ---
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 He is not a candidate for the inspire as his AHI was outside of the range of our implant program. In the past he has tolerated CPAP which is still the gold standard treatment and I encouraged him to continue to manage his sleep disordered breathing with CPAP through [facility]. To help with his nasal congestion associated with CPAP use, ipratropium nasal spray was recommended. It helps regulate the blood flow to reduce congestion from vasomotor rhinitis [email or web address] Not available 05/18/2024 15:35:26 Plan of Treatment Reminders Order Date Submit Date Provider Last Modified By Organization Details Last Modified Time Details Appointments None recorded. Lab None recorded. Referral None recorded. Procedures None recorded. Surgeries None recorded. Imaging None recorded. Medication Orders ipratropium bromide 21 mcg (0.03 %) nasal spray 2023 024 [id number], [address] [facility], [place], [address], 15:34:19 Patient TargetsNo targets recorded. Patient InstructionsNo instructions recorded. Reason for Referral None Reported. Results Created Date Observation Date Name Description Value Unit Range Abnormal Flag Note LastModifiedBy Organization Detail LastModifiedTime 05/03/2011/30/2023 sleep study , diagn ostic (PROC ) No observ ation record ed. [email or web address] Not Available 12/2023 16:15:27 Result Notes None recorded. Problems Name Problem SNOMED Code Status Onset Date Resolution Date Notes Provider Name and Address Organization Details Recorded Time Obstructiv e sleep apnea syndrome 52610299 Active 2021 Obstructive sleep apnea (adult) (pediatric) ; Note: Date Diagnosed: 06/18/2022 10:07 AM (G47.33) PALOMO JUNIOR MD [address] [address], [place], [phone], [facility] - [facility] 4 19:56:08 Vasomotor rhinitis 1300648 Active 2023 PALOMO JUNIOR MD [address] [address], [place], [address], [facility] 4 15:34:25 Problem Notes None recorded. Procedures Surgical History None recorded. Imaging Results Imaging Date Name Status LastModified by [facility] Details LastModified Time 11/30/2023 sleep study, diagnostic (PROC) completed [email or web address] Information not available 05/03/2024 16:15:27 Procedure Notes None recorded. Medical Equipment None Reported. Allergies No known drug allergies Medications Name Sig Start Date Stop Date Status Note LastModified by Organization Details LastModified Time cyclobenz aprine 10 mg tablet active Medicati on ID: [id number] B rand Name: cycloben zaprine Send Method: E-Prescr ibed Sub s Allowed: subs OK Medic ationGen ericName : cycloben zaprine Not Available Not Available Not Available amoxicill in 500 mg capsule TAKE 1 CAPSULE BY MOUTH EVERY 6 HOURS UNTIL FINISHED 05/18 completed Not Available Not Available Not Available neomycin- polymyxin -hydrocor t 3.5 mg/mL-10, 000 unit/mL-1 % ear solution PUT 3 DROPS INTO AFFECTED EAR(S) 4 TIMES DAILY. 05/18 completed Not Available Not Available Not Available atorvasta tin 80 mg tablet active Medicati on ID: [id number] B rand Name: atorvast atin Sen d Method: E-Prescr ibed Sub s Allowed: subs OK Medic ationGen ericName : atorvast atin Not Available Not Available Not Available acetamino phen 325 mg tablet active Not Available Not Available No t Available fexofenad ine 60 mg tablet TAKE 1 TABLET BY MOUTH IF NEEDED EACH DAY (ALLERGI ES). active Not Available Not Available No t Available ibuprofen 800 mg tablet TAKE 1 TABLET BY MOUTH EVERY 8 HOURS NEEDED FOR PAIN active Not Available Not Available No t Available prednison e 20 mg tablet TAKE 2 TABLETS BY MOUTH EVERY DAY FOR 5 DAYS active Not Available Not Available No t Available propranol ol ER 60 mg capsule,2 4 hr,extend ed release TAKE 1 CAPSULE (60 MG) BY MOUTH IN THE MORNING. FOR TREMORS active Not Available Not Available No t Available naproxen 250 mg tablet active Not Available Not Available Not Available amlodipin e 5 mg tablet active Medicati on ID: [id number] B rand Name: jarod high Send Method: E-Prescr ibed Sub s Allowed: subs OK Medic ationGen ericName : cheodidameon high Not Available Not Available Not Available acetamino phen 500 mg tablet TAKE 1 TABLET BY MOUTH EVERY 4 TO 6 HOURS NEEDED active Not Available Not Available No t Available oxycodone -acetamin ophen 5 mg-325 mg tablet TAKE 1 TO 2 TABLETS EVERY 4 TO 6 HOURS NEEDED FOR PAIN active Not Available Not Available No t Available hydrocort isone 2.5 % topical cream with perineal applicato r APPLY TO RECTUM AFTER BOWEL MOVEMENT active Not Available Not Available No t Available tamsulosi n 0.4 mg capsule TAKE 1 CAPSULE BY MOUTH EVERYDAY AT BEDTIME active Not Available Not Available No t Available neomycin- polymyxin -dexameth 3.5 mg/mL-10, 000 unit/mL-0 .1% eye drops INSTILL 1 DROP INTO BOTH EYES FOUR TIMES A DAY USE FOR 2 WEEKS THEN STOP active Not Available Not Available No t Available gabapenti n 100 mg capsule TAKE 1 CAPSULE BY MOUTH THREE TIMES A DAY active Not Available Not Available No t Available ergocalci ferol (vitamin D2) 1,250 mcg (50,000 unit) capsule TAKE 1 CAPSULE (50,000 UNITS TOTAL) BY MOUTH ONCE WEEKLY active Not Available Not Available No t Available azelastin e 137 mcg (0.1 %) nasal spray SPRAY 2 SPRAYS INTO EACH NOSTRIL TWICE A DAY FOR 28 DAYS active Not Available Not Available No t Available lisinopri l 10 mg-hydroc hlorothia zide 12.5 mg tablet TAKE 1 TABLET BY MOUTH EVERY DAY active Not Available Not Available No t Available ibuprofen 600 mg tablet TAKE 1 TABLET BY MOUTH EVERY 6 TO 8 HOURS NEEDED active Not Available Not Available No t Available fluticaso ne propionat e 50 mcg/actua tion nasal spray,michael pension SPRAY 2 SPRAYS INTO EACH NOSTRIL EVERY DAY active Not Available Not Available No t Available ipratropi um bromide 21 mcg (0.03 %) nasal spray SPRAY 2 SPRAYS TWICE A DAY BY INTRANAS AL ROUTE FOR 30 DAYS, FOR NASAL CONGESTI ON. active Not Available Not Available No t Available finasteri de 5 mg tablet TAKE 1 TABLET BY MOUTH EVERY DAY active Not Available Not Available No t Available amoxicill in 875 mg-potass ium clavulana te 125 mg tablet TAKE 1 TABLET EVERY 12 HOURS DAILY 05/18 completed Not Available Not Available Not Available Mapap Arthritis Pain 650 mg tablet,ex tended release active Medicati on ID: [id number] B rand Name: Mapap Arthriti s Pain Sen d Method: E-Prescr ibed Sub s Allowed: subs OK Medic ationGen ericName : Mapap Arthriti s Pain Not Available Not Available Not Available chlorhexi dine gluconate 0.12 % mouthwash RINSE MOUTH WITH 15ML (1 CAPFUL) FOR 30 SECONDS IN MORNING AND EVENING AFTER BRUSHING , THEN SPIT active Not Available Not Available No t Available hydrochlo rothiazid e 12.5 mg tablet active Medicati on ID: [id number] B rand Name: hydrochl orothiaz oscar Send Method: E-Prescr ibed Sub s Allowed: subs OK Medic ationGen ericName : hydrochl orothiaz oscar Not Available Not Available Not Available cholecalc iferol (vitamin D3) 50 mcg (2,000 unit) capsule TAKE 1 CAPSULE (50 MCG) BY MOUTH IN THE MORNING active Not Available Not Available No t Available Vitals Date Recorded Body height Body mass index (BMI) Body weight Provider Name and Address Organization Details Last Updated DateTime 05/18/2024 172.72 cm 32.7 kg/m2 38116.36 g Maddy Jones [place] - [facility] 05/18/2024 15:18:08 Social History None recorded. Functional Status None recorded. Mental Status None recorded. Family History Nothing Reported. Medical History Condition Response Hypertension Y Kidney Disease Y Sleep Disorder Y Past Encounters Encounter ID Performer Location Encounter Start Date Encounter Closed Date Diagnosis/Indication Diagnosis SNOMED-CT Code Diagnosis ICD10 Code Diagnosis Note [id number] PALOMO JUNIOR MD [facility] [address] [facility] [address] 05/18/2024 14:53:41 05/21/2024 07:26:01 Obstructive sleep apnea syndrome 98751779 G47.33 Vasomotor rhinitis 48956 03 J30.0 Health Concerns Section Related Observation LastModified by Organization Detai ls LastModified Time None Recorded Concern Status LastModified by Organization Details LastModified Time None Recorded Advance Directives Directive None Recorded Payers Encounter Date Sequence Insurance Name Policy Number Policy Aquino Covered Member ID Aquino Member ID Guarantor Name 05/18/2024 1 [facility] - DOS ON OR AFTER 2022 - MEDICARE [place]VANTAGE [place] (MEDICARE REPLACEMENT/ADV ANTAGE - PPO) Palomo Song Colon [id number] Palomo Song Colon Notes Date Note Type Note Provider Name and Address Organization Details Recorded Time 05/18/2024 text/html OSA4/11/19 PSG, BMCBMI 33AHI 85central & mixed 3184 PV 06/18/22 Maday - GALLO discussion - did not recommend INSPIRE as he was tolerating CPAPCPAP use for 20+ yrsfeels his sleep is disrupted with cold or warm airhx of UPPP with Dr Ramirez in 2002PSG preop was MAXIMILIANO 59, postop was 64had home PSG in 02/15/16 AHI 56 with oxygen davion of 81% (full report not located)uses the CPAP every night, feels improvement when he tolerates and uses it.his son Javy got the INSPIRE and he did well with it.weight 220, 5' 8.5 with use of CPAP the nasal congestion wakes him up PALOMO JUNIOR MD [address] [facility],[address] [address], [place], [address], [facility] - [facility] 05/18/2024 15:35:38
--- OUTSIDE RECORDS SUMMARY | 2024-11-28 17:28 | XMS_ITS | Encounter Summary ---
Author Organization [employer] Address [address] [facility] [address] [place] [address] Care Team Providers Care Mangle Catcher Name Role Phone Christine Lundy MD Primary Care Provider [phone] Encounter Details Date Type Department Care Team (Late st Contact Info) Description 12/29/2022 Orders Only [facility] [address] [place] [address] Christine Lundy MD [address] [place], [place] [phone] Social History Tobacco Use Types Packs/Day Years Used Date Smoking Tobacco: Never Smokeless Tobacco: Never Alcohol Use Standard Drinks/Week Comments Never 0 (1 standard drink = 0.6 oz pur e alcohol) Sex and Gender Information Value Date Recorded Sex Assigned at Male 06/28/2022 10:14 AM EDT Legal Sex Male 10:14 AM EDT Gender Identity Male 06/28/2022 10:14 AM EDT Sexual Orientation Straight 06/28/2022 10 :14 AM EDT COVID-19 Exposure Response Date Recorded In the last 10 days, have yo u been in contact with someone who was confirmed or suspected to have Coronavirus/COVID-19? No / Unsure 12/15/2022 10:13 AM EDT documented as of this encounter Plan of Treatment Not on file documented as of this encounter Visit Diagnoses Not on filedocumented in this encounter Care Teams Mangle Catcher Relationship Specialty Start Date End Date Christine Lundy MD [address] [place] [phone] PCP - General Family Medicine 10/06/20 documented as of this encounter
--- OUTSIDE RECORDS SUMMARY | 2024-11-28 17:28 | XMS_ITS | Data Portability ---
Author Organization [facility] [place] [facility] - [employer] Address [address] [place] [address] Care Team Providers Care Lace Winder Name Role Phone [facility] OTHER [facility] OTHER Assessment Encounter Date Assessment Date Assessment LastModified by Organization Details LastModified Time 04/09/2022 04/09/2022 I have reviewed and agree with the assessment and plan as documented by the accessioner. I provided real-time medical direction for this [...] [id number] Marcial Alcaraz MD Main - [facility] [address] [place] [phone] 04/09/2022 15:03:37 06/03/2022 11:17:21 Edema of lower extremity [id number] R60.0 [id number] Shailesh Leong MD Main - [facility] [address] [place] [phone] 07/16/2024 16:38:11 07/16/2024 22:38:07 Strain of muscle of right lower leg 7948773469 9832564 S86.911A Health Concerns Section Related Observation LastModified by Organization Detai ls LastModified Time None Recorded Concern Status LastModified by Organization Details LastModified Time None Recorded Advance Directives Directive None Recorded Payers Encounter Date Sequence Insurance Name Policy Number Policy Aquino Covered Member ID Aquino Member ID Guarantor Name 04/09/2022 1 [facility] - DOS PRIOR TO 2022 - DUAL ELIGIBLE (MEDICARE REPLACEMENT/ADV ANTAGE - HMO) Palomo Colon [id number] Palomo Song Colon 07/16/2024 1 [facility] - DOS ON OR AFTER 2022 - DUAL ELIGIBLE - [employer] OPTIONS AND ONE CARE (MEDICARE REPLACEMENT/ADV ANTAGE - HMO) Palomo Colon [id number] Palomo Song Colon Notes Date Note Type [...] ................... ................... ................... ................... ................... ................... ........ Certified Professional Midwife Note: vitals, assessment, CMP ................... ................... ................... ................... ................... ................... ................... ........ Disposition: Fulfilled Marcial Alcaraz MD [address] [facility], [place], [address], [facility] [employer]NAVID MUÑOZ 05/28/2022 17:51:08 07/16/2024 text/html HPI: Patient [...] ................... ................... ................... ................... ................... ................... ........ Certified Professional Midwife Note From Raza Perez: Dispatched to stated [...] any h/a, dizziness, cp, sob or nausea. [facility] was consulted. Pt was informed of [...] ................... ................... ................... ................... ................... ................... ........ [facility] Consulted: Shailesh Leong ................... ................... ................... ................... ................... ................... ................... ........ Disposition: Fulfilled Shailesh Leong MD [address] [facility],[address], [place], [address], [place]IF [place], NAVID 07/16/2024 18:58:20
--- OUTSIDE RECORDS SUMMARY | 2024-11-28 17:28 | XMS_ITS | Encounter Summary ---
Author Organization [employer] Address [address] [facility] [address] [place] [address] Care Team Providers Care Service Center Supervisor Name Role Phone Christine Lundy MD Primary Care Provider [phone] Reason for Visit * Reason Onset Date Comments Nurse Triage 03/05/2024 Encounter Details Date Type Department Care Team ([facility] st Contact Info) Description 03/05/2024 Telephone [facility] [address] [place], [place] [phone] Christine Lundy MD [address] [place], [place] [phone] Nurse Triage Social History Tobacco Use Types Packs/Day Years Used Date Smoking Tobacco: Never Passive Smoke Exposure: Never Smokeless Tobacco: Never Alcohol Use Standard Drinks/Week Comments Never 0 (1 standard drink = 0.6 oz pur e alcohol) PHQ-2 Answer Date Recorded Patient Health Questionnaire-2 Score 0 01/31/2023 Housing Stability Answer Date Recorded What is your housing situation today? I have fam schmitz 03/09/[address] you li ve. Do you have problems with any of the following? None of the above 03/09/2024 Food Insecurity Answer Date Recorded Within the past 12 months, y ou worried that your food would run out before you got money to buy more: Never True 03/09/2024 Within the past 12 months,th e food you bought just didn't last and you didn't have enough money to get more: Never True 07/2024 Transportation Answer Date Recorded In the past 12 months, has l ack of transportation kept you from medical appts, meetings, work or from getting things needed for daily living? No 03/09/2024 Utilities Answer Date Recorded In the past 12 months, has t he electric, gas, oil or water company threatened to shut off services in your home? No 03/09/2024 Depression Answer Date Recorded Patient Health Questionnaire-2 Score 0 01/31/2023 Sex and Gender Information Value Date Recorded Sex Assigned at Male 06/28/2022 10:14 AM EDT Legal Sex Male 10:14 AM EDT Gender Identity Male 06/28/2022 10:14 AM EDT Sexual Orientation Straight 06/28/2022 10 :14 AM EDT documented as of this encounter Miscellaneous Notes * Telephone Encounter - Sarina Spivey RN - 03/05/2024 9:31 AM EDT Triage call Pt requesting apt with PCP. Pt is given information regarding scheduled apt with PCP 03/16/24 @ 930am. Pt was not aware of this apt. Pt reports bilateral flank pain for last 3 days. Neg for urinary symptoms. Neg for injury or increased exercise/activity. Pt reports, I drink alot of water . Pt is advised to increase liquids to 6-8 glasses daily of juice, decaf tea, water. Pt agrees. Pt is requesting lab tests. Pt is advised to come to [facility] today open till 800pm for provider to see Pt. Pt agrees with disposition and home care implemented. Insurance is verified as active. Protocol Used: Flank Pain (Adult) Protocol-Based Disposition: See in Office or Video Visit within 3 Days Video visit not offered Positive Triage Questions: * Mild pain (i.e., scale 1-3; does not interfere with normal activities) and present > 3 days * History of kidney stones * All higher-acuity triage questions were negative Care Advice Discussed: * Reassurance and Education - Flank Pain * Use a Cold Pack for Pain * Use Heat After 48 Hours for Pain * Activity * Pain Medicines * Pain Medicines - Extra Notes and Warnings * Reasons To Call Back - Fever over 100.4 F (38.0 C) - Burning with urination or blood in urine - Pain lasts over 3 days - You become worse * Telephone Encounter - Chong Interiano - 03/05/2024 9:16 AM EDT Symptom: Abdominal Pain - Male Outcome: Schedule an urgent appointment (within 4 hours) or talk to a nurse or provider soon Reason: Started within the past 3 days The caller accepted this outcome Please contact pt @ [phone] documented in this encounter Plan of Treatment Not on file documented as of this encounter Visit Diagnoses Not on filedocumented in this encounter Care Teams Service Center Supervisor Relationship Specialty Start Date End Date Christine Lundy MD [address] [place] [address] PCP - General Family Medicine 10/06/20 documented as of this encounter
--- OUTSIDE RECORDS SUMMARY | 2024-11-28 17:28 | XMS_ITS | Clinical Summary ---
Author Organization [employer] Address [address] [place] [address] [address] [place] [address] Care Team Providers Care Channel Marketing Program Manager Name Role Phone Christine Lundy MD Primary Care Provider [phone] Allergies No known active allergies Medications Glucose Blood (COOL BLOOD GLUCOSE TEST STRIPS ) Use 1 strip to skin route twice a day 06/30/20 18 Active sildenafil (Viagra) 100 MG tablet Take 1/2 to 1 tablet by mouth as needed 05/11/20 21 Active glucose blood (FREESTYLE LITE) test strip every 12 (twelve) hours. 06/15/20 21 Active Diclofenac Sodium 1 % gel apply 2 gram by topical route 4 times every day to the LEFT hip x 5-7 days 10/07/19 22 Active Blood Pressure kit Active Blood Glucose Monitoring Suppl (FreeStyle Lite) device Inject under the skin if needed. Use as instructed Active Lancets misc Active Alcohol Swabs (Alcohol Prep) pads Active lidocaine (Lidoderm) 5 % patchIndicatio ns:Acute bilateral thoracic back pain Apply 1 patch topically in the morning. May apply at any time and leave on for 12 hours prn pain 30 patch 1 11/11/19 23 Active ketorolac (Acular) 0.5 % ophthalmic solution PLEASE SEE ATTACHED FOR DETAILED DIRECTIONS 10/28/19 23 Active pyridoxine (Vitamin B-6) 100 MG tablet Take 100 mg by mouth in the morning. 01/13/20 23 Active tamsulosin (Flomax) 0.4 MG 24 hr capsule TAKE 1 CAPSULE BY MOUTH EVERY DAY IN THE MORNING 90 capsule 09/05/19 24 Active neomycin-polym yxin-dexAMETHa sone (Maxitrol) 3.5-80195-8.1 ophthalmic suspension INSTILL 1 DROP INTO BOTH EYES FOUR TIMES A DAY USE FOR 2 WEEKS THEN STOP 11/02/19 24 Active Azelastine HCl 137 MCG/SPRAY solution SPRAY 2 SPRAY INTRANASALLY 2 TIMES A DAY FOR 28 DAYS ADMINISTER INTO EACH NOSTRIL 30 mL 3 12/02/19 24 Active fexofenadine (Lucia) 60 MG tablet Take 1 tablet (60 mg) by mouth if needed each day (Allergies). 90 tablet 3 12/02/19 24 Active cholecalcifero l (Vitamin D-3) 50 MCG (2000 UT) capsule Take 1 capsule (50 mcg) by mouth in the morning. 90 capsule 3 12/02/19 24 Active ergocalciferol (Vitamin D2) 1.25 MG (57127 UT) capsule TAKE 1 CAPSULE (50,000 UNITS TOTAL) BY MOUTH ONCE WEEKLY Active gabapentin (Neurontin) 100 MG capsule Take 100 mg by mouth 3 times daily. 03/26/20 24 Active ipratropium (Atrovent) 0.03 % nasal spray SPRAY 2 SPRAYS TWICE A DAY BY INTRANASAL ROUTE FOR 30 DAYS, FOR NASAL CONGESTION. 05/18/20 24 Active oxyCODONE-acet aminophen (Percocet) 5-325 MG tablet TAKE 1 TO 2 TABLETS EVERY 4 TO 6 HOURS NEEDED FOR PAIN 04/05/20 24 Active predniSONE (Deltasone) 20 MG tablet 05/24/20 24 Active lisinopril-hyd roCHLOROthiazi de 10-12.5 MG tablet TAKE 1 TABLET BY MOUTH EVERY DAY 90 tablet 3 06/04/20 24 Active fluticasone (Flonase) 50 MCG/ACT nasal sprayIndicatio ns:Nasal congestion SPRAY 2 SPRAYS INTO EACH NOSTRIL EVERY DAY 16 mL 2 11/08/19 25 Active acetaminophen (Tylenol) 325 MG tablet Take 1 tablet by mouth every 4 (four) hours if needed for pain. 05/18/20 24 Active amoxicillin-cl avulanate (Augmentin) 875-125 MG tablet Take 1 tablet by mouth 2 times daily. 11/14/19 25 Active erythromycin (Romycin) 5 MG/GM ophthalmic ointment APPLY A SMALL AMOUNT ON EYELID 4 TIMES A DAY TO INCISION SITES FOR 1 WEEK 06/11/20 24 Active ibuprofen 600 MG tablet take 1 tablet by mouth every 6 to 8 hours as needed 04/05/20 24 Active levoFLOXacin (Levaquin) 500 MG tablet Take 1 tablet by mouth Once per day. 11/24/19 Active moxifloxacin (Vigamox) 0.5 % ophthalmic solution INSTILL 1 DROP INTO BOTH EYES 4 TIMES A DAY FOR 1 WEEK AFTER SURGERY 06/11/[address] 500 MG tablet delayed-releas e Take 1 tablet by mouth 2 times daily. 11/24/19 Active oxyCODONE (Roxicodone) 5 MG immediate release tablet TAKE 1 TABLET EVERY 6 HOURS NEEDED FOR BREAKTHROUGH PAIN. 06/19/20 24 Active mupirocin (Bactroban) 2 % ointment Apply topically 3 times daily for 10 days. 22 g 11/28/19 25 025 Active fluticasone (Flonase) 50 MCG/ACT nasal sprayIndicatio ns:Nasal congestion Administer 2 sprays into each nostril Once per day. Shake gently. Before first use, prime pump. After use, clean tip and replace cap. 16 g 2 04/09/20 24 025 Discontinued Active Problems Problem Noted Date Diagnosed Date Swelling of left testicle 11/27/2024 Assessment & Plan (11/27/2024 12:51 PM EDT): It feels as though the scrotal contents may now include a hernia sac. 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 DVT very unlikely not compatible with clinical picture I advise to take acetaminophen PRN, maintain proper hydration Labs ordered he will be contacted with results If symptoms persist or worse he will contact us back Acute idiopathic gout of left knee 05/25/2024 Overview (05/25/2024): Dx 05/18/24 at [facility] Assessment & Plan (05/25/2024 3:11 PM EDT): Finish prednisone course If still symptomatic may take up to seven days of Naproxen 250mg BID. His CrCl is between 30 and 60, so [facility] recommends using the lowest dose NSAID for the shortest amount of time Vasomotor rhinitis 05/18/2024 Nasal congestion 12/04/2023 Assessment & Plan (12/04/2023 7:41 PM EDT): Azelastine, anthistamine Lower urinary tract symptoms (LUTS) 04/18/2023 Assessment & Plan (04/18/2023 9:52 AM EDT): Most likely BPH, which he has been dx by . Restart Flomax tonight, counseled to use pillbox. FU Urine Cx/GC&CT testing. FU renal US results form last week to ro kidney stones, less likely due to absence of hematuria. Re consult prn if he develops urinary retention, worsened sxs and fu with Dr Romo. Dysuria 04/18/2023 Tremor, essential 01/31/2023 Assessment & Plan (05/30/2023 1:47 PM EDT): Tremor is present, has not trialled Propranolol Will start that Consult OT for possible life adaptations Chronic neck pain 01/31/2023 Assessment & Plan (03/16/2024 9:43 AM EDT): Topical meds Consider acupuncture versus trigger point injections for short term relief Recommend reaching out to [facility] for repeat visit due to worsening of neck pain and development of numbness and tingling down his R arm Assessment & Plan (05/30/2023 1:52 PM EDT): Topical meds Consider acupuncture versus trigger points Bilateral carpal tunnel syndrome 11/19/2022 Assessment & Plan (05/30/2023 1:48 PM EDT): S/p CTS release without improvement in symptoms Assessment & Plan (11/19/2022 12:15 PM EDT): Discuss injections versus surgery with Dr Pollock 12/01/22 Benign prostatic hyperplasia with post-void drib mariel 11/19/2022 Assessment & Plan (03/16/2024 9:43 AM EDT): Continue Flomax followup with urology, last visit 12/2023 Normal PSA Assessment & Plan (11/19/2022 12:16 PM EDT): Continue Flomax followup with urology, new referral placed Tubular adenoma of colon 07/30/2022 Degeneration of cervical intervertebral disc 01/2022 Assessment & Plan (11/19/2022 12:16 PM EDT): Appointment pending with Dr Jacob to discuss surgical intervention for myelopathy Abnormal colonoscopy 01/18/2022 Hypertensive kidney disease, stage III 0 Overview (11/19/2022): Follows with Dr Negron Assessment & Plan (03/16/2024 9:43 AM EDT): Cr stable Continue holding nephrotoxic meds Last visit with Dr Negron 12/2023 Assessment & Plan (11/19/2022 12:15 PM EDT): Cr stable Continue holding nephrotoxic meds 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 Initial goal of 30 min walk 3-5x/week. Increase as tolerated. - low-sodium diet (goal: <2g/day) and heart healthy diet such as DASH to reduce BP and prevent ASCVD. - Home BP monitoring 1-2 x day with goal of <140/90. - Seek immediate medical attention for chest pain, palpitations, SOB, syncope, or sudden changes in mental status. - Do not change or discontinue current prescriptions without first consulting health care provider Assessment & Plan (12/04/2023 7:40 PM EDT): At goal <140/90 Continue Lisinopril/hydrochlorothiazide BMP: Lab Results Component Value Date CREATININE 1.53 (H) 12/25/2022 CREATININE 1.17 06/27/2020 CREATININE 1.17 06/27/2020 K 3.9 12/25/2022 K 4.4 06/27/2020 K 4.4 06/27/2020 Lipid Panel: ASCVD Risk: Calculate pending updated labs EKG: Obtain baseline at f/u - Aerobic exercise to reduce BP. Initial goal of 30 min walk 3-5x/week. Increase as tolerated. - low-sodium diet (goal: <2g/day) and heart healthy diet such as DASH to reduce BP and prevent ASCVD. - Home BP monitoring 1-2 x day with goal of <140/90. - Seek immediate medical attention for chest pain, palpitations, SOB, syncope, or sudden changes in mental status. - Do not change or discontinue current prescriptions without first consulting health care provider Assessment & Plan (05/30/2023 1:48 PM EDT): At goal <140/90 Continue Lisinopril/HCTZ Assessment & Plan (11/19/2022 12:15 PM EDT): At goal <140/90 Continue Lisinopril/HCTZ Impaired glucose tolerance 06/25/2015 Hypertriglyceridemia 06/25/2015 Obesity 06/25/2015 Obstructive sleep apnea syndrome 06/25/2015 Assessment & Plan (11/27/2024 12:49 PM EDT): Call company to try to fix CPAP machine Assessment & Plan (03/16/2024 9:42 AM EDT): Continue CPAP for now as prescribed by [facility] for consideration of Inspire surgery Assessment & Plan (05/30/2023 1:47 PM EDT): Continue CPAP for now repeat HST completed Refer to another ENT for consideration of Inspire surgery Assessment & Plan (01/31/2023 12:30 PM EDT): Continue CPAP for now repeat HST completed Refer to another ENT for consideration of Inspire surgery Assessment & Plan (11/19/2022 12:14 PM EDT): Continue CPAP for now repeat HST Refer to another ENT for consideration of Inspire surgery Resolved Problems Problem Noted Date Diagnosed Date Resolved Date Cervical radiculopathy 01/31/202306/06 Assessment & Plan (01/31/2023 12:29 PM EDT): There is some back and form between neurology, spine surgery about whether the patient has cervical radiculopathy or not and whether he would benefit from surgical decompression - will consult EBONI Garza regarding this case as well If he declines surgery, would offer patient BB trial Encounters Date Type Department Care Team Description 11/26/2024 4:00 PM EDT Office Visit [facility] [address] [place] [phone] Christine Lundy MD Swelling of left testicle (Primary Dx); Obstructive sleep apnea syndrome 11/26/2024 Travel 11/19/2024 Patient Outreach [facility] [address] [place] [address] Christine Lundy MD Pre-visit Planning 11/19/2024 Patient Outreach [facility] [address] [place], [place] [phone] Christine Lundy MD Pre-visit Planning (SDOH negative. Tobacco screening negative.) 11/14/2024 Telephone [facility] [address] [place] [address] [phone] Christine Lundy MD Appointment Request 11/13/2024 Orders Only GENERIC EXTERNAL DATA DEPARTMENT Provider, Generic External Data 11/06/2024 Refill [facility] [address] [place] [address] [phone] Christine Lundy MD Nasal congestion 10/04/2024 Telephone [facility] [address] [place] [address] [phone] Hillary Henley MA from Last 3 Months Immunizations Name Administration Dates Next Due INFLUENZA INJECTABLE QUADRIV ALANT CCIIV4 MDCK Multi-dose vial 06/09/2018 Influenza High-dose Quadriva lent Preservative Free 05/30/2023,07/09/2022,05/29/2021 Influenza Quadrivalent Adjuvanted 2020 Influenza injectable quadriv alent IIV4 with preservative 07/11/2017,06/25/2016,06/25/2015 Influenza injectable quadriv alent preservative free 06/07/2019 Influenza, High Dose Seasona l, Preservative Free 05/25/2024 Influenza, Split (incl. rosie fied surface antigen) 11/27/2013,09/08/2012 Influenza, Unspecified 05/29/2021,06/09/2018 Influenza, seasonal, injecta ble, preservative free 07/09/2022,05/29/2021,06/07/2019,07/11,06/25/2016,06/25/2015,11/27/2013 ,09/08/2012 Influenza, trivalent, adjuvanted 022,05/29/2021,2020,06/09 Moderna Covid-19 Vaccine 12+ 11/08/2020,10/11/19 21 Pneumococcal Conjugate PCV 13 12/21/2018 Pneumococcal Polysaccharide PPSV23 07/09/2022 RSV Bivalent 10/26/2023 TD (adult), 2 Lf tetanus tox oid, preservative free, adsorbed 09/11/2003 Td, Adsorbed, Preservative F ree, Adult Use, Lf Unspecified 09/11/2003 Tdap 10/26/2023,11/16/2012 Zoster, Recombinant 07/29/2020,05/26/2020 Zoster, live 07/29/2020,05/26/2020,09/03/2014 Social History Tobacco Use Types Packs/Day Years Used Date Smoking Tobacco: Never Passive Smoke Exposure: Never Smokeless Tobacco: Never Tobacco Cessation:Counseling Given: Not Answered Alcohol Use Standard Drinks/Week Comments Never 0 (1 standard drink = 0.6 oz pur e alcohol) Depression Answer Date Recorded Patient Health Questionnaire-9 Score 0 11/26/2024 Patient Health Questionnaire-9 Score 0 11/26/2024 Last PHQ-9: Questionnaire Data Not on file 0 11/26/2024 Housing Stability Answer Date Recorded What is [...] Date Recorded Patient Health Questionnaire-2 Score 0 11/26/2024 Internet Access Answer Date Recorded Internet Access Q1 Yes 04/30/2024 Internet Access Q2 Not on file 04/30/2024 Sex and Gender Information Value Date Recorded Sex Assigned at Male 06/28/2022 10:14 AM EDT Legal Sex Male 10:14 AM EDT Gender Identity Male 06/28/2022 10:14 AM EDT Sexual Orientation Straight 06/28/2022 10 :14 AM EDT Last Filed Vital Signs Vital Sign Reading Time Taken Comments Blood Pressure 138/80 11/26/2024 3:54 PM EDT Pulse 84 11/26/2024 3:54 PM EDT Temperature 36.6 ??C (97.8 ??F) 11/26/2024 3:54 PM ED T Respiratory Rate 20 11/26/2024 3:54 PM EDT Oxygen Saturation 98% 07/23/2024 3:14 PM EST Inhaled Oxygen Concentration - - Weight 102 kg (225 lb 12.8 oz) 11/26/2024 3:54 P M EDT Height 172.7 cm (5' 8 ) 11/26/2024 3:54 PM EDT Body Mass Index 34.33 11/26/2024 3:54 PM EDT Plan of Treatment Health Maintenance Due Date Last Done Comments CT Colonography 1955 Colonoscopy 1955 Colorectal Cancer Screening 1955 FIT DNA/Cologuard 1955 FIT 1955 FOBT 1955 Sigmoidoscopy 1955 Alcohol/Substance Use Screening 1965 Hepatitis C Screening 1971 COVID-19 Vaccine ( season) 2024 07/03/2021, 11/08/2020, 10/11/2020 SDOH Screening 11/19/2025 11/19/2024 Depression Screening 11/26/2025 11/26/2024, 11/27/19 25 Tobacco Screening 11/27/2025 11/27/2024 Lipid Panel 06/07/2029 06/07/2024, 05/29, 11/07/2020, Additional history exists DTaP/Tdap/Td Vaccines (3 - Td or Tdap) 10/26/2033 10/26/2023, 11/16/2012, 09/11/2003, Additional history exists Zoster Vaccines Completed 07/29/2020, 08/2019, 05/26/2020, Additional history exists Pneumococcal Vaccine: 50+ Years Completed 07/09/2022, 12/21/2018 RSV Patients and Patients Aged 60 years or older Completed 10/26/2023 Influenza Vaccine Completed 05/25/2024, , 07/09/2022, Additional history exists HIB Vaccines Aged Out No longer eligi ble based on patient's age to complete this topic HPV Vaccines Aged Out No longer eligi ble based on patient's age to complete this topic Hepatitis A Vaccines Aged Out No long er eligible based on patient's age to complete this topic Hepatitis B Vaccines Aged Out No long er eligible based on patient's age to complete this topic IPV Vaccines Aged Out No longer eligi ble based on patient's age to complete this topic Meningococcal Vaccine Aged Out No stacey francisco eligible based on patient's age to complete this topic RSV under 20 months Aged Out No longe r eligible based on patient's age to complete this topic Rotavirus Vaccines Aged Out No longer eligible based on patient's age to complete this topic Procedures Procedure Name Priority Date/Time Associated Diagnosis Comments US SCROTUM STAT 11/28/2024 3:22 PM EDT Swelling of left testicle GROSS AND MICROSCOPIC LEVEL 3 Routine 11/13/2024 2:47 PM EDT GROSS AND MICROSCOPIC LEVEL 2 Routine 11/13/2024 2:27 PM EDT LIPID PANEL, STANDARD Routine 06/07/2024 8:07 AM EDT Hypertriglyceridemi a from Last 3 Months or Most Recently Relevant to Health Maintenance Results * US Scrotum (11/28/2024 3:22 PM EDT) Anatomical Region Laterality Modality Body Ultrasound 11/28/2024 3:22 PM EDT Narrative 11/28/2024 4:16 PM EDT ? [facility] ?[address] ?[place] [address] ? Ultrasound Report ? Signed ? Patient: Palomo Falcon ?MR#: [id number] ?? 71 ? : 1955 ?Acct:[id number] ? Age/Sex: 69 / M ?ADM Date: 11/28/24 ? Loc: HO.US ? Attending Dr: Christine Lundy MD ? Ordering Physician: Christine Lundy ?? Date of Service: 11/28/24 ?? Procedure(s): US scrotum ?? Accession Number(s): [id number] ? cc: Christine Lundy ? EXAMINATION: ?? US SCROTUM ? CLINICAL INFORMATION: ?? Left testicular swelling status post hydrocele repair 11/13/2024. Rule ?? out hernia. ? COMPARISON: ?? None available. ? TECHNIQUE: ?? A sonogram of the scrotum was performed assessing forbes-scale appearance ?? and color Doppler flow. Spectral Doppler analysis of the arterial and ?? venous flow were performed in the testes bilaterally. ? FINDINGS: ? RIGHT: Right testicle measures 4.8 x 2.3 x 3.6 cm, volume 20.5 mL. No ?? focal testicular parenchymal lesions are visualized. Spectral Doppler ?? analysis of the arterial and venous flow is normal in the right testis. ? Right epididymal head is normal in size. There is a moderate size right ?? hydrocele with echogenic debris.. There is a very small right ?? varicocele. Right epididymal Doppler flow is normal. ?? There is a right inguinal fat-containing hernia present extending into ?? the inguinal canal, with diastases measuring 3.4 cm. ? LEFT: Left testicle measures 4.5 x 2.5 x 3.5 cm, volume 18.4 mL. No ?? focal testicular parenchymal lesions are visualized. Spectral Doppler ?? analysis of the arterial and venous flow is normal in the left testis. ?? Left epididymal head is normal in size. There is a small 3 mm ?? epididymal head cyst. Left epididymal Doppler flow is normal. ?? There is a large left septated hydrocele, with the larger aspect ?? measuring 5.8 x 3.3 x 5.6 cm. There is associated mild skin thickening. ?? There is no left varicocele. ? US/US scrotum ?? IMPRESSION: ?? 1. Normal testicles bilaterally. No significant epididymal abnormality. ?? 2. Small right varicocele. ?? 3. Right inguinal fat-containing hernia suspected. Diastases measures ?? approximately 3.4 cm. ?? 4. Moderate size right hydrocele with echogenic debris. ?? 5. Complex large left hydrocele with septations. ? Electronically signed by: ??Darrius Mckay MD ??11/28/2024 04:13 PM EDT RP ? Dictated By: ?Darrius Mckay MD ? Signed By: ?<Electronically signed by Darrius Mckay MD in OV> ?11/28/24 1613 ? DD/ 1522 ? TD/TT: 11/28/24 1548 ? Shingles Roofer: ? Procedure Note Lucas Sánchez - 11/28/[address] [address] Ultrasound Report Signed Patient: EzekielTimothyPalomo [facility]#: [id number] [birth year] : 3Acct:[id number] Age/Sex: 69 / MADM Date: 11/28/24 Loc: HO.US Attending Dr: Christine Lundy MD Ordering Physician: Christine Lundy Date of Service: 11/28/24 Procedure(s): US scrotum Accession Number(s): [id number] cc: Christine Lundy EXAMINATION: US SCROTUM CLINICAL INFORMATION: Left testicular swelling status post hydrocele repair 11/13/2024. Rule out hernia. COMPARISON: None available. TECHNIQUE: A sonogram of the scrotum was performed assessing forbes-scale appearance and color Doppler flow. Spectral Doppler analysis of the arterial and venous flow were performed in the testes bilaterally. FINDINGS: RIGHT: Right testicle measures 4.8 x 2.3 x 3.6 cm, volume 20.5 mL. No focal testicular parenchymal lesions are visualized. Spectral Doppler analysis of the arterial and venous flow is normal in the right testis. Right epididymal head is normal in size. There is a moderate size right hydrocele with echogenic debris.. There is a very small right varicocele. Right epididymal Doppler flow is normal. There is a right inguinal fat-containing hernia present extending into the inguinal canal, with diastases measuring 3.4 cm. LEFT: Left testicle measures 4.5 x 2.5 x 3.5 cm, volume 18.4 mL. No focal testicular parenchymal lesions are visualized. Spectral Doppler analysis of the arterial and venous flow is normal in the left testis. Left epididymal head is normal in size. There is a small 3 mm epididymal head cyst. Left epididymal Doppler flow is normal. There is a large left septated hydrocele, with the larger aspect measuring 5.8 x 3.3 x 5.6 cm. There is associated mild skin thickening. There is no left varicocele. US/US scrotum IMPRESSION: 1. Normal testicles bilaterally. No significant epididymal abnormality. 2. Small right varicocele. 3. Right inguinal fat-containing hernia suspected. Diastases measures approximately 3.4 cm. 4. Moderate size right hydrocele with echogenic debris. 5. Complex large left hydrocele with septations. Electronically signed by: Darrius Mckay MD 11/28/2024 04:13 PM EDT Dictated By: Darrius Mckay MD Signed By: <Electronically signed by Darrius Mckay MD in OV> 11/28/24 1613 DD/ 1522 TD/TT: 11/28/24 1548 Shingles Roofer: us Christine Lundy MD [facility] PROCED[facility] Final Result * Gross and Microscopic Level 3 (11/13/2024 2:47 PM EDT) 11/13/2024 2:47 PM EDT 11/14/2024 8:45 AM EDT [facility] - 11/15/2024 2:30 PM EDT ----- ------- Name: Palomo Falcon ? Age/Sex: 69/M ? : 1955 Unit#: [id number] ?? Attend Dr: Johnny Penny MD ?Re11/13/24 ?Status: DEP SDC ? Location: HO.SSS ?Disch: ? ----- ------- SPEC : [id number] ? RECD: 11/14/24 ? STATUS: ??SOUT ? REQ NUM: [id number] ? ZAIN: 11/13/24 ? SUBM DR: Johnny Penny MD ? ENTERED: ??11/14/24 ?SP TYPE: Surgical ? OTHR DR: Christine Lundy ? ORDERED: ??Gross Micro L3 ? Diagnosis ?? Appendage of testicle, left, excision: ??Appendix epididymis. ?Clinical History Hydrocele, unspecified ?Microscopic Description Microscopic sections reviewed. ? Material Received ?? Appendage of the testicle, left ? Gross Description Received in formalin labeled ?appendage of the left testicle? is a 0.6 cm in greatest dimension rubbery figueroa cyst versus nodule. ??The margins are inked and the specimen is bisected to reveal a thin-walled, clear, serous, fluid-filled cyst, entirely submitted in a cassette labeled A. CEDS Copies To: ?? Johnny Penny MD ?? [facility] ?? [address] ?? [place] [address] ?? [phone] ?? [email or web address] ?? Christine Lundy ?? [address] ?? [place] [address] ?? [phone] ----- ------- Signed (signature on file) Sunita Nora 11/15/24 1430 ? ----- ------- ? END OF REPORT ? us Generic External Data Provider LAB CYTOLOGY DREW CH[facility]ERS Final Result [facility] [address] [place] [phone] * Gross and Microscopic Level 2 (11/13/2024 2:27 PM EDT) 11/13/2024 2:27 PM EDT 11/14/2024 10:23 AM EDT Narrative [facility] - 11/15/2024 2:56 PM EDT ----- ------- Name: Colon,Palomo S ? Age/Sex: 69/M ? : 1955 Unit#: [id number] ?? Attend Dr: Johnny Penny MD ?Re11/13/24 ?Status: DEP SDC ? Location: HO.SSS ?Disch: ? ----- ------- SPEC : [id number] ? RECD: 11/14/243 ? STATUS: ??SOUT ? REQ NUM: [id number] ? ZAIN: 11/13/24-3872 ? SUBM DR: Johnny Penny MD ? ENTERED: ??11/14/241 ?SP TYPE: Cytology ? OTHR DR: Christine Lundy ? ORDERED: ??Gross Micro L2, Cell Block ?Addendum Addendum ??1 ?Entered: 11/15/24 The cell block has clot and reactive appearing mesothelial cells. ??No change is made to the final interpretation. Addendum Signed (signature on file) Luciano Kearney MD 11/15/241455 ? ----- ------- ? Diagnosis ?? Hydrocele fluid: ??No malignancy identified. ? Comment: Scant cellularity. ??Rare lymphocytes are identified. ?Clinical History Hydrocele ? Material Received ?? Hydrocele fluid ? Gross Description Received is 10 cc of cloudy red fluid from which a ThinPrep slide and cell block are prepared. Copies To: ?? Johnny Penny MD ?? [facility] ?? [address] [place] [address] [address] ?? [place] [address] ?? [phone] ?? [email or web address] ?? Christine Lundy ?? [address] ?? [place] [address] ?? [phone] ? CONTINUED ON NEXT PAGE ----- ------- Name: Colon,Palomo S ? Age/Sex: 69/M ? : 1955 Unit#: [id number] ?? Attend Dr: Johnny Penny MD ?Re11/13/24 ?Status: DEP SDC ? Location: HO.SSS ?Disch: ? ----- ------- SPEC : [id number] ? RECD: 11/14/24-3 ? STATUS: ??SOUT ? REQ NUM: [id number] ? ZAIN: 11/13/24-7506 ? SUBM DR: Johnny Penny MD ? ENTERED: ??11/14/24-1 ?SP TYPE: Cytology ? OTHR DR: Christine Lundy ? ORDERED: ??Gross Micro L2, Cell Block ? ----- ------- Signed (signature on file) Luciano Kearney MD 11/15/24 1413 ? ----- ------- ? END OF REPORT ? us Generic External Data Provider LAB CYTOLOGY ORDE RABDA Final Result [facility] [address] [place] [address] [phone] * (ABNORMAL) Lipid Panel, Standard (06/07/2024 8:07 AM EDT) Triglycerides 145 <150 mg/dL [facility] Comment:Desirable Triglyceri de: less than 150 mg/dLBorderline High Triglyceride 150-199 mg/dLHigh Triglyceride: 200-499 mg/dLVery High Triglyceride: greater than or equal to 5OO mg/dL Cholesterol 209(H) <200 mg/dL [facility] Comment:Desirable Cholestero l: less than 200 mg/dLBorderline High Cholesterol: 200-239 mg/dLHigh Cholesterol: greater than 239 mg/dL LDL Cholesterol Calculated 113(H) <100 mg/dL [facility] Comment:Desirable LDL: less than 100 mg/dLNear Optimal/Above Optimal LDL: 110- 129 mg/dLBorderline High LDL: 130-159 mg/dLHigh LDL: 160-189 mg/dLVery High LDL: greater than or equal to 190 mg/dL HDL Cholesterol 67 >40 mg/dL [facility] Comment:Desirable HDL: great er than 40 mg/dL Note: This HDL assay may give artificially low results in patients with liver disease. Blood Venous blood specimen / Unknown 06/07/2024 8:07 AM EDT 06/07/2024 11:16 AM EDT us Lissy Breaux MD LAB BLOOD ORDERABLES Final Re sult [facility] [address] [place] [address] [phone] from Last 3 Months or Most Recently Relevant to Health Maintenance Insurance * Guarantor: Palomo Falcon Account Type Relation to Patient Date of Phone Billing Address Personal/Family Self [address] Care Teams Channel Marketing Program Manager Relationship Specialty Start Date End Date Christine Lundy MD [address] [place] [id number] PCP - General Family Medicine 10/06/20
--- OUTSIDE RECORDS SUMMARY | 2024-11-28 17:28 | XMS_ITS | Encounter Summary ---
Author Organization [employer] Address [address] [facility] 7[address] [place] [address] Care Team Providers Care Mold Holder Name Role Phone Christine Lundy MD Primary Care Provider [phone] Reason for Visit * Reason Onset Date Comments Nurse Triage 07/18/2024 Encounter Details Date Type Department Care Team ([facility] st Contact Info) Description 07/18/2024 Telephone [facility] [address] [place], [place] [phone] Christine Lundy MD [address] [place], [place] [phone] Nurse Triage Social History Tobacco Use Types [...] Recorded Patient Health Questionnaire-2 Score 0 01/31/2023 Internet Access Answer Date Recorded Internet Access [...] Telephone Encounter - Sarina Spivey RN - 07/18/2024 12:09 PM EST Triage call Pt reports right leg calf pain above the ankle. Pt reports had the same pain in left leg but, now right leg has started. Pt reports no pain when resting but, only when ambulating. Pt denies injury or over use. Pt has been taking tylenol with some effect and heat as well. Pt denies swollen joints, redness , swelling along vein. Pt was advised from [facility] nurse visit to follow up with PCP.ASK apt 07/23/24 @ 330pm with Dr. Pacheco. Pt is directed to the third floor red team. Pt agrees with disposition and home care already implemented. Insurance is verified as active prior to booking. Protocol Used: Leg Pain (Adult) Protocol-Based Disposition: See in Office or Video Visit within 2 Weeks Video visit not offered Positive Triage Question: * Mild pain (e.g., does not interfere with normal activities) and present > 7 days * All higher-acuity triage questions were negative Care Advice Discussed: * Reassurance and Education - Leg Pain * Pain Medicines * Pain Medicines - Extra Notes and Warnings * Reasons To Call Back - Moderate pain (such as limping) lasts more than 3 days - Mild pain lasts more than 7 days - Signs of infection occur (such as spreading redness, warmth, fever) - You become worse * Use a Cold Pack for Pain * Use Heat After 48 Hours for Pain * Telephone Encounter - Amaya Kessler - 07/18/2024 11:32 AM EST Symptom: Leg Pain - Not From Injury Outcome: Schedule an urgent appointment (within 1 hour) or talk to a nurse or provider soon Reason: Trouble walking The caller accepted this outcome. documented in this encounter Plan of Treatment Not on file documented as of this encounter Visit Diagnoses Not on filedocumented in this encounter Care Teams Mold Holder Relationship Specialty Start Date End Date Christine Lundy MD [address] [place] [phone] PCP - General Family Medicine 10/06/20 documented as of this encounter
--- OUTSIDE RECORDS SUMMARY | 2024-11-28 17:29 | XMS_ITS | Encounter Summary ---
Author Organization [facility], Address [address] [place] [address] Phone Care Team Providers Care Masonry Teacher Name Role Phone Christine Lundy MD Primary Care Provider Encounter Details Date Type Department Care Team (Late st Contact Info) Description 05/29/2024 Documentation Only [facility], - Sheryl Malone [address] [place] [phone] Blanca Hunt [address] [place] [address] Social History Tobacco Use Types Packs/Day Years Used Date Smoking Tobacco: Never Alcohol Use Standard Drinks/Week Comments No 0 (1 standard drink = 0.6 oz pur e alcohol) Sex and Gender Information Value Date Recorded Sex Assigned at Not on file Legal Sex Male 4:35 PM EST Gender Identity Not on file Sexual Orientation Not on file documented as of this encounter Plan of Treatment Not on file documented as of this encounter Visit Diagnoses Not on filedocumented in this encounter Care Teams Masonry Teacher Relationship Specialty Start Date End Date Christine Lundy MD PCP - General Watcher [employer] 05/04/22 documented as of this encounter
--- OUTSIDE RECORDS SUMMARY | 2024-11-28 17:29 | XMS_ITS | Encounter Summary ---
Author Organization [facility], Address [address] [place] [address] Phone Care Team Providers Care Bar Back Name Role Phone Christine Lundy MD Primary Care Provider [phone] Encounter Details Date Type Department Care Team (Late st Contact Info) Description 05/29/2024 Documentation Only [facility], - Sheryl Malone [address] [place] [phone] Blanca Hunt [address] [place] [address] Social History Tobacco Use Types [...] on filedocumented in this encounter Care Teams Bar Back Relationship Specialty Start Date End Date Christine Lundy MD PCP - General Cheese Cooker 05/04/22 documented as of this encounter
--- OUTSIDE RECORDS SUMMARY | 2024-11-28 17:29 | XMS_ITS | Encounter Summary ---
Author Organization [facility], Address [address] [place] [address] Phone Care Team Providers Care Distribution Supervisor Name Role Phone Christine Lundy MD Primary Care Provider Encounter Details Date Type Department Care Team (Late st Contact Info) Description 05/29/2024 Documentation Only [facility], - Sheryl Malone [address] [place] [phone] Blanca Hunt [address] [place] [address] Social History Tobacco Use Types [...] on filedocumented in this encounter Care Teams Distribution Supervisor Relationship Specialty Start Date End Date Christine Lundy MD PCP - General Saas Architect 05/04/22 documented as of this encounter
--- OUTSIDE RECORDS SUMMARY | 2024-11-28 17:29 | XMS_ITS | Clinical Summary ---
Author Organization [facility] Address [address] [place] [id number] Care Team Providers Care Dry Wall Plasterer Name Role Phone Unavailable Primary Care Provider Unavailabl e Medications Medication Sig Dispensed Refills Start Date End Date Status Acetaminophen Extra Strength 500 MG Tab Take 1 tablet by mouth Every 4 (four) to 6 (six) hours as needed. 06/19/2024 Active azelastine (Azelastine HCl) 0.1 % nasal spray SPRAY 2 SPRAY INTRANASALLY 2 TIMES A DAY FOR 28 DAYS ADMINISTER INTO EACH NOSTRIL 12/02/2023 Active Vitamin D3 (CHOLECALCIFEROL) 50 MCG (1999 UT) capsule TAKE 1 CAPSULE (50 MCG) BY MOUTH IN THE MORNING Active fexofenadine (ALESHA) 60 MG tablet Take 60 mg by mouth Once before discharge. 12/02/2023 Active finasteride (PROSCAR) 5 MG tablet Take 5 mg by mouth. 06/28/2024 Activ e gabapentin (NEURONTIN) 100 MG capsule Take 100 mg by mouth. 03/26/2024 Act maria esther lisinopril-hydroCHL OROthiazide (PRINZIDE,ZESTORETI C) 10-12.5 MG per tablet Take 1 tablet by mouth. Active oxyCODONE (ROXICODONE) 5 MG immediate release tablet TAKE 1 TABLET EVERY 6 HOURS NEEDED FOR BREAKTHROUGH PAIN. 06/19/2024 Active tamsulosin (FLOMAX) 0.4 MG capsule Take 0.4 mg by mouth nightly. Active Active Problems Problem Noted Date Diagnosed Date Acute idiopathic gout of left knee 05/25/2024 Overview (07/31/2024): Dx 05/18/24 at [facility] Last Assessment & Plan: Finish prednisone course If still symptomatic may take up to seven days of Naproxen 250mg BID. His CrCl is between 30 and 60, so UTD recommends using the lowest dose NSAID for the shortest amount of time Vasomotor rhinitis 05/18/2024 Nasal congestion 12/04/2023 Overview (07/31/2024): Last Assessment & Plan: Azelastine, anthistamine Difficult or painful urination 04/18/2023 Lower urinary tract symptoms (LUTS) 04/18/2023 Overview (07/31/2024): Last Assessment & Plan: Most likely BPH, which he has been dx by . Restart Flomax tonight, counseled to use pillbox. FU Urine Cx/GC&CT testing. FU renal US results form last week to ro kidney stones, less likely due to absence of hematuria. Re consult prn if he develops urinary retention, worsened sxs and fu with Dr Romo. Chronic neck pain 01/31/2023 Overview (07/31/2024): Last Assessment & Plan: Topical meds Consider acupuncture versus trigger point injections for short term relief Recommend reaching out to [facility] for repeat visit due to worsening of neck pain and development of numbness and tingling down his R arm Tremor, essential 01/31/2023 Overview (07/31/2024): Last Assessment & Plan: Tremor is present, has not trialled Propranolol Will start that Consult OT for possible life adaptations Benign prostatic hyperplasia with post-void drib mariel 11/19/2022 Overview (07/31/2024): Last Assessment & Plan: Continue Flomax followup with urology, last visit 12/2023 Normal PSA Bilateral carpal tunnel syndrome 11/19/2022 Overview (07/31/2024): Last Assessment & Plan: S/p CTS release without improvement in symptoms DDD (degenerative disc disease), cervical 2021 Overview (07/31/2024): Last Assessment & Plan: Appointment pending with Dr Jacob to discuss surgical intervention for myelopathy Hypertensive kidney disease, stage III Overview (07/31/2024): Follows with Dr Negron Last Assessment & Plan: Cr stable Continue holding nephrotoxic meds Last visit with Dr Negron 12/2023 Stage 3a chronic kidney disease 01/23/2020 Overview (07/31/2024): Update for Diagnosis 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 Vitamin D deficiency 06/30/2018 Essential (primary) hypertension 06/25/2015 Overview (07/31/2024): Last Assessment & Plan: At goal <140/90 Continue Lisinopril/hydrochlorothiazide BMP: Lab [...] prescriptions without first consulting health care provider Hypertriglyceridemia 06/25/2015 Impaired glucose tolerance 06/25/2015 Obesity 06/25/2015 Obstructive sleep apnea syndrome 06/25/2015 Overview (07/31/2024): Last Assessment & Plan: Continue CPAP for now as prescribed by [facility] for consideration of Inspire surgery Immunizations Name Administration Dates Next Due Influenza (AFLURIA/FLUZONE) Inactivated/Split Quadrivalent with Preservative IM 07/11/2017,06/25/2016,06/25/2015 Influenza High-Dose Quadrivalent,(FLUZONE HIGH-DOSE), Perservative Free IM 0.7 mL 65 years and older 05/30/2023,07/09/2022,05/29/2021 Influenza High-Dose Trivalen t,(FLUZONE HIGH-DOSE), Perservative Free IM 0.5 mL 65 years and older 05/25/2024 Influenza Split 11/27/2013,09/08/2012 Influenza, Quadrivalent (FLU AD) Adjuvanted Preservative Free IM 65 years and older 2020 Influenza, Quadrivalent (FLU ARIX, AFLURIA, FLULAVAL, FLUZONE) Preservative Free IM 06/07/2019 Influenza, Trivalent (FLUAD) Adjuvanted Preservative Free IM 65 years and older 2020,06/09/2018 Influenza, Trivalent (FLUARI X, AFLURIA, FLULAVAL, FLUZONE) Preservative Free IM 07/09/2022,05/29/2021,06/07/2019,07/11,06/25/2016,06/25/2015,11/27/2013 ,09/08/2012 Influenza, Unspecified 05/29/2021,06/09/2018 Pneumococcal Conjugate 13-Valent 12/21/2018 Pneumococcal Polysaccharide 23-Valent 07/09/2022 RSV, Bivalent, Protein Subun it RSVPREF (ABRYSVO), Diluent Reconstituted, 0.5 mL PF 10/26/2023 TD Preservative Free 09/11/2003 Td 09/11/2003 Tdap 10/26/2023,11/16/2012 Zoster Vaccine Live/Attenuat ed (Zostavax) 09/03/2014 Zoster Vaccine Recombinant (Shingrix) ,07/29/2020,05/26/2020,05/26 Social History Tobacco Use Types Packs/Day Years Used Date Smoking Tobacco: Never Assessed Sex and Gender Information Value Date Recorded Sex Assigned at Not on file Gender Identity Not on file Sexual Orientation Not on file Plan of Treatment Health Maintenance Due Date Last Done Comments Hepatitis C Virus Screening 1955 Colonoscopy 1998 COVID-19 Vaccine ( season) 2024 07/03/2021, 11/08/2020, 10/11/2020 DTaP/Tdap/Td Vaccines (3 - Td or Tdap) 10/26/2033 10/26/2023, 11/16/2012, 09/11/2003, Additional history exists Zoster (Shingles) Vaccine Completed 2019, 07/29/2020, 05/26/2020, Additional history exists Pneumococcal Vaccines 50+ Completed 07/09/2022, RSV Vaccine 60 years and older and Patients Completed 10/26/2023 Influenza Vaccine Completed 05/25/2024, , 07/09/2022, Additional history exists Hepatitis B Vaccines Aged Out No long er eligible based on patient's age to complete this topic
--- OUTSIDE RECORDS SUMMARY | 2024-11-28 17:29 | XMS_ITS | Encounter Summary ---
Author Organization [employer] Address [address] [place] [address] [address] [place] [address] Care Team Providers Care Distribution Collection Operator Name Role Phone Christine Lundy MD Primary Care Provider [phone] Reason for Referral * Imaging (STAT) - Authorized Specialty Diagnoses / Procedures Referred By Contac t Referred To Contact Radiology Diagnoses Swelling of left testicle Procedures US Scrotum Christine Lundy MD [address] [place] [address] Phone: tel: fax: [address] Phone: tel: fax: Referral ID Status Reason Start Date Expiration Date V isits Requested Visits Authorized [id number] Authorized 11/27/2024 11/27/2025 1 1 Reason for Visit * Reason Comments Hypertension Encounter Details Date Type Department Care Team (Late st Contact Info) Description 11/26/2024 4:00 PM EDT Office Visit [facility] [address], [place] [phone] Christine Lundy MD [address], [place] [phone] Swelling of left testicle (Primary Dx); Obstructive sleep apnea syndrome Social History Tobacco Use Types Packs/Day Years [...] AM EDT documented as of this encounter Last Filed Vital Signs Vital Sign Reading Time Taken Comments Blood Pressure 138/80 11/26/2024 3:54 PM EDT Pulse 84 11/26/2024 3:54 PM EDT Temperature 36.6 ??C (97.8 ??F) 11/26/2024 3:54 PM ED T Respiratory Rate 20 11/26/2024 3:54 PM EDT Oxygen Saturation - - Inhaled Oxygen Concentration - - Weight 102 kg (225 lb 12.8 oz) 11/26/2024 3:54 P M EDT Height 172.7 cm (5' 8 ) 11/26/2024 3:54 PM EDT Body Mass Index 34.33 11/26/2024 3:54 PM EDT documented in this encounter Progress Notes * Christine Lundy MD - 11/26/2024 4:00 PM EDT Images from the original note were not included. SUBJECTIVE: Palomo Falcon is a 69 y.o. year old male who presents for acute visit. Denies recent illness, ER visit, or hospitalization. Acute Concerns: Palomo has two acute concerns today, The first is that he has hydrocele repair on 13 November 2024 and has been on antibiotics since then (moxifloxacin and levofloxacin) with significant pain and swelling in the L testes. He tried wearing brief underwear, but that made it feel worse. He has not tried jock strap. The urologist mentioned in follow-up last week that is could be a hernia has formed. The second acute concern is that his new CPAP machine is not working and for the past several nights is has been dropping water into his nose. 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 No pertinent surgical history. No family history on file. 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 Respiratory: Negative. Cardiovascular: Negative. Gastrointestinal: Negative. Genitourinary: Positive for hematuria, scrotal swelling and testicular pain. Negative for flank pain, penile discharge, penile pain and penile swelling. OBJECTIVE: Vitals: 11/26/24 1554 BP: 138/80 BP Location: Left arm Patient Position: Sitting BP Cuff Size: Adult Pulse: 84 Resp: 20 Temp: 97.8 ??F (36.6 ??C) TempSrc: Oral Weight: 225 lb 12.8 oz (102 kg) Height: 5' 8 (1.727 m) Physical Exam Vitals and nursing note reviewed. Constitutional: Appearance: Normal appearance. He is normal weight. HENT: Head: Normocephalic and atraumatic. Cardiovascular: Rate and Rhythm: Normal rate and regular rhythm. Pulses: Normal pulses. Heart sounds: Normal heart sounds. Pulmonary: Effort: Pulmonary effort is normal. Breath sounds: Normal breath sounds. Genitourinary: Testes: Left: Tenderness and swelling present. Testicular hydrocele or varicocele not present. Comments: Parr line is sutures L testicle swollen compared to right and with heterogenous material Musculoskeletal: Cervical back: Normal range of motion and neck supple. Skin: General: Skin is warm and dry. Capillary Refill: Capillary refill takes less than 2 seconds. Neurological: General: No focal deficit present. Mental Status: He is alert and oriented to person, place, and time. Psychiatric: Mood and Affect: Mood normal. Behavior: Behavior normal. ASSESSMENT/PLAN Problem List Items Addressed This Visit Obstructive sleep apnea syndrome Current Assessment & Plan Call company to try to fix CPAP machine Swelling of left testicle - Primary Current Assessment & Plan It feels as though the scrotal contents may now include a hernia sac. Will obtain stat ultrasound and refer to general surgery if that is the case Pt has followup with Urology 12/14/24 Try [facility] for more support Relevant Orders US Scrotum Follow Up: 3 months or sooner prn No Known Allergies Current Outpatient Medications: acetaminophen (Tylenol) 325 MG tablet, Take 1 tablet by mouth every 4 (four) hours if needed for pain., Disp: , Rfl: amoxicillin-clavulanate (Augmentin) 875-125 MG tablet, Take 1 tablet by mouth 2 times daily., Disp:, Rfl: erythromycin (Romycin) 5 MG/GM ophthalmic ointment, APPLY A SMALL AMOUNT ON EYELID 4 TIMES A DAY TOINCISION SITES FOR 1 WEEK, Disp: , Rfl: ibuprofen 600 MG tablet, take 1 tablet by mouth every 6 to 8 hours as needed, Disp: , Rfl: levoFLOXacin (Levaquin) 500 MG tablet, Take 1 tablet by mouth Once per day., Disp: , Rfl: moxifloxacin (Vigamox) 0.5 % ophthalmic solution, INSTILL 1 DROP INTO BOTH EYES 4 TIMES A DAY FOR 1WEEK AFTER SURGERY, Disp: , Rfl: Naproxen DR 500 MG tablet delayed-release, Take 1 tablet by mouth 2 times daily., Disp: , Rfl: oxyCODONE (Roxicodone) 5 MG immediate release tablet, TAKE 1 TABLET EVERY 6 HOURS NEEDED FOR BREAKTHROUGH PAIN., Disp: , Rfl: Alcohol Swabs (Alcohol Prep) pads, , Disp: , Rfl: Azelastine HCl 137 MCG/SPRAY solution, SPRAY 2 SPRAY INTRANASALLY 2 TIMES A DAY FOR 28 DAYS ADMINISTER INTO EACH NOSTRIL, Disp: 30 mL, Rfl: 3 Blood Glucose Monitoring Suppl (FreeStyle Lite) device, Inject under the skin if needed. Use as instructed, Disp: , Rfl: Blood Pressure kit, , Disp: , Rfl: cholecalciferol (Vitamin D-3) 50 MCG (2000 UT) capsule, Take 1 capsule (50 mcg) by mouth in the morning., Disp: 90 capsule, Rfl: 3 Diclofenac Sodium 1 % gel, apply 2 gram by topical route 4 times every day to the LEFT hip x 5-7 days, Disp: , Rfl: ergocalciferol (Vitamin D2) 1.25 MG (65591 UT) capsule, TAKE 1 CAPSULE (50,000 UNITS TOTAL) BY MOUTH ONCE WEEKLY, Disp: , Rfl: fexofenadine (Lucia) 60 MG tablet, Take 1 tablet (60 mg) by mouth if needed each day (Allergies)., Disp: 90 tablet, Rfl: 3 fluticasone (Flonase) 50 MCG/ACT nasal spray, SPRAY 2 SPRAYS INTO EACH NOSTRIL EVERY DAY, Disp: 16 mL, Rfl: 2 gabapentin (Neurontin) 100 MG capsule, Take 100 mg by mouth 3 times daily., Disp: , Rfl: Glucose Blood (COOL BLOOD GLUCOSE TEST STRIPS ), Use 1 strip to skin route twice a day, Disp: , Rfl: glucose blood (FREESTYLE LITE) test strip, every 12 (twelve) hours., Disp: , Rfl: ipratropium (Atrovent) 0.03 % nasal spray, SPRAY 2 SPRAYS TWICE A DAY BY INTRANASAL ROUTE FOR 30 DAYS, FOR NASAL CONGESTION., Disp: , Rfl: ketorolac (Acular) 0.5 % ophthalmic solution, PLEASE SEE ATTACHED FOR DETAILED DIRECTIONS, Disp: , Rfl: Lancets misc, , Disp: , Rfl: lidocaine (Lidoderm) 5 % patch, Apply 1 patch topically in the morning. May apply at any time and leave on for 12 hours prn pain, Disp: 30 patch, Rfl: 1 lisinopril-hydroCHLOROthiazide 10-12.5 MG tablet, TAKE 1 TABLET BY MOUTH EVERY DAY, Disp: 90 tablet, Rfl: 3 mupirocin (Bactroban) 2 % ointment, Apply topically 3 times daily for 10 days., Disp: 22 g, Rfl: 0 zimogvjb-xalfmjazr-gaqTJFJKtzpxj (Maxitrol) 3.5-84435-1.1 ophthalmic suspension, INSTILL 1 DROP INTO BOTH EYES FOUR TIMES A DAY USE FOR 2 WEEKS THEN STOP, Disp: , Rfl: oxyCODONE-acetaminophen (Percocet) 5-325 MG tablet, TAKE 1 TO 2 TABLETS EVERY 4 TO 6 HOURS NEEDED FOR PAIN, Disp: , Rfl: predniSONE (Deltasone) 20 MG tablet, , Disp: , Rfl: pyridoxine (Vitamin B-6) 100 MG tablet, Take 100 mg by mouth in the morning., Disp: , Rfl: sildenafil (Viagra) 100 MG tablet, Take 1/2 to 1 tablet by mouth as needed, Disp: , Rfl: tamsulosin (Flomax) 0.4 MG 24 hr capsule, TAKE 1 CAPSULE BY MOUTH EVERY DAY IN THE MORNING, Disp: 90 capsule, Rfl: 0 Belarusian Translation: Patient is bilingual and declines translation services documented in this encounter Miscellaneous Notes * Assessment & Plan Note - Christine Lundy MD - 11/27/2024 12:51 PM EDT Associated Problem(s): Swelling of left testicle It feels as though the scrotal contents may now include a hernia sac. Will obtain stat ultrasound and refer to general surgery if that is the case Pt has followup with Urology 12/14/24 [facility] for more support * Assessment & Plan Note - Crhistine Lundy MD - 11/27/2024 12:49 PM EDT Associated Problem(s): Obstructive sleep apnea syndrome Call company to try to fix CPAP machine documented in this encounter Plan of Treatment Not on file documented as of this encounter Procedures Procedure Name Priority Date/Time Associated Diagnosis Comments US SCROTUM STAT 11/28/2024 3:22 PM EDT Swelling of left testicle documented in this encounter Results * US Scrotum (11/28/2024 3:22 PM EDT) Anatomical Region Laterality Modality Body Ultrasound 11/28/2024 3:22 PM EDT Narrative 11/28/2024 4:16 PM EDT ? [facility] ?[address] ?[place] [address] ? Ultrasound Report ? Signed ? Patient: Colon,Palomo S ?MR#: [id number] ?? 71 ? : 1955 ?Acct:[id number] ? Age/Sex: 69 / M ?ADM Date: 11/28/24 ? Loc: HO.US ? Attending Dr: Christine Lundy MD ? Ordering Physician: Christine Lundy ?? Date of Service: 11/28/24 ?? Procedure(s): US scrotum ?? Accession Number(s): [id number] ? cc: Christine Lundy ? EXAMINATION: ?? [...] DD/ 1522 ? TD/TT: 11/28/24 1548 ? Librarian: ? Procedure Note Lucas Sánchez - 11/28/2024 [place] [id number] Ultrasound Report Signed Patient: Palomo Falcon [facility]#: [id number] 71 : 1955cct:[id number] Age/Sex: 69 / MADM Date: 11/28/24 Loc: HO.US Attending Dr: Christine Lundy MD Ordering Physician: Christine Lundy Date of Service: 11/28/24 Procedure(s): US scrotum Accession Number(s): [id number] cc: Christine Lundy EXAMINATION: US SCROTUM CLINICAL [...] MD 11/28/2024 04:13 PM EDT Dictated By: Darirus Mckay MD Signed By: <Electronically signed by Darrius Mckay MD in OV> 11/28/24 1613 DD/ 1522 TD/TT: 11/28/24 1548 Librarian: us Christine Lundy MD IMG US PROCEDURES Final Result documented in this encounter Visit Diagnoses Diagnosis Swelling of left testicle- Primary Edema of male genital organs Obstructive sleep apnea syndrome Obstructive sleep apnea (adult) (pediatric) documented in this encounter Additional Health Concerns Assessment Noted Time PHQ-9 Depression Total Score: 0 03/31/20 25 4:00 PM EDT documented as of this encounter Care Teams Distribution Collection Operator Relationship Specialty Start Date End Date Christine Lundy MD [address] [place] [address] PCP - General Family Medicine 10/06/20 documented as of this encounter
--- OUTSIDE RECORDS SUMMARY | 2024-11-28 17:29 | XMS_ITS | Clinical Summary ---
Author Organization [facility], Address [address] [place] [address] [place] [address] Phone Care Team Providers Care Wood Tool Maker Name Role Phone Christine Lundy MD Primary Care Provider Allergies No known active allergies Medications atorvastatin (LIPITOR) 80 MG tablet TOME BEVERLY TABLETA TODOS LOS D EN LA NOCHE 0 Active VIAGRA 100 MG tablet TAKE 1 TABLET 1 HOUR BEFORE SEXUAL RELATIONS ONCE DAILY NEEDED., MAY TAKE 1/2 TABLET 0 Active cyclobenzaprine (FLEXERIL) 5 MG tablet Take 5 mg by mouth 3 (three) times a day if needed for muscle spasms Active acetaminophen (Acetaminophen 8 Hour) 650 MG 8 hr tablet Take 650 mg by mouth every 8 (eight) hours if needed for mild pain Do not crush, chew, or split. Active lisinopril-hydr oCHLOROthiazide (PRINZIDE,ZESTO RETIC) 10-12.5 MG per tablet Take 1 tablet by mouth 1 (one) time each day 30 tablet 11 2 Active tamsulosin (FLOMAX) 0.4 MG 24 hr capsule Take 0.4 mg by mouth every morning 4 Active cholecalciferol (VITAMIN D-3) 50 MCG (1999 UT) capsule TAKE 1 CAPSULE (50 MCG) BY MOUTH IN THE MORNING 4 Active gabapentin (NEURONTIN) 100 MG capsule Take 100 mg by mouth 4 Active Active Problems Problem Noted Date Diagnosed Date Dysuria 04/18/2023 Essential (primary) hypertension 01/29/2021 Hypertriglyceridemia 01/29/2021 Stage 3a chronic kidney disease 01/23/2020 Overview (09/01/2020): Update for Diagnosis Load Chronic kidney disease stage 3 due to hypertensi on 01/23/2020 Vitamin D deficiency 06/30/2018 05/24/2023 Resolved Problems Problem Noted Date Diagnosed Date Resolved Date History of calculus of kidney 01/23/2020 01/28/2021 Immunizations Name Administration Dates Next Due Influenza (IM) Preservative Free 022,05/29/2021,06/07/2019,07/11,06/25/2016,06/25/2015,11/27/2013 ,09/08/2012 Influenza Split 11/27/2013,09/08/2012 Influenza Split High Dose Pr eservative Free IM 05/25/2024 Influenza Vaccine, Quadrival ent, Adjuvanted 2020 Influenza, MDCK, Quadrivalen t, with preservative 06/09/2018 Influenza, Quadrivalent, Pre servative Free 06/07/2019 Influenza, Quadrivalent, Wit h Preservative 07/11/2017,06/25/2016,06/25/2015 Influenza, Trivalent, Adjuvanted 2020,05/29 Influenza, Unspecified 05/29/2021 Moderna SARS-COV-2 07/03/2021,11/08/2020, 021 Pneumococcal Conjugate 13-Valent 12/21/2018 Pneumococcal Polysaccharide 07/09/2022 Shingrix 07/29/2020,05/26/2020 Td 09/11/2003 Tdap 10/26/2023,11/16/2012 Zoster 07/29/2020,05/26/2020,09/03/2014 Family History Medical History Relation Comments Diabetes Mother Hypertension Mother Diabetes Sibling 1 sister Hypertension Sibling 2 sister Relation Status Comments Father Mother Alive Sibling 1 Sibling 2 Social History Tobacco Use Types Packs/Day Years Used Date Smoking Tobacco: Never Alcohol Use Standard Drinks/Week Comments No 0 (1 standard drink = 0.6 oz pur e alcohol) Sex and Gender Information Value Date Recorded Sex Assigned at Not on file Legal Sex Male 4:35 PM EST Gender Identity Not on file Sexual Orientation Not on file Last Filed Vital Signs Vital Sign Reading Time Taken Comments Blood Pressure 118/70 03/15/2019 12:00 PM EDT Pulse 74 03/15/2019 12:00 PM EDT Temperature - - Respiratory Rate 16 03/15/2019 12:00 PM EDT Oxygen Saturation - - Inhaled Oxygen Concentration - - Weight 98.9 kg (218 lb) 03/15/2019 12:00 PM EDT Height 172.7 cm (5' 8 ) 03/15/2019 12:00 PM EDT Body Mass Index 33.15 03/15/2019 12:00 PM EDT Plan of Treatment Health Maintenance Due Date Last Done Comments Colorectal Cancer Screening: Annual FOBT 2002 Colorectal Cancer Screening: Colonoscopy 2002 Colorectal Cancer Screening: Sigmoidoscopy 2002 Pneumococcal Vaccine: 65+ Years Completed 07/09/2022, 12/21/2018 Influenza Vaccine Completed 05/25/2024, , 05/29/2021, Additional history exists Hepatitis B Vaccine Aged Out No longe r eligible based on patient's age to complete this topic Insurance [facility] DUAL SNP ([id number]) [place] [id number] Care Teams Wood Tool Maker Relationship Specialty Start Date End Date Christine Lundy MD PCP - General Hims Clerk 05/04/22
--- OUTSIDE RECORDS SUMMARY | 2024-11-28 17:29 | XMS_ITS | Encounter Summary ---
Author Organization [employer] Address [address] [place] [address] Care Team Providers Care Gear Cutting Machine Operator Name Role Phone Christine Lundy MD Primary Care Provider [phone] Encounter Details Date Type Department Care Team (Latest Contact Info) Description 11/26/2024 Travel Social History Tobacco Use Types Packs/Day Years [...] Diagnoses Not on filedocumented in this encounter Additional Health Concerns Assessment Noted Time PHQ-9 Depression Total Score: 0 11/27/19 25 4:00 PM EDT documented as of this encounter Care Teams Gear Cutting Machine Operator Relationship Specialty Start Date End Date Christine Lundy MD [address] [place] [id number] PCP - General Family Medicine 10/06/20 documented as of this encounter
--- OUTSIDE RECORDS SUMMARY | 2024-11-28 17:29 | XMS_ITS | Encounter Summary ---
Author Organization [employer] Address [address] [facility] [address] [place] [address] Care Team Providers Care Plumbing Hardware Assembler Name Role Phone Christine Lundy MD Primary Care Provider [phone] Encounter Details Date Type Department Care Team (Late st Contact Info) Description 08/08/2024 Orders Only [facility] [address], [place] [phone] ProviderChristel MD Social History Tobacco Use Types Packs/Day Years [...] Procedure Name Priority Date/Time Associated Diagnosis Comments CT ABDOMEN PELVIS WO CONTRAST Routine 07/31/2024 2:37 PM EST documented in this encounter Results * CT Abdomen Pelvis w/o Contrast (07/31/2024 2:37 PM EST) Anatomical Region Laterality Modality Body, Pelvis, Abdomen Computed T omography us Historical Provider MD JARRETT CT PROCEDURES Final R esult documented in this encounter Visit Diagnoses Not on filedocumented in this encounter Care Teams Plumbing Hardware Assembler Relationship Specialty Start Date End Date Christine Lundy MD [address] [place] [id number] PCP - General Family Medicine 10/06/20 documented as of this encounter
--- OUTSIDE RECORDS SUMMARY | 2024-11-28 17:29 | XMS_ITS | Encounter Summary ---
Author Organization [facility] Address [address] [place] [address] Phone Care Team Providers Care Director Franchise Sales Name Role Phone Christine Lundy MD Primary Care Provider [phone] Encounter Details Date Type Department Care Team (Late st Contact Info) Description 04/28/2022 Documentation Only [facility], [address] [place] [address] Jose Negron MD [address] [place] [address] Social History Tobacco Use Types Packs/Day Years [...] on filedocumented in this encounter Care Teams Director Franchise Sales Relationship Specialty Start Date End Date Christine Lundy MD PCP - General Poker Manager 05/04/22 documented as of this encounter
== END 2024-11-28 14:55 | disposition home or self-care (01) ==
LOC: HO.US 14:54
PROVIDERS: PCP General Practice; Visit Provider General Practice
DX: N50.89 Other specified disorders of the male genital organs (principal)
CPT/HCPCS: 76870

== ENCOUNTER → 2024-11-28 14:56 | Outpatient (BNV) | payer OTHER, SELFPAY | PROVIDERS: PCP General Practice; Visit Provider Radiology Diagnostic Radiology | DX: N43.2 Other hydrocele (principal) | CPT/HCPCS: 76870 ==

== ENCOUNTER → 2024-12-04 11:08 | Outpatient (BNVA) | payer OTHER, SELFPAY | PROVIDERS: PCP General Practice; Visit Provider Urology ==

== ENCOUNTER 2024-12-14 15:15 | Outpatient (AMB) | payer OTHER, SELFPAY ==
--- NOTE | 2024-12-14 14:21 | A.OFFVIS_ITS ---
Intake Visit Reasons: Hydrocelectomy- follow up Intake Note: Patient presents to office today for follow up/hydrocelectomy Urology Medications: Vitamin B6, finasteride, Tamsulosin Blood Thinner: none Windows Systems Architect Required: No Accompanied by: Self / Same As Patient Allergies No Known Allergies Allergy (Verified 12/14/24 15:51) HPI Comments Details: 12/14/24-- s/p Left hydrocelectomy 11/13/24 History of Present Illness The patient is a 69-year-old male presenting with persistent postoperative pain and swelling following a left hydrocelectomy. The procedure took place on 11/13/2024, and the patient reports pain localized to the incision site, which has been gradually improving. Initial serosanguineous drainage from the incision site has resolved. An ultrasound conducted on 11/28/2024 indicates a persistent septated hydrocele on the left side without signs of infection, and the testicular examination showed normal results with good Doppler flow. Additionally, the patient has been evaluated for an inguinal hernia, experiencing pain in the left groin region. He is scheduled to see a general surgeon on the . Recent diagnostic imaging confirmed that the testicles are normal, but some fluid is still present in the left scrotum. Previously, his PSA was within normal limits at 2.34 ng/mL on 06/21/2024. Despite persistent fullness and discomfort, the patient has noted some improvement in pain at the incision site. Urinary Symptoms Review Results - Tests: Ultrasound on 11/28/2024: Persistent septated hydrocele on the left, n ormal testicles bilaterally with good Doppler flow. - Labs: PSA on 06/21/2024:2.34 ng/mL (within normal limits). Discussion Notes I discussed with the patient the nature of his ongoing postoperative symptoms. The incision-related pain is expected as part of the healing process and should continue to improve. I explained that the persistent septated hydrocele is likely due to postoperative changes and emphasized the need for allowing more time for resolution. We also reviewed the results indicating no signs of infection and normal testicular appearance. Follow-up with the general surgeon for the inguinal hernia is planned, as it could be contributing to the groin pain. A further evaluation using a pelvic CT is discussed to assess residual issues. We addressed concerns, assured normal PSA levels, and set a three-month follow-up plan. Plan The patient is advised to continue monitoring his post-surgical symptoms. The healing from the left hydrocelectomy remains a primary focus, and with incision pain improving, ongoing observation is recommended. Previous treatments, including antibiotic therapy, have effectively prevented infection. The septated hydrocele is being carefully monitored, with plans to reevaluate using a pelvic CT in three months. Discussion with the general surgeon regarding the inguinal hernia should provide additional management options. His PSA levels remain w ithin normal limits, offering reassurance about prostate health. Consent for this management plan has been obtained, with risks, benefits, and expectations clearly communicated. Patient Instructions - Continue medicine as prescribed. - Follow up with the general surgeon for the hernia on the scheduled date. - Expect a call from radiology to schedule the pelvic CT. - Monitor the scrotum for any changes or increased fluid. - Watch for signs of infection like fever or increased drainage. - Return for follow-up in three months or earlier if symptoms worsen. Patient was informed and verbally consented to the use of an ambient scribe for clinic note documentation during this visit. 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 Results AMB Urinalysis, Automated UA Leukoctes 0 Vesna/uL Last Edit by Chey Chacon on 12/14/24 16:37 UA Nitrite Negative Last Edit by Chey Chacon on 12/14/24 16:37 UA Urobilinogen 0.2 mg/dL Last Edit by Chey Chacon on 12/14/24 16:37 UA Protein 0 mg/dL Last Edit by Chey Chacon on 12/14/24 16:37 UA pH 5.5 Last Edit by Chey Chacon on 12/14/24 16:37 UA Blood 0 Ray/uL Last Edit by Chey Chacon on 12/14/24 16:37 UA Specific [place] 1.025 Last Edit by Chey Chacon on 12/14/24 16:37 UA Ketone Negative Last Edit by Chey Chacon on 12/14/24 16:37 UA Bilirubin 0 mg/dL Last Edit by Chey Chacon on 12/14/24 16:37 UA Glucose 0 mg/dL Last Edit by Chey Chacon on 12/14/24 16:37 Assessment & Plan Assessment & Plan Orders: Orders AMB Urinalysis Automated Today Z13.9 - Encounter for screening, unspecified Coding
--- OUTSIDE RECORDS SUMMARY | 2024-12-14 15:18 | XMS_ITS | Data Portability ---
Author Organization [place] - [facility], Allergy Address [address] [place] [address] Care Team Providers Care Supervisor Plastic Sheets Name Role Phone DAVID BAI Primary Care Provider [phone] ELISABET CONLEY Referring Provider Assessment Encounter Date Assessment Date Assessment LastModified [...] his sleep disordered breathing with CPAP through [facility]. To help with [...] mcg (0.03 %) nasal spray 2023 024 [facility][id number], [address], [place], [address], 15:34:19 Patient TargetsNo targets recorded. Patient InstructionsNo [...] Recorded Time Obstructiv e sleep apnea syndrome 15115682 Active 2021 Obstructive sleep apnea (adult) (pediatric) ; Note: Date Diagnosed: 06/18/2022 10:07 AM (G47.33) PALOMO JUNIOR MD [address] [address], [facility] [place] [place], [phone], [facility] - [facility] 4 19:56:08 Vasomotor rhinitis 1053757 Active 2023 PALOMO JUNIOR MD [address] [address], [facility] [place] [place], [phone], [facility] 4 15:34:25 Problem Notes None recorded. Procedures Surgical History None recorded. Imaging Results Imaging Date Name Status LastModified by [facility] Details LastModified Time 11/30/2023 sleep study, diagnostic (PROC) completed [email or web address] Information not available 05/03/2024 16:15:27 Procedure Notes None recorded. Medical Equipment None Reported. Allergies No known drug allergies Medications Name Sig Start Date Stop Date Status Note LastModified by Organization Details LastModified Time cyclobenz aprine 10 mg tablet active Medicati on ID: [id number] B rand Name: cycloben zaprine Send Method: [...] 80 mg tablet active Medicati on ID: [id number] B rand Name: atorvast atin Sen d [...] 5 mg tablet active Medicati on ID: 814107 B rand Name: jarod ihgh Send Method: E-Prescr ibed Sub s Allowed: [...] tablet,ex tended release active Medicati on ID: [id number] B rand Name: Mapap Arthriti s Pain [...] 12.5 mg tablet active Medicati on ID: 328712 B rand Name: hydrochl orothiaz oscar Send [...] Updated DateTime 05/18/2024 172.72 cm 32.7 kg/m2 86593.36 g Maddy Jones [place] - [facility] 05/18/2024 15:18:08 Social History None recorded. Functional Status None recorded. Mental Status None recorded. Family History Nothing Reported. Medical History Condition Response Hypertension Y Kidney Disease Y Sleep Disorder Y Past Encounters Encounter ID Performer Location Encounter Start Date Encounter Closed Date Diagnosis/Indication Diagnosis SNOMED-CT Code Diagnosis ICD10 Code Diagnosis Note [id number] PALOMO JUNIOR MD [facility] [address] [place] [address] 05/18/2024 14:53:41 05/21/2024 07:26:01 Obstructive sleep apnea syndrome 80870278 G47.33 Vasomotor rhinitis 06873 03 J30.0 Health Concerns Section Related Observation LastModified by Organization Detai ls LastModified Time None Recorded Concern Status LastModified by Organization Details LastModified Time None Recorded Advance Directives Directive None Recorded Payers Encounter Date Sequence Insurance Name Policy Number Policy Aquino Covered Member ID Aquino Member ID Guarantor Name 05/18/2024 1 [facility] - DOS ON OR AFTER 2022 - MEDICARE ADVANTAGE [place] (MEDICARE REPLACEMENT/ADV ANTAGE - PPO) Palomo Song Colon [id number] Palomo Song Colon Notes Date Note Type [...] wakes him up PALOMO JUNIOR MD [address] [facility],[address] [address], [place], [address], [facility] - [facility] 05/18/2024 15:35:38
--- OUTSIDE RECORDS SUMMARY | 2024-12-14 15:18 | XMS_ITS | Encounter Summary ---
Author Organization [employer] Address [address] [facility] [address] [place] [address] Care Team Providers Care Oil Tank Car Cleaner Name Role Phone Christine Lundy MD Primary Care Provider [phone] Reason for Visit * Reason Onset Date Comments Nurse Triage 03/05/2024 Encounter Details Date Type Department Care Team ([facility] st Contact Info) Description 03/05/2024 Telephone [facility] MEDICINE [address] [place], [place] [phone] Christine Lundy MD [address] [place], [place] [phone] Nurse Triage Social History Tobacco Use Types [...] tests. Pt is advised to come to [facility] today open till 800pm for provider to [...] accepted this outcome Please contact pt @ [phone] documented in this encounter Plan of Treatment Not on file documented as of this encounter Visit Diagnoses Not on filedocumented in this encounter Care Teams Oil Tank Car Cleaner Relationship Specialty Start Date End Date Christine Lundy MD [address] [place] [address] PCP - General Family Medicine 10/06/20 documented as of this encounter
--- OUTSIDE RECORDS SUMMARY | 2024-12-14 15:18 | XMS_ITS | Encounter Summary ---
Author Organization [employer] Address [address] [facility] [address] [place] [address] Care Team Providers Care Timber Girdler Name Role Phone Christine Lundy MD Primary Care Provider [phone] Reason for Visit * Reason Onset Date Comments Nurse Triage 07/18/2024 Encounter Details Date Type Department Care Team ([facility] st Contact Info) Description 07/18/2024 Telephone [facility] MEDICINE [address] [place], [place] [phone] Christine Lundy MD [address] [place], [place] [phone] Nurse Triage Social History Tobacco Use Types [...] on filedocumented in this encounter Care Teams Timber Girdler Relationship Specialty Start Date End Date Christine Lundy MD [address] [place] [address] PCP - General Family Medicine 10/06/20 documented as of this encounter
--- OUTSIDE RECORDS SUMMARY | 2024-12-14 15:18 | XMS_ITS | Clinical Summary ---
Author Organization [employer] Address [address] [facility] [address] [place] [address] Care Team Providers Care Single Wire Saw Operator Name Role Phone Christine Lundy MD Primary Care Provider Allergies No known active allergies Medications Glucose Blood (COOL BLOOD GLUCOSE TEST STRIPS ) Use 1 strip to skin route twice a day 8 Active sildenafil (Viagra) 100 MG tablet Take 1/2 to 1 tablet by mouth as needed 1 Active glucose blood (FREESTYLE LITE) test strip every 12 (twelve) hours. 1 Active Diclofenac Sodium 1 % gel apply 2 gram by topical route 4 times every day to the LEFT hip x 5-7 days 2 Active Blood Pressure kit Active Blood Glucose [...] 12 hours prn pain 30 patch 1 3 Active ketorolac (Acular) 0.5 % ophthalmic solution PLEASE SEE ATTACHED FOR DETAILED DIRECTIONS 3 Active pyridoxine (Vitamin B-6) 100 MG tablet Take 100 mg by mouth in the morning. 3 Active tamsulosin (Flomax) 0.4 MG 24 hr capsule TAKE 1 CAPSULE BY MOUTH EVERY DAY IN THE MORNING 90 capsule 4 Active neomycin-polym yxin-dexAMETHa sone (Maxitrol) 3.5-67463-6.1 ophthalmic suspension INSTILL 1 DROP INTO BOTH EYES FOUR TIMES A DAY USE FOR 2 WEEKS THEN STOP 4 Active Azelastine HCl 137 MCG/SPRAY solution SPRAY 2 SPRAY INTRANASALLY 2 TIMES A DAY FOR 28 DAYS ADMINISTER INTO EACH NOSTRIL 30 mL 3 4 Active fexofenadine (Lucia) 60 MG tablet Take 1 tablet (60 mg) by mouth if needed each day (Allergies). 90 tablet 3 4 Active cholecalcifero l (Vitamin D-3) 50 MCG (2000 UT) capsule Take 1 capsule (50 mcg) by mouth in the morning. 90 capsule 3 4 Active ergocalciferol (Vitamin D2) 1.25 MG (48077 UT) capsule TAKE 1 CAPSULE (50,000 UNITS TOTAL) BY MOUTH ONCE WEEKLY Active gabapentin (Neurontin) 100 MG capsule Take 100 mg by mouth 3 times daily. 4 Active ipratropium (Atrovent) 0.03 % nasal spray SPRAY 2 SPRAYS TWICE A DAY BY INTRANASAL ROUTE FOR 30 DAYS, FOR NASAL CONGESTION. 4 Active oxyCODONE-acet aminophen (Percocet) 5-325 MG tablet TAKE 1 TO 2 TABLETS EVERY 4 TO 6 HOURS NEEDED FOR PAIN 4 Active predniSONE (Deltasone) 20 MG tablet 4 Active lisinopril-hyd roCHLOROthiazi de 10-12.5 MG tablet TAKE 1 TABLET BY MOUTH EVERY DAY 90 tablet 3 4 Active fluticasone (Flonase) 50 MCG/ACT nasal sprayIndicatio ns:Nasal congestion SPRAY 2 SPRAYS INTO EACH NOSTRIL EVERY DAY 16 mL 2 5 Active acetaminophen (Tylenol) 325 MG tablet Take 1 tablet by mouth every 4 (four) hours if needed for pain. 4 Active amoxicillin-cl avulanate (Augmentin) 875-125 MG tablet Take 1 tablet by mouth 2 times daily. 5 Active erythromycin (Romycin) 5 MG/GM ophthalmic ointment APPLY A SMALL AMOUNT ON EYELID 4 TIMES A DAY TO INCISION SITES FOR 1 WEEK 4 Active ibuprofen 600 MG tablet take 1 tablet by mouth every 6 to 8 hours as needed 4 Active levoFLOXacin (Levaquin) 500 MG tablet Take 1 tablet by mouth Once per day. 5 Active moxifloxacin (Vigamox) 0.5 % ophthalmic solution INSTILL 1 DROP INTO BOTH EYES 4 TIMES A DAY FOR 1 WEEK AFTER SURGERY [address] 500 MG tablet delayed-releas e Take 1 tablet by mouth 2 times daily. 5 Active oxyCODONE (Roxicodone) 5 MG immediate release tablet TAKE 1 TABLET EVERY 6 HOURS NEEDED FOR BREAKTHROUGH PAIN. 4 Active mupirocin (Bactroban) 2 % ointment Apply topically 3 times daily for 10 days. 22 g 5 12/08/19 Active Problems Problem Noted Date Diagnosed Date Unilateral recurrent inguina l hernia without obstruction or gangrene 11/29/2024 Swelling of left testicle 11/27/2024 Assessment & [...] knee 05/25/2024 Overview (05/25/2024): Dx 05/18/24 at [facility] ED Assessment & Plan (05/25/2024 3:11 PM [...] short term relief Recommend reaching out to [facility] NSG for repeat visit due to worsening [...] Continue CPAP for now as prescribed by [facility] Sleep Medicine ENT for consideration of [facility] [...] Encounters Date Type Department Care Team Description 11/30/2024 Telephone [facility] MEDICINE [address] [place] [address] Christine Lundy MD Results 11/26/2024 4:00 PM EDT Office Visit [facility] [address] [place] [address] Christine Lundy MD Swelling of left testicle (Primary Dx); Obstructive sleep apnea syndrome; Dietary counseling; Exercise counseling; Class 1 obesity with serious comorbidity and body mass index (BMI) of 34.0 to 34.9 in adult, unspecified obesity type; Hypertensive kidney disease, stage III (CMS/HCC); Unilateral recurrent inguinal hernia without obstruction or gangrene 11/26/2024 Travel 11/19/2024 Patient Outreach [facility] [address] [place], [place] [phone] Christine Lundy MD Pre-visit Planning 11/19/2024 Patient Outreach [facility] [address], [place] [phone] Christine Lundy MD Pre-visit Planning (SDOH negative. Tobacco screening negative.) 11/14/2024 Telephone [facility] [address] [place] [address] Christine Lundy MD Appointment Request 11/13/2024 Orders Only GENERIC EXTERNAL DATA DEPARTMENT Provider, Generic External Data 11/06/2024 Refill [facility] [address] [place] [address] Christine Lundy MD Nasal congestion 10/04/2024 Telephone [facility] [address] [place] [address] Hillary Henley MA from Last 3 Months [...] Additional history exists Zoster Vaccines Completed 07/29/2020, 1208/2019, 05/26/2020, Additional history exists Pneumococcal Vaccine: 50+ [...] EDT Narrative 11/28/2024 4:16 PM EDT ? [facility] ?[address] ?[place] [address] ? Ultrasound Report ? Signed ? Patient: Colon,Palomo S ?MR#: [id number] ?? 71 ? : 1955 ?Acct:[id number] ? Age/Sex: 69 / M ?ADM Date: 11/28/24 ? Loc: HO.US ? Attending Dr: Christine Lundy MD ? Ordering Physician: Christine Lundy ?? Date of Service: 11/28/24 ?? Procedure(s): US scrotum ?? Accession Number(s): [id number] ? cc: Christine Lundy ? EXAMINATION: ?? [...] DD/ 1522 ? TD/TT: 11/28/24 1548 ? Registered Nurses: ? Procedure Note Lucas Sánchez - 11/28/[address] [address] Ultrasound Report Signed Patient: Palomo Falcon [facility]#: [id number] 71 : 1955cct:[id number] Age/Sex: 69 / MADM Date: 11/28/24 Loc: HO.US Attending Dr: Christine Lundy MD Ordering Physician: Christine Lundy Date of Service: 11/28/24 Procedure(s): US scrotum Accession Number(s): [id number] cc: Christine Lundy EXAMINATION: US SCROTUM CLINICAL [...] 11/28/24 1613 DD/ 1522 TD/TT: 11/28/24 1548 Registered Nurses: Christine Lundy MD [facility] PROCEDURES Final Result * Gross and Microscopic Level 3 (11/13/2024 2:47 PM EDT) 11/13/2024 2:47 PM EDT 11/14/2024 8:45 AM EDT [facility] - 11/15/2024 2:30 PM EDT ----- ------- Name: Palomo Falcon ? Age/Sex: 69/M ? : 1955 Unit#: [id number] ?? Attend Dr: Johnny Penny MD ?Re11/13/24 ?Status: DEP SDC ? Location: HO.SSS ?Disch: ? ----- ------- SPEC : [id number] ? RECD: 11/14/24 ? STATUS: ??SOUT ? REQ NUM: [id number] ? ZAIN: 11/13/24 ? SUBM DR: Johnny [...] Copies To: ?? Johnny Penny MD ?? [facility] Services ?? [address] [place] [address] [address] ?? [place] [address] ?? [phone] ?? [email or web address] ?? Christine Lundy ?? [address] [facility] ?? [place] [address] ?? [phone] ----- ------- Signed (signature on file) Sunita [place] 11/15/24 1430 ? ----- ------- ? END OF REPORT ? us Generic External Data Provider LAB CYTOLOGY DREW CHAMBERS Final Result [facility] [address] [place] [address] [phone] * Gross and Microscopic Level 2 (11/13/2024 2:27 PM EDT) 11/13/2024 2:27 PM EDT 11/14/2024 10:23 AM EDT [place] [facility] - 11/15/2024 2:56 PM EDT ----- ------- Name: Palomo Falcon ? Age/Sex: 69/M ? : 1955 Unit#: [id number] ?? Attend Dr: Johnny Penny MD ?Re11/13/24 ?Status: DEP SDC ? Location: HO.SSS ?Disch: ? ----- ------- SPEC : [id number] ? RECD: 11/14/24 ? STATUS: ??SOUT ? REQ NUM: [id number] ? ZAIN: 11/13/24-148 ? SUBM DR: Johnny Penny MD ? ENTERED: ??11/14/24-1040 ?SP TYPE: Cytology ? OTHR DR: Christine [...] Copies To: ?? Johnny Penny MD ?? [facility] ?? [address] [place], [place] [address] [address] ?? [place] [address] ?? [phone] ?? [email or web address] ?? Christine Lundy ?? [address] [facility] ?? [place] [address] ?? [phone] ? CONTINUED ON NEXT PAGE ----- ------- Name: Palomo Falcon ? Age/Sex: 69/M ? : 1955 Unit#: [id number] ?? Attend Dr: Johnny Penny MD ?Re11/13/24 ?Status: DEP SDC ? Location: HO.SSS ?Disch: ? ----- ------- SPEC : [id number] ? RECD: 11/14/24 ? STATUS: ??SOUT ? REQ NUM: [id number] ? ZAIN: 11/13/24-7677 ? SUBM DR: Johnny Penny MD ? ENTERED: ??11/14/24-1040 ?SP TYPE: Cytology ? OTHR DR: Christine Lundy ? ORDERED: ??Gross Micro L2, Cell Block ? ----- ------- Signed (signature on file) Luciano Kearney MD 11/15/24 1413 ? ----- ------- ? END OF REPORT ? us Generic External Data Provider LAB CYTOLOGY DAYOE RABDA Final Result [facility] [address] [place], [place] [phone] * (ABNORMAL) Lipid Panel, Standard (06/07/2024 8:07 AM EDT) Triglycerides 145 <150 mg/dL [facility] Comment:Desirable Triglyceri de: less than 150 mg/dLBorderline High Triglyceride 150-199 mg/dLHigh Triglyceride: 200-499 mg/dLVery High Triglyceride: greater than or equal to 5OO mg/dL Cholesterol 209(H) <200 mg/dL [facility] Comment:Desirable Cholestero l: less than 200 mg/dLBorderline High Cholesterol: 200-239 mg/dLHigh Cholesterol: greater than 239 mg/dL LDL Cholesterol Calculated 113(H) <100 mg/dL [facility] Comment:Desirable LDL: less than 100 mg/dLNear Optimal/Above Optimal LDL: 110- 129 mg/dLBorderline High LDL: 130-159 mg/dLHigh LDL: 160-189 mg/dLVery High LDL: greater than or equal to 190 mg/dL HDL Cholesterol 67 >40 mg/dL [facility] Comment:Desirable HDL: great er than 40 mg/dL Note: This HDL assay may give artificially low results in patients with liver disease. Blood Venous blood specimen / Unknown 06/07/2024 8:07 AM EDT 06/07/2024 11:16 AM EDT us Lissy Breaux MD LAB BLOOD ORDERABLES Final Re sult [facility] [address] [place] [address] [phone] from Last 3 Months or Most Recently Relevant to Health Maintenance Insurance [facility] Care Teams Single Wire Saw Operator Relationship Specialty Start Date End Date Christine Lundy MD [address] [place] [address] PCP - General Family Medicine 10/06/20
--- OUTSIDE RECORDS SUMMARY | 2024-12-14 15:19 | XMS_ITS | Encounter Summary ---
Author Organization [facility], Address [address] [place] [address] Phone Care Team Providers Care Account Services Coordinator Name Role Phone Christine Lundy MD Primary Care Provider [phone] Encounter Details Date Type Department Care Team (Late st Contact Info) Description 05/29/2024 Documentation Only [facility], - Sheryl Malone [address] [place] [phone] Blanca Hunt [address] [place] [address] Social History Tobacco Use Types [...] on filedocumented in this encounter Care Teams Account Services Coordinator Relationship Specialty Start Date End Date Christine Lundy MD PCP - General Clinical Data Research 05/04/22 documented as of this encounter
--- OUTSIDE RECORDS SUMMARY | 2024-12-14 15:19 | XMS_ITS | Encounter Summary ---
Author Organization [facility] Address [address] [place] [address] Phone Care Team Providers Care Scrap Shear Operator Name Role Phone Christine Lundy MD Primary Care Provider Encounter Details Date Type Department Care Team (Late st Contact Info) Description 04/28/2022 Documentation Only [facility], [address] [place] [address] Jose Negron MD [address] [place] [place] [address] Social History Tobacco Use Types [...] on filedocumented in this encounter Care Teams Scrap Shear Operator Relationship Specialty Start Date End Date Christine Lundy MD PCP - General Traffic Superintendent 05/04/22 documented as of this encounter
--- OUTSIDE RECORDS SUMMARY | 2024-12-14 15:19 | XMS_ITS | Clinical Summary ---
Author Organization [facility], Address [address] [place] [address] [place] [address] Phone Care Team Providers Care Med Dir Name Role Phone Christine Lundy MD Primary [...] of calculus of kidney 01/23/2020 01/28/2021 Immunizations Immunization Administration Dates Next Due Influenza (IM) Preservative [...] Colorectal Cancer Screening: Sigmoidoscopy 2002 Pneumococcal Vaccine: 50+ Years Completed 07/09/2022, 12/21/2018 Pneumococcal Vaccine: Peds (0 to 5 Years) and At-Risk Patients (6 to 49 Years) Discontinued 07/09/2022, 12/21/2018 Influenza Vaccine Completed 05/25/2024, , 05/29/2021, Additional history exists Hepatitis B Vaccine Aged Out No longe r eligible based on patient's age to complete this topic Insurance [facility] Care Dual SNP ([id number]) [place] [id number] Care Teams Med Dir Relationship Specialty Start Date End Date Christine Lundy MD PCP - General Coach Tour Driver 05/04/22
--- OUTSIDE RECORDS SUMMARY | 2024-12-14 15:19 | XMS_ITS | Continuity of Care Document ---
Author Organization [facility] Address [address] [place] [phone] Care Team Providers Care Washtub Worker Name Role Phone Kamron VARGAS, Christine Bullard Primary Care Physician Encounter [facility] Date(s): 11/08/24 - 12/08/[address] [address] Encounter Type: Triage Allergies, Adverse Reactions, Alerts No Known Allergies Medications amLODIPine 5 mg oral tablet 5 mg, 1, tablet, By Mouth, Daily in AM, Refills 0, Maintenance, 10/11/17 11:15:33 AM EST Start Date: 10/11/17 Status: Ordered Repeat number: 1 dexamethasone/neomycin/polymyxin B ophthalmic 1 mg-3.5 mg-89002 u/ml suspension 5 mL, 0 Refill(s), INSTILL 1 DROP INTO BOTH EYES FOUR TIMES A DAY USE FOR 2 WEEKS THEN STOP, 0 Refills, 03/27/24 8:50:00 AM EDT, Partial fill upon patient request if the prescription is for a scheduleII opioid drug. Start Date: 03/27/24 Status: Ordered Repeat number: 1 ergocalciferol 98440 iu oral capsule 4 each, 0 Refill(s), [...] Ordered Repeat number: 1 hydrocortisone/neomycin/polymyxin B otic 1%-0.35%-72352 u/ml solution 10 mL, 0 Refill(s), PUT [...] 30% ( moderate disability ) on 02/12/15 Social History Social History Type Response Smoking Status Never smoker; Tobacc o user in household: No entered on: 10/01/14 Sex Sex Representation Male (finding) Patient Care team information Care Team Personnel Name: Christine Lundy MD Position: [facility] Physician - Primary Care Member Role: PCP Address: [address] [place] [address], [address] Telecom: Name: Alyson Morgan Position: [facility] AMB Nurse Member Role: Lifetime Consulting Physician Care Team Related Persons Name: NIKA DOWELL Insurance Providers Guarantor name: TANMAY FABER [employer] Plan Information #: 1 Payer: [facility] Member Number: NA Policy Number: NA Group Number: NA
--- OUTSIDE RECORDS SUMMARY | 2024-12-14 15:19 | XMS_ITS | Data Portability ---
Author Organization [employer] Address [address] [place] [phone] Care Team Providers Care Duct Layer Name Role Phone [facility] OTHER [phone] [facility] OTHER Assessment Encounter Date Assessment Date Assessment LastModified by Organization Details LastModified Time 04/09/2022 04/09/2022 I have reviewed and agree with the assessment and plan as documented by the header up. I provided real-time medical direction for this [...] [id number] Marcial Alcaraz MD Main - [facility] [address] [place] [phone] 04/09/2022 15:03:37 06/03/2022 11:17:21 Edema of lower extremity [id number] R60.0 [id number] Shailesh Leong MD Main - [facility] [address] [place] [phone] 07/16/2024 16:38:11 07/16/2024 22:38:07 Strain of muscle of right lower leg [id number] S86.911A Health Concerns Section Related Observation LastModified by Organization Detai ls LastModified Time None Recorded Concern Status LastModified by Organization Details LastModified Time None Recorded Advance Directives Directive None Recorded Payers Encounter Date Sequence Insurance Name Policy Number Policy Aquino Covered Member ID Aquino Member ID Guarantor Name 04/09/2022 1 [facility] - DOS PRIOR TO 2022 - DUAL ELIGIBLE (MEDICARE REPLACEMENT/ADV ANTAGE - HMO) Palomo Colon [id number] Palomo Song Colon 07/16/2024 1 [facility] - DOS ON OR AFTER 2022 - DUAL ELIGIBLE - [employer]ISON [employer] AND ONE CARE (MEDICARE REPLACEMENT/ADV ANTAGE - HMO) Palomo Colon [id number] Palomo Song Colon Notes Date Note Type [...] ................... ................... ................... ................... ................... ................... ........ Advertising Columnist Note: vitals, assessment, CMP ................... ................... ................... ................... ................... ................... ................... ........ Disposition: Fulfilled Marcial Alcaraz MD [address] [facility],[address], [place], [address], [facility] [employer] PvtNAVID MUÑOZ 05/28/2022 17:51:08 07/16/2024 text/html HPI: Patient [...] ................... ................... ................... ................... ................... ................... ........ Advertising Columnist Note From Raza Perez: Dispatched to stated [...] any h/a, dizziness, cp, sob or nausea. [facility] was consulted. Pt was informed of red [...] ................... ................... ................... ................... ................... ................... ........ [facility] Consulted: Shailesh Leong ................... ................... ................... ................... ................... ................... ................... ........ Disposition: Fulfilled Shailesh Leong MD [address] [facility],[address], [place], [address], ELIF PARK, NAVID 07/16/2024 18:58:20
--- OUTSIDE RECORDS SUMMARY | 2024-12-14 15:19 | XMS_ITS | Encounter Summary ---
Author Organization [facility], Address [address] [place] [address] Phone Care Team Providers Care Simplex Printer Installer Name Role Phone Christine Lundy MD Primary Care Provider Encounter Details Date Type Department Care Team (Late st Contact Info) Description 05/29/2024 Documentation Only [facility], - Sheryl Malone [address] [place] [phone] Blanca Hunt [address] [place] [address] Social History Tobacco Use Types [...] on filedocumented in this encounter Care Teams Simplex Printer Installer Relationship Specialty Start Date End Date Christine Lundy MD PCP - General Personal Injury Attorney 05/04/22 documented as of this encounter
--- OUTSIDE RECORDS SUMMARY | 2024-12-14 15:19 | XMS_ITS | Encounter Summary ---
Author Organization [employer] Address [address] [facility] [address] [place] [address] Care Team Providers Care Family Program Specialist Name Role Phone Christine Lundy MD Primary Care Provider [phone] Encounter Details Date Type Department Care Team (Late st Contact Info) Description 12/29/2022 Orders Only [facility] MEDICINE [address] [place] [address] Christine Lundy MD [address] [place], [place] [phone] Social History Tobacco Use Types Packs/Day Years [...] on filedocumented in this encounter Care Teams Family Program Specialist Relationship Specialty Start Date End Date Christine Lundy MD [address] [place] [phone] PCP - General Family Medicine 10/06/20 documented as of this encounter
--- OUTSIDE RECORDS SUMMARY | 2024-12-14 15:19 | XMS_ITS | Encounter Summary ---
Author Organization [facility], Address [address] [place] [address] Phone Care Team Providers Care Environmental Analyst Name Role Phone Christine Lundy MD Primary Care Provider Encounter Details Date Type Department Care Team (Late st Contact Info) Description 05/29/2024 Documentation Only [facility], - Sheryl Malone [address] [place] [phone] Blanca Hunt [address] [place] [address] Social History Tobacco Use Types [...] on filedocumented in this encounter Care Teams Environmental Analyst Relationship Specialty Start Date End Date Christine Lundy MD PCP - General Relationship Mgr 05/04/22 documented as of this encounter
--- OUTSIDE RECORDS SUMMARY | 2024-12-14 15:19 | XMS_ITS | Encounter Summary ---
Author Organization [employer] Address [address] [facility] [address] [place] [address] Care Team Providers Care Front Office Supervisor Name Role Phone Christine Lundy MD Primary Care Provider [phone] Encounter Details Date Type Department Care Team (Late st Contact Info) Description 08/08/2024 Orders Only [facility] [address] [place], [place] [phone] ProviderChristel MD Social History Tobacco Use Types [...] on filedocumented in this encounter Care Teams Front Office Supervisor Relationship Specialty Start Date End Date Christine Lundy MD [address] [place] [phone] PCP - General Family Medicine 10/06/20 documented as of this encounter
--- OUTSIDE RECORDS SUMMARY | 2024-12-14 15:19 | XMS_ITS | Clinical Summary ---
Author Organization [facility] Address [address] [place] [address] Care Team Providers Care Mold Finisher Name Role Phone Unavailable Primary Care Provider Unavailabl e Medications Acetaminophen Extra Strength 500 MG Tab Take 1 tablet by mouth Every 4 (four) to 6 (six) hours as needed. 4 Active azelastine (Azelastine HCl) 0.1 % nasal spray SPRAY 2 SPRAY INTRANASALLY 2 TIMES A DAY FOR 28 DAYS ADMINISTER INTO EACH NOSTRIL 4 Active Vitamin D3 (CHOLECALCIFERO L) 50 MCG (1999 UT) capsule TAKE 1 CAPSULE (50 MCG) BY MOUTH IN THE MORNING Active fexofenadine (ALESHA) 60 MG tablet Take 60 mg by mouth Once before discharge. 4 Active finasteride (PROSCAR) 5 MG tablet Take 5 mg by mouth. 4 Active gabapentin (NEURONTIN) 100 MG capsule Take 100 mg by mouth. 4 Active lisinopril-hydr oCHLOROthiazide (PRINZIDE,ZESTO RETIC) 10-12.5 MG per tablet Take 1 tablet by mouth. Active oxyCODONE (ROXICODONE) 5 MG immediate release tablet TAKE 1 TABLET EVERY 6 HOURS NEEDED FOR BREAKTHROUGH PAIN. 4 Active tamsulosin (FLOMAX) 0.4 MG capsule Take 0.4 mg by mouth nightly. Active Active Problems Problem Noted Date Diagnosed Date Acute idiopathic gout of left knee 05/25/2024 Overview (07/31/2024): Dx 05/18/24 at [facility] Last Assessment & Plan: Finish prednisone [...] short term relief Recommend reaching out to [facility] for repeat visit due to worsening [...] Continue CPAP for now as prescribed by [facility] for consideration of Inspire surgery Immunizations Immunization Administration Dates Next Due Influenza (AFLURIA/FLUZONE) Inactivated/Split [...] at Not on file Legal Sex Male 6:38 PM EST Gender Identity Not on file [...] patient's age to complete this topic Insurance [facility] on file
== END 2024-12-14 16:13 | disposition home or self-care (01) ==
LOC: HO.HUSH 15:15
PROVIDERS: PCP General Practice; Visit Provider Urology
DX: Z13.9 Encounter for screening, unspecified (principal)

== ENCOUNTER → 2024-12-14 15:15 | Outpatient (BNVA) | payer OTHER, SELFPAY | PROVIDERS: PCP General Practice; Visit Provider Urology | DX: N28.1 Cyst of kidney, acquired (principal); N20.0 Calculus of kidney; N40.1 Benign prostatic hyperplasia with lower urinary tract symptoms; N13.8 Other obstructive and reflux uropathy; N18.9 Chronic kidney disease, unspecified; Z87.438 Personal history of other diseases of male genital organs | CPT/HCPCS: 81003; 99212 ==

== ENCOUNTER 2024-12-20 12:55 | Outpatient (AMB) | payer OTHER, SELFPAY ==
--- NOTE | 2024-12-20 13:09 | MHC.OFFVIS ---
Vital Signs 12/20/24 13:22 Height 5 ft 8.5 in Weight 229 lb BMI 34.3 BP 137/62 Blood Pressure Location Lt brachial Position Sitting Pulse 49 L Intake Visit Reasons: inquinal hernia Intake Note: Patient is seen in office for evaluation of a inguinal hernia. Pt c/o: has surgery last month and since has notice left testicle is enlarged, had ultrasound done and was told is a hernia, admits to pain, denies feeling a lump ultrasound:11/28/24 Irish Moss Bleacher Required: No Accompanied by: Self / Same As Patient Allergies No Known Allergies Allergy (Verified 12/20/24 13:18) HPI HPI inquinal hernia: Details: 69-year-old male referred for an inguinal hernia. He is being treated for hydrocele by the Urology Service and had a hydrocele surgery on the left side last month He was sent for an ultrasound after this. This had shown question of a fat containing right inguinal hernia. The patient however does not have any pain or tenderness in the right groin. He says he does not feel any mass at all. He says his pain is mostly from the left scrotum he had the surgery for his hydrocele He denies any GI complaints. He walks with a cane because of his chronic back pain. 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, 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 Review of Systems Const Denies chills and Denies fever(s) Card Denies chest pain, Denies dyspnea and Denies dyspnea on exertion Resp Denies cough, Denies dyspnea and Denies dyspnea on exertion GI Denies hematochezia and Denies change in bowel habits Denies hematuria and Denies difficulty urinating Musc Reports back pain and Reports limited range of motion Neuro Denies focal weakness and Denies convulsions Psych Denies depression and Denies mood swings Physical Exam Vital Signs: Last Vital Signs Pulse 49 L 12/20/24 13:22 BP 137/62 12/20/24 13:22 BMI result Body Mass Index 34.3 Const Other: Appears obese, walks with a cane General: comfortable and no acute distress Orientation/consciousness: patient oriented x3 Neck Neck: Yes no lymphadenopathy Resp Auscultation: clear to auscultation bilaterally Cardio Rhythm: regular rhythm GI Other: No palpable hernia on both the left and right groin, even with a Valsalva, no pain or tenderness in the inguinal areas Palpation (GI): Soft to palpation, nontender and no guarding Other: Some tenderness on the left scrotum Neuro General: patient oriented x3 Assessment & Plan Assessment & Plan (1) Right inguinal hernia: Code(s): K40.90 - Unilateral inguinal hernia, without obstruction or gangrene, not specified as recurrent Category: Medical Plan He had an ultrasound for his hydrocele and this shows a question of a right inguinal hernia which was fat containing. Clinical exam today does not show any obvious hernia even with Valsalva. The patient was says he does not have any pain in the right groin. He does not feel any mass I did offer him the option of proceeding with a right inguinal hernia repair based on the ultrasound findings. However, he says that he does not have any pain, tenderness or any mass in the area. He says his main complaint is his scrotal pain from hydrocele. He he is being followed by Urology for this He would like to hold off on any surgical intervention for now. I did tell him that I can see him in the office in about 3 months to see how is doing. He says he is comfortable with the plan. Coding Level of Care Code New Pt Level 3 (13547) Diagnoses Right inguinal hernia K40.90
[2024-12-20 13:22] VITALS: BP 137/62; PULSE 49; BMI 34.3
--- OUTSIDE RECORDS SUMMARY | 2024-12-20 15:12 | XMS_ITS | Encounter Summary ---
Author Organization [employer] Address [address] [facility] [address] [place] [address] Care Team Providers Care Software Tools Build Engineer Name Role Phone Christine Lundy MD Primary Care Provider [phone] Reason for Visit * Reason Onset Date Comments Nurse Triage 03/05/2024 Encounter Details Date Type Department Care Team ([facility] st Contact Info) Description 03/05/2024 Telephone [facility] MEDICINE [address] [place], [place] [phone] Christine Lundy MD [address] [place], [place] [phone] Nurse Triage Social History Tobacco Use Types [...] tests. Pt is advised to come to [facility] today open till 800pm for provider to [...] accepted this outcome Please contact pt @ [phone] documented in this encounter Plan of Treatment Not on file documented as of this encounter Visit Diagnoses Not on filedocumented in this encounter Care Teams Software Tools Build Engineer Relationship Specialty Start Date End Date Christine Lundy MD [address] [place] [address] PCP - General Family Medicine 10/06/20 documented as of this encounter
--- OUTSIDE RECORDS SUMMARY | 2024-12-20 15:13 | XMS_ITS | Encounter Summary ---
Author Organization [facility], Address [address] [place] [address] Phone Care Team Providers Care Job Analyst Name Role Phone Christine Lundy MD Primary Care Provider [phone] Encounter Details Date Type Department Care Team (Late st Contact Info) Description 05/29/2024 Documentation Only [facility], - Sheryl Malone [address] [place] [phone] Balnca Hunt [address] [place] [address] Social History Tobacco Use Types [...] on filedocumented in this encounter Care Teams Job Analyst Relationship Specialty Start Date End Date Christine Lundy MD PCP - General Shotblaster 05/04/22 documented as of this encounter
--- OUTSIDE RECORDS SUMMARY | 2024-12-20 15:13 | XMS_ITS | Clinical Summary ---
Author Organization [employer] Address [address] [facility] 7t [place] [address] Care Team Providers Care Forest Management Professor Name Role Phone Christine Lundy MD Primary Care Provider [phone] Allergies No known active allergies Medications sildenafil (Viagra) 100 MG tablet Take 1/2 to 1 tablet by mouth as needed 05/11/20 21 Active Diclofenac Sodium 1 % gel [...] 09/05/19 24 Active neomycin-polym yxin-dexAMETHa sone (Maxitrol) 3.5-80834-0.1 ophthalmic suspension INSTILL 1 DROP INTO BOTH [...] 24 Active ergocalciferol (Vitamin D2) 1.25 MG (97363 UT) capsule TAKE 1 CAPSULE (50,000 UNITS [...] tablet by mouth Once per day. 11/24/19 25 Active moxifloxacin (Vigamox) 0.5 % ophthalmic solution INSTILL 1 DROP INTO BOTH EYES 4 TIMES A DAY FOR 1 WEEK AFTER SURGERY 06/11/[address] 500 MG tablet delayed-releas e Take 1 tablet by mouth 2 times daily. 11/24/19 25 Active oxyCODONE (Roxicodone) 5 MG immediate release tablet TAKE 1 TABLET EVERY 6 HOURS NEEDED FOR BREAKTHROUGH PAIN. 06/19/20 24 Active glucose blood (FREESTYLE LITE) test strip USE TO TEST BLOOD SUGAR TWICE A DAY 100 each 1 12/19/19 25 Active Glucose Blood (COOL BLOOD GLUCOSE TEST STRIPS ) Use 1 strip to skin route twice a day 06/30/20 18 025 Discontinued glucose blood (FREESTYLE LITE) test strip every 12 (twelve) hours. 06/15/20 025 Discontinued mupirocin (Bactroban) 2 % ointment Apply topically 3 times daily for 10 days. 22 g 11/28/19 25 025 Active Problems Problem Noted Date Diagnosed Date Unilateral recurrent inguina l hernia without obstruction or gangrene 11/29/2024 Swelling of left testicle 11/27/2024 Assessment & Plan (11/27/2024 12:51 PM EDT): It feels as though the scrotal contents may now include a hernia sac. Will obtain stat ultrasound and refer to general surgery if that is the case Pt has followup with Urology 12/14/24 Try jockrap for more support Deviated septum 11/08/2024 Bilateral [...] knee 05/25/2024 Overview (05/25/2024): Dx 05/18/24 at [facility] [place] Assessment & Plan (05/25/2024 3:11 PM EDT): Finish prednisone course If still symptomatic may take up to seven days of Naproxen 250mg BID. His CrCl is between 30 and 60, so CAD recommends using the lowest dose NSAID for [...] short term relief Recommend reaching out to [facility] for repeat visit due to worsening [...] Pollock 12/01/22 Benign prostatic hyperplasia with post-void drarnulfo floyd 11/19/2022 Assessment & Plan (03/16/2024 9:43 AM [...] Continue CPAP for now as prescribed by [facility] ENT for consideration of [...] Encounters Date Type Department Care Team Description 12/18/2024 Refill [facility] [address] [place] [address] Christine Lundy MD 11/30/2024 Telephone [facility] [address] [place] [phone] Christine Lundy MD Results 11/26/2024 4:00 PM EDT Office Visit [facility] [address] [place] [phone] Christine Lundy MD Swelling of left testicle (Primary Dx); Obstructive sleep apnea syndrome; Dietary counseling; Exercise counseling; Class 1 obesity with serious comorbidity and body mass index (BMI) of 34.0 to 34.9 in adult, unspecified obesity type; Hypertensive kidney disease, stage III (CMS/HCC); Unilateral recurrent inguinal hernia without obstruction or gangrene 11/26/2024 Travel 11/19/2024 Patient Outreach [facility] [address] [place] [address] Christine Lundy MD Pre-visit Planning 11/19/2024 Patient Outreach [facility] [address] [place] [address] Christine Lundy MD Pre-visit Planning (SDOH negative. Tobacco screening negative.) 11/14/2024 Telephone [facility] [address] [place] [address] Christine Lundy MD Appointment Request 11/13/2024 Orders Only GENERIC EXTERNAL DATA DEPARTMENT Provider, Generic External Data 11/06/2024 Refill [facility] [address] [place] [address] Christine Lundy MD Nasal congestion 10/04/2024 Telephone [facility] [address] [place] [address] Hillary Henley MA from Last 3 Months [...] EDT Narrative 11/28/2024 4:16 PM EDT ? [facility] ?[address] ?[place] [address] ? Ultrasound Report ? Signed ? Patient: Colon,Palomo S ?MR#: [id number] ?? 71 ? : 1955 ?Acct:[id number] ? Age/Sex: 69 / M ?ADM Date: 04/02/25 ? Loc: HO.US ? Attending Dr: Christine Lundy MD ? Ordering Physician: Christine Lundy ?? Date of Service: 11/28/24 ?? Procedure(s): US scrotum ?? Accession Number(s): [id number] ? cc: Christine Lundy ? EXAMINATION: ?? [...] DD/ 1522 ? TD/TT: 11/28/24 1548 ? Pants Closer: ? Procedure Note Donotuseinterpreter, Image - 11/28/2024 [place] [address] Ultrasound Report Signed Patient: Palomo Falcon [facility]#: [id number] 71 : 1955cct:[id number] Age/Sex: 69 / MADM Date: 11/28/24 Loc: HO.US Attending Dr: Christine Lundy MD Ordering Physician: Christine Lundy Date of Service: 11/28/24 Procedure(s): US scrotum Accession Number(s): [id number] cc: Christine Lundy EXAMINATION: US SCROTUM CLINICAL [...] 11/28/24 1613 DD/ 1522 TD/TT: 11/28/24 1548 Pants Closer: Christine Lundy MD IMG US PROCEDURES Final Result * Gross and Microscopic Level 3 (11/13/2024 2:47 PM EDT) 11/13/2024 2:47 PM EDT 11/14/2024 8:45 AM EDT [facility] - 11/15/2024 2:30 PM EDT ----- ------- Name: Palomo Falcon ? Age/Sex: 69/M ? : 1955 Unit#: [id number] ?? Attend Dr: Johnny Penny MD ?Re11/13/24 ?Status: DEP SDC ? Location: HO.SSS ?Disch: ? ----- ------- SPEC : [id number] ? RECD: 11/14/24 ? STATUS: ??SOUT ? REQ NUM: [id number] ? ZAIN: 11/13/24740 ? SUBM DR: Johnny Penny MD ? [...] cyst, entirely submitted in a cassette labeled AAngela CEDS Copies To: ?? Johnny Penny MD ?? [facility] ?? [address] ?? [place] [address] ?? [phone] ?? [email or web address] ?? Christine Lundy ?? [address] [facility] ?? [place] [address] ?? [phone] ----- ------- Signed (signature on file) Sunita Nora 11/15/24 1430 ? ----- ------- ? END OF REPORT ? us Generic External Data Provider LAB CYTOLOGY DREW CHAMBERS Final Result [facility] [address] [place] [address] [phone] * Gross and Microscopic Level 2 (11/13/2024 2:27 PM EDT) 11/13/2024 2:27 PM EDT 11/14/2024 10:23 AM EDT Narrative [facility] - 11/15/2024 2:56 PM EDT ----- ------- Name: Palomo Falcon ? Age/Sex: 69/M ? : 1955 Unit#: [id number] ?? Attend Dr: Johnny Penny MD ?Re11/13/24 ?Status: DEP SDC ? Location: HO.SSS ?Disch: ? ----- ------- SPEC : [id number] ? RECD: 11/14/24-1022 ? STATUS: ??SOUT ? REQ NUM: [id number] ? ZAIN: 11/13/24-588 ? SUBM DR: Johnny Penny MD ? [...] Copies To: ?? Johnny Penny MD ?? [facility] ?? [address] ?? [place] [address] ?? [phone] ?? [email or web address] ?? Christine Lundy ?? [address] ?? [place] ?? [phone] ? CONTINUED ON NEXT PAGE ----- ------- Name: Palomo Falcon ? Age/Sex: 69/M ? : 1955 Unit#: [id number] ?? Attend Dr: Johnny Penny MD ?Re11/13/24 ?Status: DEP SDC ? Location: HO.SSS ?Disch: ? ----- ------- SPEC : [id number] ? RECD: 11/14/24-1022 ? STATUS: ??SOUT ? REQ NUM: [id number] ? ZAIN: 11/13/24-613 ? SUBM DR: Johnny Penny MD ? ENTERED: ??11/14/24-1 ?SP TYPE: Cytology ? OTHR DR: Christine Lundy ? ORDERED: ??Gross Micro L2, Cell Block ? ----- ------- Signed (signature on file) Luciano Kearney MD 11/15/24 1413 ? ----- ------- ? END OF REPORT ? us Generic External Data Provider LAB CYTOLOGY DAYOE TRISH Final Result [facility] [address] [place] [address] [phone] * (ABNORMAL) Lipid Panel, Standard (06/07/2024 8:07 AM EDT) Triglycerides 145 <150 mg/dL [facility] Comment:Desirable Triglyceri de: less than 150 mg/dLBorderline High Triglyceride 150-199 mg/dLHigh Triglyceride: 200-499 mg/dLVery High Triglyceride: greater than or equal to 5OO mg/dL Cholesterol 209(H) <200 mg/dL [facility] Comment:Desirable Cholestero l: less than 200 mg/dLBorderline High Cholesterol: 200-239 mg/dLHigh Cholesterol: greater than 239 mg/dL LDL Cholesterol Calculated 113(H) <100 mg/dL [facility] Comment:Desirable LDL: less than 100 mg/dLNear Optimal/Above Optimal LDL: 110- 129 mg/dLBorderline High LDL: 130-159 mg/dLHigh LDL: 160-189 mg/dLVery High LDL: greater than or equal to 190 mg/dL HDL Cholesterol 67 >40 mg/dL [facility] Comment:Desirable HDL: great er than 40 mg/dL Note: This HDL assay may give artificially low results in patients with liver disease. Blood Venous blood specimen / Unknown 06/07/2024 8:07 AM EDT 06/07/2024 11:16 AM EDT us Lissy Breaux MD LAB BLOOD ORDERABLES Final Re sult [facility] [address] [place] [address] [phone] from Last 3 Months or Most Recently Relevant to Health Maintenance Insurance [facility] Care Teams Forest Management Professor Relationship Specialty Start Date End Date Christine Lundy MD [address] [place] [phone] PCP - General Family Medicine 10/06/20
--- OUTSIDE RECORDS SUMMARY | 2024-12-20 15:13 | XMS_ITS | Encounter Summary ---
Author Organization [employer] Address [address] [facility] 7t [place] [address] Care Team Providers Care Route Sales Representative Name Role Phone Christine Lundy MD Primary Care Provider [phone] Encounter Details Date Type Department Care Team (Late st Contact Info) Description 08/08/2024 Orders Only [facility] [address] [place], [place] [phone] ProviderChristel MD Social History Tobacco Use Types [...] on filedocumented in this encounter Care Teams Route Sales Representative Relationship Specialty Start Date End Date Christine Lundy MD [address] [place] [address] PCP - General Family Medicine 10/06/20 documented as of this encounter
--- OUTSIDE RECORDS SUMMARY | 2024-12-20 15:13 | XMS_ITS | Encounter Summary ---
Author Organization [employer] Address [address] [facility] 7t [place] [address] Care Team Providers Care Mat Worker Name Role Phone Christine Lundy MD Primary Care Provider [phone] Reason for Visit * Reason Onset Date Comments Nurse Triage 07/18/2024 Encounter Details Date Type Department Care Team ([facility] st Contact Info) Description 07/18/2024 Telephone [facility] [address] [place], [place] [phone] Christine Lundy MD [address] [place], [place] [phone] Nurse Triage Social History Tobacco Use Types [...] on filedocumented in this encounter Care Teams Mat Worker Relationship Specialty Start Date End Date Christine Lundy MD [address] [place] [address] PCP - General Family Medicine 10/06/20 documented as of this encounter
--- OUTSIDE RECORDS SUMMARY | 2024-12-20 15:13 | XMS_ITS | Data Portability ---
Author Organization [employer] Address [address] [place] [phone] Care Team Providers Care Apprentice Stylist Name Role Phone [facility] OTHER [facility] OTHER Assessment Encounter Date Assessment Date Assessment LastModified by Organization Details LastModified Time 04/09/2022 04/09/2022 I have reviewed and agree with the assessment and plan as documented by the manufacturing automation engineer. I provided real-time medical direction for this [...] 3298 Marcial Alcaraz MD Main - [facility] [address] [place] [phone] 04/09/2022 15:03:37 06/03/2022 11:17:21 Edema of lower extremity 174612927 R60.0 [id number] Shailesh Leong MD Main - [facility] [address] [place] [phone] 07/16/2024 16:38:11 07/16/2024 22:38:07 Strain of muscle of right lower leg [id number] 4614869 S86.911A Health Concerns Section Related Observation LastModified by Organization Detai ls LastModified Time None Recorded Concern Status LastModified by Organization Details LastModified Time None Recorded Advance Directives Directive None Recorded Payers Encounter Date Sequence Insurance Name Policy Number Policy Aquino Covered Member ID Aquino Member ID Guarantor Name 04/09/2022 1 [facility] - DOS PRIOR TO 2022 - DUAL ELIGIBLE (MEDICARE REPLACEMENT/ADV ANTAGE - HMO) Palomo Colon [id number] Palomo Song Colon 07/16/2024 1 [facility] - DOS ON OR AFTER 2022 - DUAL ELIGIBLE - CORRECTION OPTIONS AND ONE CARE (MEDICARE REPLACEMENT/ADV ANTAGE - HMO) Palomo Colon [id number] Palomo Song Colon Notes Date Note Type [...] ................... ................... ................... ................... ................... ................... ........ Editor Managing Director Note: vitals, assessment, CMP ................... ................... ................... ................... ................... ................... ................... ........ Disposition: Fulfilled Marcial Alcaraz MD [address] [facility],[address], [place], [address], [facility] NCR TehchnosolutionsNAVID MUÑOZ 05/28/2022 17:51:08 07/16/2024 text/html HPI: Patient [...] ................... ................... ................... ................... ................... ................... ........ Editor Managing Director Note From Raza Perez: Dispatched to stated [...] any h/a, dizziness, cp, sob or nausea. [facility] was consulted. Pt was informed of red [...] ................... ................... ................... ................... ................... ................... ........ [facility] Consulted: Shailesh Leong ................... ................... ................... ................... ................... ................... ................... ........ Disposition: Fulfilled Shailesh Leong MD [address] [facility],[address], [place], [address], [place], NAVID 07/16/2024 18:58:20
--- OUTSIDE RECORDS SUMMARY | 2024-12-20 15:13 | XMS_ITS | Encounter Summary ---
Author Organization [facility] Address [address] [place] [address] Phone Care Team Providers Care Refund Clerk Name Role Phone Christine Lundy MD Primary Care Provider Encounter Details Date Type Department Care Team (Late st Contact Info) Description 04/28/2022 Documentation Only [facility], [address] [place] [address] Jose Negron MD [address] [place] [address] Social History Tobacco Use Types [...] on filedocumented in this encounter Care Teams Refund Clerk Relationship Specialty Start Date End Date Christine Lundy MD PCP - General Timber Skidder 05/04/22 documented as of this encounter
--- OUTSIDE RECORDS SUMMARY | 2024-12-20 15:13 | XMS_ITS | Clinical Summary ---
Author Organization [facility] Address [address] [place] [address] Care Team Providers Care Toll Repairer Central Office Name Role Phone Unavailable Primary Care Provider [...] knee 05/25/2024 Overview (07/31/2024): Dx 05/18/24 at [facility] ED Last Assessment & Plan: Finish prednisone [...] short term relief Recommend reaching out to [facility] for repeat visit due to worsening [...] Continue CPAP for now as prescribed by [facility] ENT for consideration of [...] patient's age to complete this topic Insurance [facility] on file
--- OUTSIDE RECORDS SUMMARY | 2024-12-20 15:13 | XMS_ITS | Data Portability ---
Author Organization [place] [facility] Address [address] [place] [address] Care Team Providers Care Securities Underwriter Name Role Phone DAVID BAI Primary Care Provider [phone] ELISABET CONLEY Referring Provider [phone] Assessment Encounter Date Assessment Date Assessment LastModified [...] his sleep disordered breathing with CPAP through [facility]. To help with his nasal congestion associated [...] mcg (0.03 %) nasal spray 2023 024 [id number], [address] [facility], [place], [address], 15:34:19 Patient TargetsNo targets recorded. Patient InstructionsNo [...] Recorded Time Obstructiv e sleep apnea syndrome [id number] Active 2021 Obstructive sleep apnea (adult) (pediatric) ; Note: Date Diagnosed: 06/18/2022 10:07 AM (G47.33) PALOMO JUNIOR MD [address] [address], [place], [phone], [facility] - [facility] 4 19:56:08 Vasomotor rhinitis 4017578 Active 2023 PALOMO JUNIOR MD [address] [address], [facility] [place], [phone], [facility] 4 15:34:25 Problem Notes None recorded. Procedures Surgical History None recorded. Imaging Results Imaging Date Name Status LastModified by [facility] Details LastModified Time 11/30/2023 sleep study, diagnostic (PROC) completed [email or web address] Information not available 05/03/2024 16:15:27 Procedure Notes None recorded. Medical Equipment None Reported. Allergies No known drug allergies Medications Name Sig Start Date Stop Date Status Note LastModified by Organization Details LastModified Time cyclobenz aprine 10 mg tablet active Medicati on ID: [id number] B rand Name: cycloben zaprine Send Method: [...] 80 mg tablet active Medicati on ID: 337230 B rand Name: atorvast atin Sen d [...] 5 mg tablet active Medicati on ID: 451366 B rand Name: jarod high Send Method: [...] tablet,ex tended release active Medicati on ID: 850167 B rand Name: Mapap Arthriti s Pain [...] 12.5 mg tablet active Medicati on ID: 107137 B rand Name: hydrochl orothiaz oscar Send [...] Updated DateTime 05/18/2024 172.72 cm 32.7 kg/m2 56440.36 g Maddy Jones [place] - [facility] 05/18/2024 15:18:08 Social History None recorded. Functional Status None recorded. Mental Status None recorded. Family History Nothing Reported. Medical History Condition Response Hypertension Y Kidney Disease Y Sleep Disorder Y Past Encounters Encounter ID Performer Location Encounter Start Date Encounter Closed Date Diagnosis/Indication Diagnosis SNOMED-CT Code Diagnosis ICD10 Code Diagnosis Note [id number] PALOMO JUNIOR MD [facility] [address] [place] [address] 05/18/2024 14:53:41 05/21/2024 07:26:01 Obstructive sleep apnea syndrome 69242876 G47.33 Vasomotor rhinitis 79561 03 J30.0 Health Concerns Section Related Observation LastModified by Organization Detai ls LastModified Time None Recorded Concern Status LastModified by Organization Details LastModified Time None Recorded Advance Directives Directive None Recorded Payers Encounter Date Sequence Insurance Name Policy Number Policy Aquino Covered Member ID Aquino Member ID Guarantor Name 05/18/2024 1 [facility] - DOS ON OR AFTER 2022 - MEDICARE [place]VANTAGE [place] (MEDICARE REPLACEMENT/ADV ANTAGE - PPO) Palomo Song Colon [id number] Palomo Song Colon Notes Date Note Type [...] wakes him up PALOMO JUNIOR MD [address] [facility],[address] [address], [place], [address], [facility] - [facility] 05/18/2024 15:35:38
--- OUTSIDE RECORDS SUMMARY | 2024-12-20 15:13 | XMS_ITS | Encounter Summary ---
Author Organization [facility], Address [address] [place] [address] Phone Care Team Providers Care Patent Prosecution Paralegal Name Role Phone Christine Lundy MD Primary Care Provider [phone] Encounter Details Date Type Department Care Team (Late st Contact Info) Description 05/29/2024 Documentation Only [facility], - Sheryl Malone [address] [place] [phone] Blanca Hunt [address] [place] [address] Social History Tobacco Use Types [...] on filedocumented in this encounter Care Teams Patent Prosecution Paralegal Relationship Specialty Start Date End Date Christine Lundy MD PCP - General Coffee Taster 05/04/22 documented as of this encounter
--- OUTSIDE RECORDS SUMMARY | 2024-12-20 15:13 | XMS_ITS | Continuity of Care Document ---
Author Organization [facility] ter Address [address] [place] [address]- Care Team Providers Care Hand Worker Name Role Phone Christine Lundy MD Primary Care Physician [phone] Encounter [facility] Date(s): 11/02/24 - 12/19/[address] [address]- Attending Physician: Ledy Ferrari MD Admitting Physician: Ledy Ferrari MD Referring Physician: Ledy Ferrari MD Encounter Type: Pre-Outpt Allergies, Adverse Reactions, Alerts No Known Allergies Medications amLODIPine 5 mg oral tablet 5 mg, 1, tablet, By Mouth, Daily in AM, Refills 0, Maintenance, 10/11/17 11:15:33 AM EST Start Date: 10/11/17 Status: Ordered Repeat number: 1 dexamethasone/neomycin/polymyxin B ophthalmic 1 mg-3.5 mg-40988 u/ml suspension 5 mL, 0 Refill(s), INSTILL 1 DROP INTO BOTH EYES FOUR TIMES A DAY USE FOR 2 WEEKS THEN STOP, 0 Refills, 03/27/24 8:50:00 AM EDT, Partial fill upon patient request if the prescription is for a scheduleII opioid drug. Start Date: 03/27/24 Status: Ordered Repeat number: 1 ergocalciferol 93055 iu oral capsule 4 each, 0 Refill(s), [...] Ordered Repeat number: 1 hydrocortisone/neomycin/polymyxin B otic 1%-0.35%-26060 u/ml solution 10 mL, 0 Refill(s), PUT [...] Team Personnel Name: Christine Lundy MD Position: [facility] Physician - Primary Care Member Role: PCP Address: [address] [place] [address], [address] Telecom: Name: Alyson Morgan Position: [facility] AMB Nurse Member Role: [employer] Consulting Physician Care Team Related Persons Name: NIKA DOWELL Insurance Providers Guarantor name: TANMAY ANGULO Health Plan Information #: 1 Payer: NA Member Number: [id number] Policy Number: NA Group Number: [facility] Health Plan Information #: 2 Payer: [facility] Member Number: NA Policy Number: NA Group Number: [id number]
--- OUTSIDE RECORDS SUMMARY | 2024-12-20 15:13 | XMS_ITS | Encounter Summary ---
Author Organization [employer] Address [address] [facility] 7t [place] [address] Care Team Providers Care Brush Machine Setter Name Role Phone Christine Lundy MD Primary Care Provider [phone] Reason for Visit * Reason Onset Date Comments Med Refill 12/18/2024 Encounter Details Date Type Department Care Team ([facility] st Contact Info) Description 12/18/2024 Refill [facility] [address] [place], [place] [phone] Christine Lundy MD [address] [place], [place] [phone] Social History Tobacco Use Types Packs/Day Years [...] encounter Miscellaneous Notes * Telephone Encounter - Krysta Anderson LPN - 12/18/2024 9:41 AM EDT Please review request. Last seen 11/26/24. * Telephone Encounter - Ruthie Falcon - 12/18/2024 9:23 AM EDT TC from pt requesting medication refill. Medications needing refill : glucose blood (FREESTYLE LITE) test strip To be sent to: [facility]/pharmacy #[id number] documented in this encounter Plan of Treatment Not on file documented as of this encounter Visit Diagnoses Not on filedocumented in this encounter Additional Health Concerns Assessment Noted Time PHQ-9 Depression Total Score: 0 11/27/19 25 4:00 PM EDT documented as of this encounter Care Teams Brush Machine Setter Relationship Specialty Start Date End Date Christine Lundy MD [address] [place] [address] PCP - General Family Medicine 10/06/20 documented as of this encounter
--- OUTSIDE RECORDS SUMMARY | 2024-12-20 15:13 | XMS_ITS | Encounter Summary ---
Author Organization [facility] [employer] Address [address] [facility] 7t [place] [address] Care Team Providers Care Bore Mill Operator For Plastic Name Role Phone Christine Lundy MD Primary Care Provider [phone] Encounter Details Date Type Department Care Team (Late st Contact Info) Description 12/29/2022 Orders Only [facility] [address] [place] [address] Christine Lundy MD [address] [place], [place] [phone] Social History Tobacco Use Types Packs/Day Years [...] on filedocumented in this encounter Care Teams Bore Mill Operator For Plastic Relationship Specialty Start Date End Date Christine Lundy MD [address] [place] [phone] PCP - General Family Medicine 10/06/20 documented as of this encounter
--- OUTSIDE RECORDS SUMMARY | 2024-12-20 15:13 | XMS_ITS | Encounter Summary ---
Author Organization [facility], Address [address] [place] [address] Phone Care Team Providers Care Director Communications Name Role Phone Christine Lundy MD Primary Care Provider Encounter Details Date Type Department Care Team (Late st Contact Info) Description 05/29/2024 Documentation Only [facility], - Sheryl Malone [address] [place] [phone] Blanca Hunt [address] [place] [address] Social History Tobacco Use Types [...] filedocumented in this encounter Care Teams Director Communications Relationship Specialty Start Date End Date Christine Lundy MD PCP - General Cnc Mechanic 05/04/22 documented as of this encounter
--- OUTSIDE RECORDS SUMMARY | 2024-12-20 15:13 | XMS_ITS | Clinical Summary ---
Author Organization [facility], Address [address] [place] [address] [place] [address] Phone Care Team Providers Care Resident Care Provider Name Role Phone Christine Lundy MD Primary [...] patient's age to complete this topic Insurance [facility] Care Dual SNP ([id number]) [place] [id number] Care Teams Resident Care Provider Relationship Specialty Start Date End Date Christine Lundy MD PCP - General Supervisor Forming And Tempering 05/04/22
== END 2024-12-20 13:29 | disposition home or self-care (01) ==
LOC: HO.HGS 12:56
PROVIDERS: PCP General Practice; Visit Provider Surgery
DX: K40.90 Unilateral inguinal hernia, without obstruction or gangrene, not specified as recurrent (principal)
CPT/HCPCS: 99213

== ENCOUNTER → 2024-12-20 12:55 | Outpatient (BNVA) | payer OTHER, SELFPAY | PROVIDERS: PCP General Practice; Visit Provider Surgery | DX: K40.90 Unilateral inguinal hernia, without obstruction or gangrene, not specified as recurrent (principal) | CPT/HCPCS: 99212 ==

== ENCOUNTER 2025-02-05 08:03 | Outpatient (REF) | payer OTHER, SELFPAY ==
--- NOTE | ~2025-02-05 | CT_ITS ---
CLINICAL HISTORY: N43.3 - Hydrocele, unspecified CT abdomen and pelvis with and without contrast Comparison: None Findings: No consolidation or pleural effusion. 8 mm calculus at the junction between a right upper pole infundibulum and the right renal pelvis. No associated obstructive change. Additional 3 mm nonobstructing calculus within the lower pole of the right kidney. There is bilateral renal volume loss. There is a 3.7 cm cyst within the upper pole of the left kidney. There is a subcentimeter cyst within the right kidney. The liver is hypodense. The spleen, pancreas and adrenal glands are unremarkable. There has been a prior cholecystectomy. No bowel obstruction, pneumoperitoneum, or pneumatosis. There is a moderate left-sided inguinal hernia containing fat. Prostate gland is borderline in size. The urinary bladder is unremarkable. The appendix is normal. No acute fracture. IMPRESSION: 1. There are 2 nonobstructive calculi within the right kidney. 2. There is fatty infiltration of the liver. 3. There is a moderate left-sided inguinal hernia containing fat. This document has been electronically signed by: Jeaneth Quiroz MD on 02/05/2025 15:14:01
--- OUTSIDE RECORDS SUMMARY | 2025-02-05 08:10 | XMS_ITS | Encounter Summary ---
Author Organization [employer] Address [address] [facility] 7t [place] [address] Care Team Providers Care Towboat Pilot Name Role Phone Christine Lundy MD Primary Care Provider [phone] Reason for Visit * Reason Onset Date Comments Nurse Triage 03/05/2024 Encounter Details Date Type Department Care Team ([facility] st Contact Info) Description 03/05/2024 Telephone [facility] [address] [place], [place] [phone] Christine Lundy MD [address] [place], [place] [phone] Nurse Triage Social History Tobacco Use Types [...] the past 12 months, has t he [employer], gas, oil or water [employer] threatened to shut off services in your [...] tests. Pt is advised to come to [facility] today open till 800pm for [...] accepted this outcome Please contact pt @ [phone] documented in this encounter Plan of Treatment Not on file documented as of this encounter Visit Diagnoses Not on filedocumented in this encounter Care Teams Towboat Pilot Relationship Specialty Start Date End Date Christine Lundy MD [address] [place] [address] PCP - General Family Medicine 10/06/20 documented as of this encounter
[2025-02-05] MEDS: iohexoL 350 MG/ML 100 ML INFUS..BTL IV (08:58)
[2025-02-05 14:42] LABS: Creatinine POC 1.3 mg/dL (0.5-1.4); GFR POC 59
== END 2025-02-05 08:04 | disposition home or self-care (01) ==
LOC: HO.CT 08:03
PROVIDERS: PCP Internal Medicine; Visit Provider Urology
DX: N43.3 Hydrocele, unspecified (principal); N28.1 Cyst of kidney, acquired; R39.12 Poor urinary stream; N28.89 Other specified disorders of kidney and ureter; N39.43 Post-void dribbling; N20.0 Calculus of kidney
CPT/HCPCS: 74178; 82565; Q9967

== ENCOUNTER → 2025-02-05 08:04 | Outpatient (BNV) | payer OTHER, SELFPAY | PROVIDERS: PCP Internal Medicine; Visit Provider Radiology Diagnostic Radiology | DX: N28.1 Cyst of kidney, acquired (principal) | CPT/HCPCS: 74178 ==

== ENCOUNTER 2025-02-21 07:38 | Outpatient (AMB) | payer OTHER, SELFPAY ==
--- NOTE | 2025-02-21 07:45 | MHC.OFFVIS ---
Intake Visit Reasons: 3m Follow up/ CT Intake Note: Patient presents to office today for follow up CT results Urology Medications: Vitamin B6, Tamsulosin Blood Thinner: none Security Advisor Required: No Accompanied by: Self / Same As Patient Allergies No Known Allergies Allergy (Verified 02/21/25 07:46) HPI Comments Details: 02/21/25--status post left hydrocelectomy 11/13/2024. He has had persistent intermittent left-sided pain also has left inguinal hernia here for follow-up to evaluate to review CAT scan. History of Present Illness - The patient is a 69-year-old male presenting with follow-up for left hydrocelectomy and CAT scan review. - The patient underwent left hydrocelectomy on 11/13/24 and has experienced persistent intermittent left-sided pain since the procedure. - The patient reports the left testicle is hard and larger than the right, with pain exacerbated by walking and heavy lifting. - The patient has a history of left inguinal hernia, with a moderate hernia noted on recent imaging. - The patient has a history of kidney stones, with two stones identified in the right kidney on recent imaging, one measuring 8 mm and the other 3 mm. - The patient is being treated for benign prostatic hyperplasia and is currently on tamsulosin and finasteride. Results - CAT scan revealed two kidney stones in the right kidney, measuring 8 mm and 3 mm. - CAT scan showed a moderate left inguinal hernia filled with fat. Discussion Notes I discussed with the patient the findings of the CAT scan, which revealed two kidney stones in the right kidney and a moderate left inguinal hernia. We talked about the potential need for shockwave lithotripsy for the larger stone and the possibility of monitoring the smaller stone. I explained that the hernia might contribute to the pain but cannot guarantee that repairing it will alleviate the symptoms. We also discussed the continuation of antibiotics and pain management with Tylenol, and the plan to repeat an ultrasound in three months. Additionally, I offered a prescription for daily Cialis to assist with erectile function, explaining the cost and insurance considerations. 12/14/24-- s/p Left hydrocelectomy 11/13/24 History of Present Illness The patient is a 69-year-old male presenting with persistent postoperative pain and swelling following a left hydrocelectomy. The procedure took place on 11/13/2024, and the patient reports pain localized to the incision site, which has been gradually improving. Initial serosanguineous drainage from the incision site has resolved. An ultrasound conducted on 11/28/2024 indicates a persistent septated hydrocele on the left side without signs of infection, and the testicular examination showed normal results with good Doppler flow. Additionally, the patient has been evaluated for an inguinal hernia, experiencing pain in the left groin region. He is scheduled to see a general surgeon on the . Recent diagnostic imaging confirmed that the testicles are normal, but some fluid is still present in the left scrotum. Previously, his PSA was within normal limits at 2.34 ng/mL on 06/21/2024. Despite persistent fullness and discomfort, the patient has noted some improvement in pain at the incision site. Urinary Symptoms Review Results - Tests: Ultrasound on 11/28/2024: Persistent septated hydrocele on the left, normal testicles bilaterally with good Doppler flow. - Labs: PSA on 06/21/2024:2.34 ng/mL (within normal limits). Discussion Notes I discussed with the patient the nature of his ongoing postoperative symptoms. The incision-related pain is expected as part of the healing process and should continue to improve. I explained that the persistent septated hydrocele is likely due to postoperative changes and emphasized the need for allowing more time for resolution. We also reviewed the results indicating no signs of infection and normal testicular appearance. Follow-up with the general surgeon for the inguinal hernia is planned, as it could be contributing to the groin pain. A further evaluation using a pelvic CT is discussed to assess residual issues. We addressed concerns, assured normal PSA levels, and set a three-month follow-up plan. Patient Instructions - Continue medicine as prescribed. - Follow up with the general surgeon for the hernia on the scheduled date. - Expect a call from radiology to schedule the pelvic CT. - Monitor the scrotum for any changes or increased fluid. - Watch for signs of infection like fever or increased drainage. - Return for follow-up in three months or earlier if symptoms worsen. Patient was informed and verbally consented to the use of an ambient scribe for clinic note documentation during this visit. 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, 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 Review of Systems Const All systems reviewed & are unremarkable except as noted in HPI and below Reports no additional complaints Eyes Reports no additional complaints ENT Reports no additional complaints Card Reports no additional complaints Resp Reports no additional complaints GI Reports no additional complaints Reports as per HPI Musc Reports no additional complaints Skin/Breast Reports system reviewed and no additional complaints, except as documented Neuro Reports no additional complaints Psych Reports no additional complaints Endo Reports no additional complaints Ezekiel/Lymph Reports no additional complaints Aller/Immun Reports no additional complaints Results AMB Urinalysis, Automated UA Leukoctes 0 Vesna/uL Last Edit by Rupa Falcon MA on 02/21/25 09:02 UA Nitrite Negative Last Edit by Rupa Falcon MA on 02/21/25 09:02 UA Urobilinogen 3.5 mg/dL Last Edit by Rupa Falcon MA on 02/21/25 09:02 UA Protein 0 mg/dL Last Edit by Rupa Falcon MA on 02/21/25 09:02 UA pH 5.5 Last Edit by Rupa Falcon MA on 02/21/25 09:02 UA Blood 0 Ray/uL Last Edit by Rupa Falcon MA on 02/21/25 09:02 UA Specific [place] 1.015 Last Edit by Rupa Falcon MA on 02/21/25 09:02 UA Ketone Negative Last Edit by Rupa Falcon MA on 02/21/25 09:02 UA Bilirubin 0 mg/dL Last Edit by Rupa Falcon MA on 02/21/25 09:02 UA Glucose 0 mg/dL Last Edit by Rupa Falcon MA on 02/21/25 09:02 Results Reviewed Results Reviewed: Date of Service: 02/05/25 Procedure(s): CT abdomen pelvis wo/w IV con Accession Number(s): [id number] cc: Bora Hall MD; Johnny Penny MD~ Report Number: [id number]: Total DLP = 1102.00 mGy-cm CLINICAL HISTORY: N43.3 - Hydrocele, unspecified CT abdomen and pelvis with and without contrast Comparison: None Findings: No consolidation or pleural effusion. 8 mm calculus at the junction between a right upper pole infundibulum and the right renal pelvis. No associated obstructive change. Additional 3 mm nonobstructing calculus within the lower pole of the right kidney. There is bilateral renal volume loss. There is a 3.7 cm cyst within the upper pole of the left kidney. There is a subcentimeter cyst within the right kidney. The liver is hypodense. The spleen, pancreas and adrenal glands are unremarkable. There has been a prior cholecystectomy. No bowel obstruction, pneumoperitoneum, or pneumatosis. There is a moderate left-sided inguinal hernia containing fat. Prostate gland is borderline in size. The urinary bladder is unremarkable. The appendix is normal. No acute fracture. IMPRESSION: 1. There are 2 nonobstructive calculi within the right kidney. 2. There is fatty infiltration of the liver. 3. There is a moderate left-sided inguinal hernia containing fat. Date of Service: 05/10/24 EXAMINATION: US RETROPERITONEAL LIMITED (RENAL ONLY) FINDINGS: RIGHT KIDNEY: 11.8 x 6.6 x 4.7 cm (SAG x AP x TRV). The kidney is normal in size, contour, and echogenicity. Renal cortical thickness is normal. No renal calculi or hydronephrosis. Benign-appearing renal cysts measuring up to 1.1 cm. No follow-up imaging is recommended. LEFT KIDNEY: 13.1 x 4.8 x 3.9 cm (SAG x AP x TRV). The kidney is normal in size, contour, and echogenicity. Renal cortical thickness is normal. No hydronephrosis. Benign-appearing renal cyst measuring 4.4 cm. No follow up imaging is recommended. Nonobstructing stones measuring 3 mm and 2 mm in the midpole, new from prior CT. US/US renal BI IMPRESSION: Nonobstructing left renal stones measuring 3 mm and 2 mm, new from prior CT. Assessment & Plan Assessment & Plan (1) Hydrocele: Code(s): N43.3 - Hydrocele, unspecified Category: Medical (2) Renal cyst: Code(s): N28.1 - Cyst of kidney, acquired Category: Medical (3) Recurrent nephrolithiasis: Code(s): N20.0 - Calculus of kidney Category: Medical (4) BPH loc w urin obs/LUTS: Code(s): N40.1 - Benign prostatic hyperplasia with lower urinary tract symptoms Category: Medical (5) CKD (chronic kidney disease): Code(s): N18.9 - Chronic kidney disease, unspecified Category: Medical Plan Plan - Continue antibiotics for two weeks to address the hardness in the left testicle. - Prescribe Tylenol 500 mg, one tablet twice a day for two weeks, to manage pain. - Schedule a repeat ultrasound of the testicles in three months to assess changes. - Discussed the option of shockwave lithotripsy for the 8 mm kidney stone, with monitoring as an alternative. - Continue tamsulosin and reorder finasteride for benign prostatic hyperplasia management. - Offered daily Cialis for erectile function, with cost considerations discussed. Orders: Orders US scrotum 3 Months N43.3 - Hydrocele, unspecified, N50.89 - Other specified disorders of the male genital organs AMB Urinalysis Automated Today Z13.9 - Encounter for screening, unspecified Medications: New amoxicillin-pot clavulanate 500-125 mg (Augmentin) 1 tab PO BID 28 tabs 0RF finasteride (Proscar) 5 mg PO DAILY 90 tabs 3RF Refilled tamsulosin 0.4 mg PO BEDTIME 90 caps 3RF 90 days N40.1 - Benign prostatic hyperplasia with lower urinary tract symptoms, R35.1 - Nocturia Patient Instructions: The patient had an opportunity to ask questions regarding treatment plan. The patient expressed understanding and agreement with the above treatment plan. The patient is aware they should contact our office by phone for worsening of their current condition or the appearance of new symptoms. Compliance is encouraged with any medications and followup testing that is ordered. It is a privilege to be allowed the opportunity to participate in the urologic care of your patient. If you have any questions or concerns regarding treatment for the above conditions please do not hesitate to contact me. The office telephone contact is [phone]. This note is constructed in part using voice recognition software. While every effort has been made to ensure accuracy electric frying pan repairer errors may have been included. Yours sincerely, Johnny Penny MD Scribe Plan - Not visible on output: Patient was informed and verbally consented to the use of an ambient scribe for clinic note documentation during this visit. Coding Level of Care Code Est Pt Level 4 (53752) Complex EM visit Add On G2211 Diagnoses Hydrocele N43.3 Renal cyst N28.1 Recurrent nephrolithiasis N20.0 BPH loc w urin obs/LUTS N40.1 CKD (chronic kidney disease) N18.9
== END 2025-02-21 08:45 | disposition home or self-care (01) ==
LOC: HO.HUSH 07:39
PROVIDERS: PCP General Practice; Visit Provider Urology
DX: Z13.9 Encounter for screening, unspecified (principal)

== ENCOUNTER → 2025-02-21 07:38 | Outpatient (BNVA) | payer OTHER, SELFPAY | PROVIDERS: PCP General Practice; Visit Provider Urology | DX: N20.0 Calculus of kidney (principal) | CPT/HCPCS: 81003 ==

== ENCOUNTER 2025-03-23 07:50 | Outpatient (REF) | payer OTHER, SELFPAY ==
[2025-03-23 09:14] LABS: Blood Urea Nitrogen 25 mg/dL (9-16); Estimated Glomerular Filt Rate 45
== END 2025-03-23 07:51 | disposition home or self-care (01) ==
LOC: HO.LAB 07:50
PROVIDERS: PCP General Practice; Visit Provider Internal Medicine
DX: D49.0 Neoplasm of unspecified behavior of digestive system (principal)
CPT/HCPCS: 36415; 82565; 84520; 86301

== ENCOUNTER 2025-03-26 12:03 | Outpatient (REF) | payer OTHER, SELFPAY ==
--- NOTE | ~2025-03-26 | XR_ITS ---
EXAMINATION: XR FOOT, RIGHT CLINICAL INFORMATION: pain with walking COMPARISON: None available. TECHNIQUE: AP, lateral, and oblique views of the right foot. FINDINGS: Mild degenerative changes are present in the first metatarsal phalangeal joint. There are marginal osteophytes. There is hallux valgus deformity. There is density medial to the head and neck region of the first metatarsal. There are are circumscribed lucencies with sclerotic margins along the medial head and neck junction of the first metatarsal. Minimal changes also evident plantar medial base of the proximal phalanx. There are osteophytes involving the sesamoids of the first metatarsal head. There is mild lateral subluxation of the sesamoids. Small plantar and Achilles calcaneal spurs are present. There are osteophytes involving the anterior tibial plafonds. XR/XR foot RT min 3V IMPRESSION: Well-defined lucencies with sclerotic margins involving the medial head and neck region of the first metatarsal is suspicious for gout. There may be involvement of the medial plantar base of the distal phalanx of the great toe. Hallux valgus deformity. 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 Very small plantar and Achilles calcaneal spurs Electronically signed by: Augie Andres MD 03/26/2025 12:34 PM EDT
--- NOTE | ~2025-03-26 | XR_ITS ---
EXAMINATION: XR FOOT 3 OR MORE VIEWS LEFT HISTORY: pain with walking COMPARISON: There are no prior studies available for comparison. FINDINGS: Three views of the left foot are submitted. Osseous mineralization is normal. There is no fracture or dislocation. There is mild degenerative change of the 1st MTP joint with joint space narrowing. There is a small plantar calcaneal spur. The soft tissues are unremarkable. XR/XR foot LT min 3V IMPRESSION: Mild degenerative change of the 1st MTP joint. Electronically signed by: Bryn Daniel MD 03/26/2025 12:42 PM EDT
--- OUTSIDE RECORDS SUMMARY | 2025-03-26 13:00 | XMS_ITS | Encounter Summary ---
Author Organization [employer] Address [address] [facility] 7t [place] [address] Care Team Providers Care Services Manager Name Role Phone Christine Lundy MD Primary Care Provider [phone] Reason for Visit * Reason Onset Date Comments Nurse Triage 03/05/2024 Encounter Details Date Type Department Care Team ([facility] st Contact Info) Description 03/05/2024 Telephone [facility] [address] [place], [place] [phone] Christine Lundy MD [address] [place], [place] [phone] Nurse Triage Social History Tobacco Use Types [...] the past 12 months, has t he [employer], gas, oil or water [employer] threatened to shut off services in your [...] tests. Pt is advised to come to [facility] today open till 800pm for [...] accepted this outcome Please contact pt @ [phone] documented in this encounter Plan of Treatment Not on file documented as of this encounter Visit Diagnoses Not on filedocumented in this encounter Care Teams Services Manager Relationship Specialty Start Date End Date Christine Lundy MD [address] [place] [address] PCP - General Family Medicine 10/06/20 documented as of this encounter
--- OUTSIDE RECORDS SUMMARY | 2025-03-26 13:00 | XMS_ITS | Data Portability ---
Author Organization [place] [facility] Allergy Address [address] [place] [address] Care Team Providers Care Process Assistant Name Role Phone DAVID BAI Primary Care Provider [phone] ELISABET CONLEY Referring Provider Assessment Encounter Date [...] his sleep disordered breathing with CPAP through [facility]. To help with his [...] mcg (0.03 %) nasal spray [address] [facility]/Pharmacy #[id number], [address] [facility], [place], [address], 15:34:19 Patient TargetsNo targets recorded. Patient InstructionsNo [...] Recorded Time Obstructiv e sleep apnea syndrome [id number] Active 2021 Obstructive sleep apnea (adult) (pediatric) ; Note: Date Diagnosed: 06/18/2022 10:07 AM (G47.33) PALOMO JUNIOR MD [address] [place] [address], [place], [phone], [facility] - [facility] 4 19:56:08 Vasomotor rhinitis 0838410 Active 2023 PALOMO JUNIOR MD [address] [place] [address], [place], [phone], [facility] 4 15:34:25 Problem Notes None recorded. Medical Equipment None Reported. Allergies No known drug allergies Medications Name Sig Start Date Stop Date Status Note LastModified by Organization Details LastModified Time cyclobenz aprine 10 mg tablet active Medicati on ID: [id number] B rand Name: cycloben zaprine Send Method: E-Prescr ibed Sub s Allowed: subs [place] [facility] cycloben zaprine Not Available Not [...] 80 mg tablet active Medicati on ID: [id number] B rand Name: atorvast atin Sen d [...] 5 mg tablet active Medicati on ID: 309805 B rand Name: jarod high Send Method: E-Prescr ibed Sub s Allowed: subs [place] Medic ationGen ericName : jarod high Not Available Not Available Not Available [...] ne propionat e 50 mcg/actua tion nasal spray,mihcael pension SPRAY 2 SPRAYS INTO EACH NOSTRIL [...] tablet,ex tended release active Medicati on ID: 403913 B rand Name: Mapap Arthriti s Pain [...] 12.5 mg tablet active Medicati on ID: [id number] B rand Name: hydrochl orothiaz oscar Send [...] Updated DateTime 05/18/2024 172.72 cm 32.7 kg/m2 67648.36 g Maddy Jones [place] - [facility] 05/18/2024 15:18:08 Social History None recorded. Functional Status None recorded. Mental Status None recorded. Family History Nothing Reported. Medical History Condition Response Sleep Disorder Y Hypertension Y Kidney Disease Y Past Encounters Encounter ID Performer Location Encounter Start Date Encounter Closed Date Diagnosis/Indication Diagnosis SNOMED-CT Code Diagnosis ICD10 Code Diagnosis Note [id number] PALOMO JUNIOR MD [facility] [address] [place] [address] 05/18/2024 14:53:41 05/21/2024 07:26:01 Obstructive sleep apnea syndrome 47753109 G47.33 Vasomotor rhinitis 24990 03 J30.0 Health Concerns Section Related Observation LastModified by Organization Detai ls LastModified Time None Recorded Concern Status LastModified by Organization Details LastModified Time None Recorded Advance Directives Directive None Recorded Payers Insurance Date Sequence Insurance Name Policy Number Policy Aquino Covered Member ID Aquino Member ID Guarantor Name 05/18/2024 1 [facility] - DOS ON OR AFTER 2022 - MEDICARE ADVANTAGE [place] & [place] (MEDICARE REPLACEMENT/ADV ANTAGE - PPO) Palomo Falcon [id number] Palomo Falcon
--- OUTSIDE RECORDS SUMMARY | 2025-03-26 13:00 | XMS_ITS | Encounter Summary ---
Author Organization [facility], Address [address] [place] [address] Phone Care Team Providers Care Marine Steamfitter Name Role Phone Christine Lundy MD Primary Care Provider Encounter Details Date Type Department Care Team (Late Contact Info) Description 05/29/2024 Documentation Only [facility], - Sheryl Malone [address] [place] [phone] Blanca Hunt [address] [place] [address] Social History Tobacco Use Types [...] as of this encounter Plan of Treatment Upcoming Encounters Date Type Department Care Team (Late st Contact Info) Description 04/02/2025 3:00 PM EDT Office Visit [facility], [address] [place] [address] Jose Negron MD [address] [place] [address] documented as of this encounter Visit Diagnoses Not on filedocumented in this encounter Care Teams Marine Steamfitter Relationship Specialty Start Date End Date Christine Lundy MD PCP - General Manager Multicultural 05/04/22 documented as of this encounter
--- OUTSIDE RECORDS SUMMARY | 2025-03-26 13:00 | XMS_ITS ---
Author Name [facility] Organization Unknown Care Team Organization Name Specialty Phone Email Start Date End [facility] 07/11/2024
--- OUTSIDE RECORDS SUMMARY | 2025-03-26 13:00 | XMS_ITS | Clinical Summary ---
Author Organization [facility] Address [address] [place] [id number] Care Team Providers Care Signal Fitter Name Role Phone Unavailable Primary Care Provider [...] knee 05/25/2024 Overview (07/31/2024): Dx 05/18/24 at [facility] ED Last Assessment & Plan: Finish prednisone [...] short term relief Recommend reaching out to [facility] for repeat visit due to worsening [...] Continue CPAP for now as prescribed by [facility] for consideration of [...] Vaccine ( season) 2024 07/03/2021, 11/08/2020, 10/11/2020 Influenza Vaccine 03/29/2025 05/25/2024, , 07/09/2022, Additional history exists DTaP/Tdap/Td Vaccines (3 - Td or Tdap) 10/26/2033 10/26/2023, 11/16/2012, 09/11/2003, Additional history exists Zoster (Shingles) Vaccine Completed 2019, 07/29/2020, 05/26/2020, Additional history exists Pneumococcal Vaccines 50+ Completed 07/09/2022, RSV Vaccine 60 years and older and Patients Completed 10/26/2023 Hepatitis B Vaccines Aged Out No long er eligible based on patient's age to complete this topic Insurance [employer] on file
== END 2025-03-26 12:04 | disposition home or self-care (01) ==
LOC: HO.HHCX 12:03
PROVIDERS: PCP General Practice; Visit Provider General Practice
DX: M79.671 Pain in right foot (principal); M79.672 Pain in left foot
CPT/HCPCS: 73630

== ENCOUNTER → 2025-03-26 12:11 | Outpatient (BNV) | payer OTHER, SELFPAY | PROVIDERS: PCP General Practice; Visit Provider Radiology Diagnostic Radiology | DX: M25.774 Osteophyte, right foot (principal); M19.072 Primary osteoarthritis, left ankle and foot | CPT/HCPCS: 73630 ==

== ENCOUNTER 2025-08-05 11:45 | Day surgery (SDC) | payer OTHER, SELFPAY ==
--- OUTSIDE RECORDS SUMMARY | 2025-04-19 07:43 | XMS_ITS | Encounter Summary ---
Author Organization [employer] Address [address] [place] [address] Care Team Providers Care Door Repairer Bus Name Role Phone Christine Lundy MD Primary Care Provider [phone] Reason for Visit * Reason Onset Date Comments Nurse Triage 03/05/2024 Encounter Details Date Type Department Care Team ([facility] st Contact Info) Description 03/05/2024 Telephone [facility] [address] [place], [place] [phone] Christine Lundy MD [address] [place], [place] [phone] Nurse Triage Social History Tobacco Use Types [...] the past 12 months, has t he [employer] gas, oil or water [employer] threatened to shut off services in your [...] tests. Pt is advised to come to [facility] today open till 800pm for provider to [...] accepted this outcome Please contact pt @ [phone] documented in this encounter Plan of Treatment Not on file documented as of this encounter Visit Diagnoses Not on filedocumented in this encounter Care Teams Door Repairer Bus Relationship Specialty Start Date End Date Christine Lundy MD [address] [place] [address] PCP - General Family Medicine 10/06/20 documented as of this encounter
--- OUTSIDE RECORDS SUMMARY | 2025-04-19 07:44 | XMS_ITS | Clinical Summary ---
Author Organization [facility] Address [address] [place] [id number] Care Team Providers Care Fish Farmer Name Role Phone Unavailable Primary Care Provider [...] knee 05/25/2024 Overview (07/31/2024): Dx 05/18/24 at [facility] ED Last Assessment & Plan: Finish prednisone [...] short term relief Recommend reaching out to [facility] for repeat visit due to worsening [...] Continue CPAP for now as prescribed by [facility]NT for consideration of [...]
--- OUTSIDE RECORDS SUMMARY | 2025-04-19 07:44 | XMS_ITS | Encounter Summary ---
Author Organization [facility], Address [address] [place] [address] Phone Care Team Providers Care Osteopathic Resident Name Role Phone Christine Lundy MD Primary Care Provider [phone] Encounter Details Date Type Department Care Team (Late Contact Info) Description 05/29/2024 Documentation Only [facility] [address] [place] [address] Blanca Hunt [address] [place] [phone] Social History Tobacco Use Types Packs/Day [...] Encounters Date Type Department Care Team (Late Contact Info) Description 04/15/2026 1:30 PM EDT Office Visit [facility] [address] [place] [address] Jose Negron MD [address] [place] [address] documented as of this encounter Visit Diagnoses Not on filedocumented in this encounter Care Teams Osteopathic Resident Relationship Specialty Start Date End Date Christine Lundy MD PCP - General [facility] 05/04/22 documented as of this encounter
[2025-05-29 13:57] VITALS: BMI 34.3
--- NOTE | 2025-05-30 10:06 | HO.ANESPROP2 ---
HPI - Anesthesia Eval Consult details Narrative: 70yo M for Colonoscopy [facility] Active Problems Active Problems: All Active Problems Erectile dysfunction (Acute) Orchitis (Acute) CKD (chronic kidney disease) (Acute) BPH loc w urin obs/LUTS (Acute) Scrotal swelling (Acute) Hydrocele (Acute) Renal cyst (Acute) Weak urinary stream (Acute) Angiolipoma (Acute) Renal mass (Acute) Urinary dribbling (Acute) Recurrent nephrolithiasis (Acute) Cervical radiculopathy (Acute) Neural foraminal stenosis of cervical spine (Acute) Right carpal tunnel syndrome (Acute) Tremor (Acute) Dystonia (Acute) Spasmodic torticollis (Acute) Cervicalgia (Acute) Obstructive sleep apnea (Acute) Right inguinal hernia (Acute) Bleeding hemorrhoids (Acute) Hyperlipidemia (Acute) HTN (hypertension) (Acute) Obesity (Acute) Past Medical History Medical History (Updated 05/29/25 @ 13:57 by Nkechi Short RN) Pre-diabetes Right inguinal hernia Tremor Renal cyst Back pain Cervical radiculopathy GALLO on CPAP Bleeding hemorrhoids Hyperlipidemia HTN (hypertension) Obesity Family History Family History Sister Diabetes Son GALLO (obstructive sleep apnea) Surgical History Surgical History (Updated 05/29/25 @ 13:56 by Nkechi Short RN) History of hydrocelectomy Hx of cataract surgery Hx of hernia repair Hx of cholecystectomy Hx of tonsillectomy Hx of carpal tunnel repair History of Problems with Anesthesia: No Social History Social History Do you presently have visiting nurse or other home services: No Alcohol intake: never Patient Tobacco Use Status: Never used Tobacco Current occupational status: employed 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, 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 Meds Allergies Allergy/AdvReac Type Severity Reaction Status Date / Time No Known Allergies Allergy Verified 02/21/25 07:46 Home Medications ?Medication ?Instructions ?Recorded ?Confirmed ?Last Taken ?Type fluticasone propionate 50 1 spray intranasal DAILY 12/23/21 05/29/25 Unknown History mcg/actuation nasal spray,suspension ergocalciferol (vitamin D2) 1,250 1,250 mcg PO QWEEK 06/29/22 05/29/25 Unknown History mcg (50,000 unit) capsule lisinopril 10 1 tab PO DAILY 06/29/22 05/29/25 Unknown History mg-hydrochlorothiazide 12.5 mg tablet acetaminophen 325 mg capsule 650 mg PO Q6H PRN pain 11/09/24 05/29/25 Unknown History Exam Height,Weight and Vital Signs: Height 5 ft 8.5 in Weight 103.873 kg Pertinent Lab Results Pertinent Lab Results: Laboratory Tests 08/15/24 03/23/25 06:19 08:08 Sodium 140 Potassium 3.9 Chloride 106 Carbon Dioxide 26 BUN 25 H Creatinine 1.54 H Assessment and Plan Assessment Anesthesia Assessment: Chart Reviewed Final Anesthetic Review History of Problems with Anesthesia: No
--- NOTE | 2025-08-01 10:55 | HO.ANESPROP2 ---
Documented by User: Eva Guillen NP 08/01/25 10:56 HPI - Anesthesia Eval Consult details Narrative: 70yo M for Colonoscopy [facility] Active Problems Active Problems: All Active Problems Erectile dysfunction (Acute) Orchitis (Acute) CKD (chronic kidney disease) (Acute) BPH loc w urin obs/LUTS (Acute) Scrotal swelling (Acute) Hydrocele (Acute) Renal cyst (Acute) Weak urinary stream (Acute) Angiolipoma (Acute) Renal mass (Acute) Urinary dribbling (Acute) Recurrent nephrolithiasis (Acute) Cervical radiculopathy (Acute) Neural foraminal stenosis of cervical spine (Acute) Right carpal tunnel syndrome (Acute) Tremor (Acute) Dystonia (Acute) Spasmodic torticollis (Acute) Cervicalgia (Acute) Obstructive sleep apnea (Acute) Right inguinal hernia (Acute) Bleeding hemorrhoids (Acute) Hyperlipidemia (Acute) HTN (hypertension) (Acute) Obesity (Acute) Past Medical History Medical History (Updated 05/29/25 @ 13:57 by Nkechi Short RN) Pre-diabetes Right inguinal hernia Tremor Renal cyst Back pain Cervical radiculopathy GALLO on CPAP Bleeding hemorrhoids Hyperlipidemia HTN (hypertension) Obesity Family History Family History Sister Diabetes Son GALLO (obstructive sleep apnea) Surgical History Surgical History (Updated 08/05/25 @ 12:27 by Clara Hernández RN) H/O uvulectomy History of hydrocelectomy Hx of cataract surgery Hx of hernia repair Hx of cholecystectomy Hx of tonsillectomy Hx of carpal tunnel repair History of Problems with Anesthesia: No Social History Social History Do you presently have visiting nurse or other home services: No Alcohol intake: never Patient Tobacco Use Status: Never used Tobacco Use of substances other than those prescribed or required for medical reasons: No Are you DNR?: No Advance Directives: No Advance Directives Information Provided: Yes Current occupational status: employed 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, 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 Meds Allergies Allergy/AdvReac Type Severity Reaction Status Date / Time No Known Allergies Allergy Verified 02/21/25 07:46 Home Medications ?Medication ?Instructions ?Recorded ?Confirmed ?Last Taken ?Type fluticasone propionate 50 1 spray intranasal DAILY 12/23/21 05/29/25 Unknown History mcg/actuation nasal spray,suspension ergocalciferol (vitamin D2) 1,250 1,250 mcg PO QWEEK 06/29/22 05/29/25 Unknown History mcg (50,000 unit) capsule lisinopril 10 1 tab PO DAILY 06/29/22 05/29/25 Unknown History mg-hydrochlorothiazide 12.5 mg tablet acetaminophen 325 mg capsule 650 mg PO Q6H PRN pain 11/09/24 05/29/25 Unknown History Exam Height,Weight and Vital Signs: Height 5 ft 8.5 in Weight 103.873 kg Pertinent Lab Results Pertinent Lab Results: Laboratory Tests 05/18/24 03/23/25 07:44 08:08 WBC 7.1 Hgb 13.5 L Hct 39.9 L Plt Count 175 BUN 25 H Creatinine 1.54 H Assessment and Plan Assessment Anesthesia Assessment: Chart Reviewed Final Anesthetic Review History of Problems with Anesthesia: No Documented by User: Clementina Gregory MD 08/05/25 13:55 [facility] Past Medical History Medical History (Updated 05/29/25 @ 13:57 by Nkechi Short RN) Pre-diabetes Right inguinal hernia Tremor Renal cyst Back pain Cervical radiculopathy GALLO on CPAP Bleeding hemorrhoids Hyperlipidemia HTN (hypertension) Obesity Family History Family History Sister Diabetes Son GALLO (obstructive sleep apnea) Family history of problems with anesthesia: No Surgical History Surgical History (Updated 08/05/25 @ 12:27 by Clara Hernández RN) H/O uvulectomy History of hydrocelectomy Hx of cataract surgery Hx of hernia repair Hx of cholecystectomy Hx of tonsillectomy Hx of carpal tunnel repair Social History Social History Do you presently have visiting nurse or other home services: No Alcohol intake: never Patient Tobacco Use Status: Never used Tobacco Use of substances other than those prescribed or required for medical reasons: No Are you DNR?: No Advance Directives: No Advance Directives Information Provided: Yes Current occupational status: employed 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, 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 Meds Allergies Allergy/AdvReac Type Severity Reaction Status Date / Time No Known Allergies Allergy Verified 02/21/25 07:46 Home Medications ?Medication ?Instructions ?Recorded ?Confirmed ?Last Taken ?Type fluticasone propionate 50 1 spray intranasal DAILY 12/23/21 05/29/25 Unknown History mcg/actuation nasal spray,suspension ergocalciferol (vitamin D2) 1,250 1,250 mcg PO QWEEK 06/29/22 05/29/25 Unknown History mcg (50,000 unit) capsule lisinopril 10 1 tab PO DAILY 06/29/22 05/29/25 Unknown History mg-hydrochlorothiazide 12.5 mg tablet acetaminophen 325 mg capsule 650 mg PO Q6H PRN pain 11/09/24 05/29/25 Unknown History Exam Airway Mallampati Class: II TM Dist: >3cm Neck ROM: Full Heart: rrr Lungs: cta Assessment and Plan Assessment Anesthesia Assessment: Anesthesia Plan Discussed Final Anesthetic Review Family History of Problems with Anesthesia: No NPO: Yes ASA Class: II Final Preanesthetic Review: No Changes in Pt Med Stat, Meds/Allgs Chart Reviewed and Consent Obtained/Reviewed Patient Risk: Low Procedure Risk: Low Anesthetic Plan Anesthetic Plan: MAC: Disposition: Standard PACU
[2025-08-05 12:31] VITALS: BMI 33.5
[2025-08-05 12:43] VITALS: BP 126/67; PULSE 67; RESP 16; TEMP 36.9; O2SAT 96
[2025-08-05] MEDS: Lactated Ringers 1,000 ML 100 ML IVCONT (13:08)
[2025-08-05 15:12] VITALS: BP 110/70; PULSE 70; RESP 16; TEMP 37.3; O2SAT 96
--- NOTE | 2025-08-05 15:14 | PM.OP ---
Brief Operative Note Date of Service: 08/05/25 Pre-op diagnosis: Screening Post-op diagnosis: other (Diverticulosis) Procedure: Colonoscopy to the cecum and TI Surgeon: Bryn Jimenez MD Anesthesia: MAC Was an Repairer Resistance Welding Machines used for this Procedure?: No Estimated blood loss (mL): 0 Pathology: none sent Condition: stable Disposition: PACU
[2025-08-05 15:27] VITALS: BP 103/57; PULSE 75; RESP 15; TEMP 36.7; O2SAT 97
--- NOTE | 2025-08-05 22:55 | OP_ITS ---
DATE OF SERVICE: 08/05/2025 SURGEON: Bryn Jimenez MD INDICATIONS: The patient presents for evaluation of personal history of colon polyps and colorectal cancer screening. Full consent has been obtained from him for this, including risks of bleeding and perforation. PREOPERATIVE DIAGNOSIS: POSTOPERATIVE DIAGNOSIS: PROCEDURE PERFORMED: Colonoscopy to the cecum and terminal ileum. ESTIMATED BLOOD LOSS: COMPLICATIONS: ANESTHESIA: Medication used, monitored anesthesia care. ASSISTANTS: SPECIMENS: PREOPERATIVE DIAGNOSES: Colorectal cancer screening and personal history of colon polyps. POSTOPERATIVE DIAGNOSES: Colorectal cancer screening and personal history of colon polyps, diverticulosis, and internal hemorrhoids. DESCRIPTION OF PROCEDURE: The patient was placed in the left lateral decubitus position. The digital rectal exam revealed no abnormalities. The Olympus video pediatric colonoscope was entered into the rectum and advanced easily to the cecum. Once in the cecum, I did identify normal-appearing cecal pouch with appendiceal orifice and a normal-appearing ileocecal valve. The terminal ileum was cannulated and appeared normal. The scope was withdrawn back in the colon. The entire cecum including the appendiceal orifice and ileocecal valve appeared normal. The scope was slowly withdrawn assessing all mucosal surfaces carefully. Preparation was excellent. I did not visualize any sign of polyps, colitis, nor angiodysplasia. There was a mild amount of sigmoid diverticulosis. In the rectum, scope was retroflexed visualizing internal hemorrhoids, but no other pathology. The rectal mucosa appeared normal. Scope was straightened and withdrawn from the patient. He tolerated the procedure well and was returned to the recovery area in stable condition. IMPRESSION: 1. Diverticulosis. 2. Internal hemorrhoids. PLAN: I would recommend a repeat colonoscopy in 5 years for further screening and surveillance given his previous history of tubular adenomas. He did have a recent MRI of the pancreas in March in which the pancreatic cysts appeared stable. I would recommend a repeat MRI in 2026 in that regard and my office will send him a reminder for that. He would otherwise see me in the interim on a p.r.n. basis. MD BHARATHI Pascual/JASE / [id number]
== END 2025-08-05 16:08 | disposition home or self-care (01) ==
PROVIDERS: PCP General Practice; Visit Provider Internal Medicine
PROC: 0DJD8ZZ Inspection of Lower Intestinal Tract, Via Natural or Artificial Opening Endoscopic (ICD-10-PCS; CPT 45378; principal; 2025-08-05 14:20)
DX: Z12.11 Encounter for screening for malignant neoplasm of colon (principal); Z86.0101 Personal history of adenomatous and serrated colon polyps; D49.0 Neoplasm of unspecified behavior of digestive system; K57.30 Diverticulosis of large intestine without perforation or abscess without bleeding; K64.8 Other hemorrhoids
CPT/HCPCS: G0105; J2704